=== PATIENT | male | born 1950 | race African-American/Black ===

== ENCOUNTER 2020-07-29 08:10 | Day surgery (SDC) | payer MEDICARE, SELFPAY ==
[2020-07-23 13:22] VITALS: BMI 29.6
--- NOTE | 2020-07-27 15:22 | P.CONAN_ITS ---
Documented by User: Nicki Marx 07/27/20 15:24 HPI - Anesthesia Eval Consult details Narrative: 69yo M for Colonoscopy [facility] Past Medical History Medical History Diabetes High cholesterol History of dysphagia Hypertension Surgical History Surgical History History of esophagogastroduodenoscopy (EGD) Hx of colonoscopy Hx of tonsillectomy Social History Social History Smoking Status: Never smoker Second Hand Smoke Exposure: Yes Use of substances other than those prescribed or required for medical reasons: No Advance Directives: No Advance Directives Information Provided: No Meds Allergies Allergy/AdvReac Type Severity Reaction Status Date / Time lisinopril Allergy Unknown anaphalyxis Verified 04/08/20 00:00 Home Medications Medication Instructions Recorded Confirmed Type acetaminophen [Tylenol] 650 mg PO QID PRN 07/23/20 07/23/20 History aspirin [Aspir-81] 81 mg PO DAILY 07/23/20 07/29/20 History cholecalciferol (vitamin D3) 25 mcg PO DAILY 07/23/20 07/23/20 History [Vitamin D3] metformin mg PO 07/23/20 History metoprolol succinate 100 mg PO DAILY 07/23/20 07/29/20 History simvastatin 40 mg PO DAILY 07/23/20 07/23/20 History Exam Exam Date and Time: July 27, 2020 1522 Height,Weight and Vital Signs: Height 5 ft 8 in Weight 88.451 kg Pertinent Lab Results Pertinent Lab Results: Laboratory Tests 02/17/20 02/17/20 06:23 06:23 WBC 8.3 Hgb 13.9 L Hct 42.1 Plt Count 459 H D Sodium 138 Potassium 4.2 Chloride 103 BUN 18 H Creatinine 1.11 Assessment and Plan Assessment Anesthesia Assessment: Chart Reviewed Documented by User: Joni Glass 07/29/20 09:42 [facility] Past Medical History Medical History Diabetes High cholesterol History of dysphagia Hypertension Surgical History Surgical History History of esophagogastroduodenoscopy (EGD) Hx of colonoscopy Hx of tonsillectomy Social History Social History Smoking Status: Never smoker Second Hand Smoke Exposure: Yes Use of substances other than those prescribed or required for medical reasons: No Advance Directives: No Advance Directives Information Provided: No Meds Allergies Allergy/AdvReac Type Severity Reaction Status Date / Time lisinopril Allergy Unknown anaphalyxis Verified 04/08/20 00:00 Home Medications Medication Instructions Recorded Confirmed Type acetaminophen [Tylenol] 650 mg PO QID PRN 07/23/20 07/23/20 History aspirin [Aspir-81] 81 mg PO DAILY 07/23/20 07/29/20 History cholecalciferol (vitamin D3) 25 mcg PO DAILY 07/23/20 07/23/20 History [Vitamin D3] metformin mg PO 07/23/20 History metoprolol succinate 100 mg PO DAILY 07/23/20 07/29/20 History simvastatin 40 mg PO DAILY 07/23/20 07/23/20 History Exam Airway Mallampati Class: II TM Dist: >3cm Neck ROM: Full Denture: Upper Loose/Missing/Broken Teeth: Yes Heart: [id number] Lungs: ctab/l Assessment and Plan Assessment Anesthesia Assessment: Anesthesia Plan Discussed, Smoking Cess. Discussed, PAT Visit and Chart Reviewed Final Anesthetic Review NPO: Yes ASA Class: III Final Preanesthetic Review: No Changes in Pt Med Stat, Meds/Allgs Chart Reviewed, Consent Obtained/Reviewed and Anes Risks/Benef Reviewed Patient Risk: Intermediate Procedure Risk: Low Assessment/Block/Sedation in SS: Assess/Block/Sedation-SS Anesthetic Plan Anesthetic Plan: MAC: Disposition: Standard PACU
[2020-07-29 08:38] VITALS: BP 128/83; PULSE 69; RESP 16; TEMP 36.1; O2SAT 98
[2020-07-29] MEDS: Lactated Ringers 1,000 ML 100 ML IVCONT (08:38)
[2020-07-29 08:46] LABS: Glucose, Whole Blood 117 mg/dL (60-115)
[2020-07-29 08:51] VITALS: BMI 30.4
[2020-07-29 10:42] VITALS: BP 106/65; PULSE 60; RESP 14; TEMP 36; O2SAT 97
--- NOTE | 2020-07-29 10:45 | PM.OP ---
Brief Operative Note Date of procedure: 07/29/20 Pre-op diagnosis: Screening Post-op diagnosis: other (Diverticulosis, Internal Hemorrhoids) Procedure: Colonoscopy to cecum and TI Surgeon: Kayden Leon Anesthesia: MAC Estimated blood loss (mL): 0 Pathology: none sent Condition: stable Disposition: PACU
[2020-07-29 10:57] VITALS: BP 117/74; PULSE 66; RESP 18; TEMP 36.1; O2SAT 97
--- NOTE | 2020-07-29 12:11 | OP_ITS ---
SURGEON: Kayden Leon MD INDICATIONS: The patient presents for followup of colorectal cancer screening and personal history of tubular adenoma of the colon. Full consent has been obtained from him for this, including risks of bleeding and perforation. PREOPERATIVE DIAGNOSIS: POSTOPERATIVE DIAGNOSIS: PROCEDURE PERFORMED: Colonoscopy to cecum and terminal ileum. ESTIMATED BLOOD LOSS: COMPLICATIONS: ANESTHESIA: Monitored anesthesia care. ASSISTANTS: SPECIMENS: PREOPERATIVE DIAGNOSES: Colorectal cancer screening and personal history of tubular adenoma of the colon. POSTOPERATIVE DIAGNOSES: Colorectal cancer screening, personal history of tubular adenoma of the colon, diverticulosis, internal hemorrhoids. DESCRIPTION OF PROCEDURE: The patient was placed in the left lateral decubitus position. The digital rectal exam revealed no abnormalities. The Olympus video pediatric colonoscope was entered into the rectum and advanced easily to the cecum. Once in the cecum, I did identify normal-appearing cecal pouch with appendiceal orifice and a normal-appearing ileocecal valve. The terminal ileum was cannulated and appeared normal. The scope was withdrawn back into the colon. The entire cecum and ileocecal valve appeared normal. The scope was slowly withdrawn assessing all mucosal surfaces carefully. Preparation was excellent. I did not visualize any sign of polyps, colitis, or angiodysplasia. There was a mild amount of sigmoid diverticulosis. In the rectum, scope was retroflexed visualizing small internal hemorrhoids, but no other pathology. The rectal mucosa appeared normal. The scope was straightened and withdrawn from the patient. He tolerated the procedure well and was returned to recovery area in stable condition. IMPRESSION: 1. Diverticulosis. 2. Internal hemorrhoids. PLAN: I would recommend a repeat colonoscopy in 5 years for further screening and surveillance. He was advised that he could resume his aspirin today. MD IVAN Ross/MORIS / [id number]
== END 2020-07-29 11:19 | disposition home or self-care (01) ==
PROVIDERS: PCP Internal Medicine; Visit Provider Internal Medicine
PROC: 0DJD8ZZ Inspection of Lower Intestinal Tract, Via Natural or Artificial Opening Endoscopic (ICD-10-PCS; CPT 45378; principal; 2020-07-29 09:30)
DX: Z12.11 Encounter for screening for malignant neoplasm of colon (principal); Z86.010 Personal history of colon polyps; K57.30 Diverticulosis of large intestine without perforation or abscess without bleeding; K64.8 Other hemorrhoids; E11.9 Type 2 diabetes mellitus without complications; I10 Essential (primary) hypertension; E78.00 Pure hypercholesterolemia, unspecified; Z79.82 Long term (current) use of aspirin; Z79.84 Long term (current) use of oral hypoglycemic drugs; Z79.899 Other long term (current) drug therapy
CPT/HCPCS: G0105; 82947

== ENCOUNTER 2021-02-18 07:31 | Outpatient (REF) | payer MEDICARE, SELFPAY ==
--- NOTE | 2021-02-18 07:47 | ECG_ITS ---
Test Reason : HTN Blood Pressure : / mmHG Vent. Rate : 060 BPM Atrial Rate : 060 BPM P-R Int : 198 ms QRS Dur : 098 ms QT Int : 472 ms P-R-T Axes : 052 028 020 degrees QTc Int : 472 ms Sinus rhythm with occasional Premature ventricular complexes Otherwise normal ECG No previous ECGs available Referred By: Elvie Velez Electronically Signed By:Alejandro Martines
[2021-02-18 08:23] LABS: MANUAL DIFF FLAG NO
[2021-02-18 08:29] LABS: Basophils Percent Auto 0.1 % (0-2); Eosinophils Absolute Auto 0.1 X10*3/uL (0.0-0.4); Eosinophils Percent Auto 1.5 % (0-4); Hematocrit 39.8 % (42-52); Hemoglobin 13.2 g/dl (14.0-18.0); Imm Gran Abs Auto 0.01 X10*3/uL (0.00-0.03); Imm Gran Pct Auto 0.1 % (0.0-0.4); Immature Retic Fraction 15.3 % (2.3-13.4); Lymphocytes Absolute Auto 3.9 X10*3/uL (1.2-4.9); Mean Corpuscular HGB Conc 33.2 g/dl (31.0-36.0); Mean Corpuscular Volume 84.3 fL (80-98); Mean Platelet Volume 10.1 fL (9.4-12.4); Monocytes Absolute Auto 0.7 X10*3/uL (0.1-1.2); Neutrophils Absolute Auto 3.2 X10*3/uL (2.0-8.3); Neutrophils Percent Auto 40.3 % (45-73); Platelet Count 282 X10*3/uL (160-400); Red Blood Count 4.72 X10*6/uL (4.60-5.80); Red Cell Distribution Width 15.6 % (11.0-16.0); Retic HGB Equivalent 32.7 pg (30.0-35.0); Reticulocyte Percent 1.5 % (0.5-1.8); Reticulocytes Absolute 0.068 X10*6/uL (0.026-0.095); White Blood Count 7.9 X10*3/uL (4.8-10.8)
[2021-02-18 08:40] LABS: Estimated Average Glucose 134 mg/dL; Hemoglobin A1c % 6.3 %
[2021-02-18 09:05] LABS: Alanine Aminotransferase 22 U/L (0-40); Albumin Level 4.3 g/dL (3.5-5.0); Alkaline Phosphatase 84 U/L (39-117); Anion Gap 13 (12-20); Aspartate Amino Transferase 18 U/L (5-37); Bilirubin Total 0.6 mg/dL (0.0-1.0); Blood Urea Nitrogen 12 mg/dL (9-16); Calcium 9.9 mg/dL (8.4-10.2); Carbon Dioxide 27 mmol/L (22-29); Chloride 104 mmol/L (96-108); Cholesterol 129 mg/dL; Estimated Glomerular Filt Rate 57; Glucose Random 112 mg/dL (60-115); HDL Cholesterol 45 mg/dL; Iron 89 mcg/dL (45-160); LDL Cholesterol Calculated 59 mg/dl; Percent Iron Saturation 29 % (15-50); Potassium 3.9 mmol/L (3.3-5.1); Sodium 140 mmol/L (135-145); Total Iron Binding Capacity 302 mcg/dL (228-428); Total Protein 7.6 g/dL (6.5-8.0); Triglycerides 127 mg/dL; Unsaturated Iron Binding 213 ug/dL
[2021-02-18 09:29] LABS: Ferritin 396 ng/mL (20-250); Free T4 (Free Thyroxine) 0.98 ng/dL (0.71-1.85); Thyroid Stimulating Hormone 1.06 uIU/mL (0.32-4.0)
[2021-02-18 09:34] LABS: Folate 8.3 ng/mL (> or = 4.0); Vitamin B12 850 pg/mL (200-900)
[2021-02-18 10:17] LABS: Creatinine Urine 212.21 mg/dL; Microalbum/Creatinine Ratio Ur 13.1 ug/mg cr
== END 2021-02-18 07:32 | disposition home or self-care (01) ==
LOC: HO.LAB 07:31
PROVIDERS: PCP Internal Medicine; Visit Provider Internal Medicine
DX: I10 Essential (primary) hypertension (principal); E78.00 Pure hypercholesterolemia, unspecified; E11.65 Type 2 diabetes mellitus with hyperglycemia
CPT/HCPCS: 36415; 80053; 80061; 82043; 82607; 82728; 82746; 83036; 83540; 84439; 84443; 85025; 85045; 93005

== ENCOUNTER 2021-08-07 09:44 | Emergency (ER) | payer MEDICARE, SELFPAY ==
[2021-08-07 10:37] VITALS: BP 140/85; PULSE 59; RESP 16; TEMP 36.5; O2SAT 98; BMI 30.4
--- NOTE | 2021-08-07 10:55 | ED_ITS ---
HPI - Eye Problem General Chief complaint: Eye Problems Stated complaint: eye issue Time Seen by Provider: 08/07/21 10:55 History of Present Illness HPI Narrative: Patient complains of left eye redness and discharge for 2 days with no eye pain or vision loss there is no photophobia he does not recall any trauma Related Data Home Medications Medication Instructions Recorded Confirmed acetaminophen 325 mg tablet 650 mg PO QID PRN 07/23/20 04/07/21 (Tylenol) aspirin 81 mg tablet,delayed 81 mg PO DAILY 07/23/20 04/07/21 release cholecalciferol (vitamin D3) 25 25 mcg PO DAILY 07/23/20 04/07/21 mcg (1,000 unit) capsule (Vitamin D3) Previous Rx's Medication Instructions Recorded clindamycin phosphate 1 % lotion 1 appl TOPICAL BEDTIME #60 ml 10/09/20 tadalafil 20 mg tablet (Cialis) 20 mg PO .COMPLEX PRN #10 tab 10/09/20 glimepiride 2 mg tablet 2 mg PO QAM #90 tab 12/10/20 hydrochlorothiazide 25 mg tablet 25 mg PO QAM #90 tab 01/26/21 simvastatin 40 mg tablet 40 mg PO BEDTIME #90 tab 03/23/21 metoprolol succinate 100 mg 100 mg PO DAILY 90 Days #90 tab 04/29/21 tablet,extended release 24 hr metformin 500 mg tablet 500 mg PO BID 90 Days #180 tab 05/10/21 cyanocobalamin (vitamin B-12) 1,000 mcg PO DAILY #90 tab 06/25/21 1,000 mcg tablet terbinafine HCl 250 mg tablet 250 mg PO DAILY 90 Days #90 tab 07/09/21 moxifloxacin 0.5 % eye drops 1 drp OPHTHALMIC (EYE) TID 5 Days 08/07/21 (Vigamox) #3 ml Allergies Allergy/AdvReac Type Severity Reaction Status Date / Time lisinopril Allergy Unknown anaphalyxis Verified 07/09/21 08:45 Review of Systems Review of Systems: Positive for left eye redness and discharge Negatives are no fever no chills no dizziness no weakness no headache no eye pain no photophobia no blurry vision no vision loss no rash Yes all other systems are reviewed and are negative PMFSH Past Medical History Source: nursing notes reviewed Medical History (Updated 08/07/21 @ 11:30 by TA Perdue) Erectile dysfunction High cholesterol History of dysphagia Hypertension Obesity (BMI 30-39.9) Type 2 diabetes mellitus with hyperglycemia Vitamin D deficiency Surgical History History of esophagogastroduodenoscopy (EGD) Hx of colonoscopy Hx of tonsillectomy Family History Family History (Updated 09/28/20 @ 08:50 by Mary Denton [facility]) Father Hypertension Mother Uterine cancer Sister In good health Brother No problems noted. Social History Social History (Updated 04/07/21 @ 09:50 by Elvie Velez MD) Housing: House Alcohol intake: current Alcohol intake frequency: a few times a week Patient Tobacco Use Status: Never used Tobacco e-Cigarette/Vaping Use: Never Used Second Hand Smoke Exposure: Yes Advance Directives: No service: No Current occupational status: employed and retired Physical Exam Vital Signs: Vital Signs: Last Vital Signs Temp 97.7 F 08/07/21 10:37 Pulse 59 08/07/21 10:37 Resp 16 08/07/21 10:37 BP 140/85 H 08/07/21 10:37 Pulse Ox 98 08/07/21 10:37 Body Mass Index 30.4 General appearance no acute distress Head is normocephalic atraumatic Eyes pupils equal round reactive to light extraocular motions are intact visual acuity is 2020 bilaterally The left eye was somewhat injected in the conjunctiva there was a watery discharge, exam with fluorescein did not show any ulcerations or abrasions, no dye uptake The neck is supple Respiratory no distress Skin no rashes Course Course Course Narrative: Patient with complaint of left eye discharge and redness without any eye pain photophobia or vision changes is treated with antibiotic for conjunctivitis Discharge Plan Discharge Clinical Impression: Acute conjunctivitis of left eye Patient Disposition: Home, Self-Care Additional Instructions: Use eyedrops as directed If not improved in 2 days follow with your eye doctor, or call our eye doctor Dr. Buchanan Return to ER any time for vision loss, worsening eye pain any worse condition or any concerns Prescriptions: New moxifloxacin [Vigamox] 0.5 % drops 1 drp ophthalmic (eye) TID 5 Days Qty: 3 RF: 0 No Action glimepiride 2 mg tablet 2 mg PO QAM Qty: 90 RF: 2 hydrochlorothiazide 25 mg tablet 25 mg PO QAM Qty: 90 RF: 2 simvastatin 40 mg tablet 40 mg PO BEDTIME Qty: 90 RF: 2 metoprolol succinate 100 mg tablet extended release 24 hr 100 mg PO DAILY 90 Days Qty: 90 RF: 2 metformin 500 mg tablet 500 mg PO BID 90 Days Qty: 180 RF: 2 cyanocobalamin (vitamin B-12) 1,000 mcg tablet 1,000 mcg PO DAILY Qty: 90 RF: 2 acetaminophen [Tylenol] 325 mg Tablet 650 mg PO QID PRN (Reason: Pain) RF: 0 aspirin [Aspir-81] 81 mg Tablet,Delayed Release (Dr/Ec) 81 mg PO DAILY RF: 0 cholecalciferol (vitamin D3) [Vitamin D3] 25 mcg (1,000 unit) Capsule 25 mcg PO DAILY RF: 0 terbinafine HCl 250 mg tablet 250 mg PO DAILY 90 Days Qty: 90 RF: 0 clindamycin phosphate 1 % lotion 1 appl topical BEDTIME Qty: 60 RF: 0 tadalafil [Cialis] 20 mg tablet 20 mg PO .COMPLEX PRN (Reason: sexual activity) Qty: 10 RF: 4 Referrals: Manish Buchanan [Physician] - 2 days
[2021-08-07] MEDS: Tetracaine HCl/PF 0.5% Oph Sol 4 ML DROPS 1 DROP EYE-LEFT (11:08)
[2021-08-07] MEDS: Fluorescein Sodium STRIP 1 STRIP EYE-LEFT (11:08)
== END 2021-08-07 11:42 | disposition home or self-care (01) ==
PROVIDERS: Emergency Provider Emergency Medicine Emergency Medical Services; PCP Internal Medicine
DX: H10.32 Unspecified acute conjunctivitis, left eye (principal); I10 Essential (primary) hypertension; E11.9 Type 2 diabetes mellitus without complications
CPT/HCPCS: 99283

== ENCOUNTER 2021-09-20 19:09 | Emergency (ER) | payer MEDICARE, SELFPAY ==
[2021-09-20 20:30] VITALS: BP 142/82; PULSE 76; RESP 16; TEMP 36.8; O2SAT 99; BMI 30.4
--- NOTE | 2021-09-20 21:40 | ED_ITS ---
HPI - General Adult General Chief complaint: General Medical Stated complaint: hiccups for 17 hrs Time Seen by Provider: 09/20/21 21:26 Source: patient Mode of arrival: ambulatory Limitations: no limitations History of Present Illness HPI narrative: 70 y/o male with history of diabetes, HTN, HLD, obesity who presents to the ER with intractable hiccups for the last 17 hours. He reports not being able to sleep at all last night because the gums. He has tried several home remedies for hiccups including drinking cold water, holding his breath, eating peer sugar, and he induced vomiting to try to stop the hiccups as well. Once he vomited they did resolve for about 10 or 15 minutes and then they came right back. He reports he has never headache abscess long before, previously has had them for about an hour but never this long. MD complaint: Intractable hiccups Onset (ago): hour(s) (17) Location: chest Radiation: non-radiation Severity: moderate Quality: aching Pain Consistency: constant Relieving factors: none Exacerbating factors: none Associated symptoms: denies other symptoms Treatments prior to arrival: none Related Data Home Medications Medication Instructions Recorded Confirmed acetaminophen 325 mg tablet 650 mg PO QID PRN 07/23/20 04/07/21 (Tylenol) aspirin 81 mg tablet,delayed 81 mg PO DAILY 07/23/20 04/07/21 release cholecalciferol (vitamin D3) 25 25 mcg PO DAILY 07/23/20 04/07/21 mcg (1,000 unit) capsule (Vitamin D3) Previous Rx's Medication Instructions Recorded clindamycin phosphate 1 % lotion 1 appl TOPICAL BEDTIME #60 ml 10/09/20 tadalafil 20 mg tablet (Cialis) 20 mg PO .COMPLEX PRN #10 tab 10/09/20 hydrochlorothiazide 25 mg tablet 25 mg PO QAM #90 tab 01/26/21 simvastatin 40 mg tablet 40 mg PO BEDTIME #90 tab 03/23/21 metoprolol succinate 100 mg 100 mg PO DAILY 90 Days #90 tab 04/29/21 tablet,extended release 24 hr metformin 500 mg tablet 500 mg PO BID 90 Days #180 tab 05/10/21 cyanocobalamin (vitamin B-12) 1,000 mcg PO DAILY #90 tab 06/25/21 1,000 mcg tablet terbinafine HCl 250 mg tablet 250 mg PO DAILY 90 Days #90 tab 07/09/21 moxifloxacin 0.5 % eye drops 1 drp OPHTHALMIC (EYE) TID 5 Days 08/07/21 (Vigamox) #3 ml glimepiride 2 mg tablet 2 mg PO QAM #90 tab 09/06/21 chlorpromazine 25 mg tablet 25 mg PO TID #9 tab 09/21/21 Allergies Allergy/AdvReac Type Severity Reaction Status Date / Time lisinopril Allergy Unknown anaphalyxis Verified 07/09/21 08:45 Review of Systems Constitutional: Constitutional: Denies chills, Denies fever(s) and Reports headache(s) Eyes: Eyes: Reports no additional eye complaints ENT: Denies dysphagia, Denies otalgia, Reports headache(s) and Denies odynophagia Cardiovascular: Cardiovascular: Denies chest pain and Denies dyspnea Respiratory: Respiratory: Denies cough and Denies dyspnea Gastrointestinal: Gastrointestinal: Denies dysphagia, Denies nausea, Denies odynophagia and Reports vomiting Neurologic: Reports Neuro-related abnormal movements and Reports headache(s) Psychiatric: Psychiatric: Reports abnormal sleep pattern, Reports anxiety and Reports depression [facility] Past Medical History Medical History (Updated 09/21/21 @ 00:26 by TA James) Erectile dysfunction High cholesterol History of dysphagia Hypertension Obesity (BMI 30-39.9) Type 2 diabetes mellitus with hyperglycemia Vitamin D deficiency Surgical History History of esophagogastroduodenoscopy (EGD) Hx of colonoscopy Hx of tonsillectomy Family History Family History (Updated 09/28/20 @ 08:50 by Mary Denton Katerine) Father Hypertension Mother Uterine cancer Sister In good health Brother No problems noted. Social History Social History (Updated 04/07/21 @ 09:50 by Elvie Velez MD) Housing: House Alcohol intake: current Alcohol intake frequency: a few times a week Patient Tobacco Use Status: Never used Tobacco e-Cigarette/Vaping Use: Never Used Second Hand Smoke Exposure: Yes Advance Directives: No Advance Directives Information Provided: No service: No Current occupational status: employed and retired Physical Exam Vital Signs: Vital Signs: Last Vital Signs Temp 98.2 F 09/20/21 20:30 Pulse 76 01/03/22 20:30 Resp 16 09/20/21 20:30 BP 142/82 H 09/20/21 20:30 Pulse Ox 99 09/20/21 20:30 BMI result Body Mass Index 30.4 Appearance: Alert. Oriented X3. No acute distress. HEENT: normal external inspection Neck: Normal inspection. Neck supple. CVS: Normal heart rate and rhythm. Pulses normal. Respiratory: No respiratory distress. Breath sounds normal. Skin: Skin warm and dry. Normal skin color. Normal skin turgor. No rashes. Extremities: atraumatic x4, normal inspection, normal ROM Neuro: Oriented X 3. No motor deficit. No sensory deficit. Course Course Course Narrative: 70-year-old male presenting to the ER with intractable hiccups for the last 18 hours. Will give a trial of PPI and Compazine and re-evaluate. We tried several attempts at making hiccups with no success. Reevaluation(s) Reevaluation #1: No improvement will give a dose of Thorazine reassess. Reevaluation #2: Patient continues to have hiccups. Will give additional dose of Thorazine and plan to DC on a very short course given his age. He will follow-up with his PCP tomorrow. Critical Care Time Critical Care Time Critical Care Time: No Discharge Plan Discharge Clinical Impression: Intractable hiccoughs Patient Disposition: Home, Self-Care Instructions: Hiccups (ED) Additional Instructions: If you develop new or worsening symptoms call 911 or come back to the ER for further evaluation. Prescriptions: New chlorpromazine 25 mg tablet 25 mg PO TID Qty: 9 RF: 0 No Action hydrochlorothiazide 25 mg tablet 25 mg PO QAM Qty: 90 RF: 2 simvastatin 40 mg tablet 40 mg PO BEDTIME Qty: 90 RF: 2 metoprolol succinate 100 mg tablet extended release 24 hr 100 mg PO DAILY 90 Days Qty: 90 RF: 2 metformin 500 mg tablet 500 mg PO BID 90 Days Qty: 180 RF: 2 cyanocobalamin (vitamin B-12) 1,000 mcg tablet 1,000 mcg PO DAILY Qty: 90 RF: 2 glimepiride 2 mg tablet 2 mg PO QAM Qty: 90 RF: 2 acetaminophen [Tylenol] 325 mg Tablet 650 mg PO QID PRN (Reason: Pain) RF: 0 aspirin [Aspir-81] 81 mg Tablet,Delayed Release (Dr/Ec) 81 mg PO DAILY RF: 0 cholecalciferol (vitamin D3) [Vitamin D3] 25 mcg (1,000 unit) Capsule 25 mcg PO DAILY RF: 0 moxifloxacin [Vigamox] 0.5 % drops 1 drp ophthalmic (eye) TID 5 Days Qty: 3 RF: 0 terbinafine HCl 250 mg tablet 250 mg PO DAILY 90 Days Qty: 90 RF: 0 clindamycin phosphate 1 % lotion 1 appl topical BEDTIME Qty: 60 RF: 0 tadalafil [Cialis] 20 mg tablet 20 mg PO .COMPLEX PRN (Reason: sexual activity) Qty: 10 RF: 4
[2021-09-20] MEDS: Omeprazole 40 MG CAPSULE.DR PO (22:13)
[2021-09-20] MEDS: Prochlorperazine Maleate 5 MG TABLET 10 MG PO (22:13)
[2021-09-20] MEDS: chlorproMAZINE HCl 25 MG TABLET PO (22:58)
[2021-09-21] MEDS: chlorproMAZINE HCl 25 MG TABLET PO (00:55)
== END 2021-09-21 01:18 | disposition home or self-care (01) ==
PROVIDERS: Emergency Provider Internal Medicine; PCP Internal Medicine
DX: R06.6 Hiccough (principal); E11.9 Type 2 diabetes mellitus without complications; I10 Essential (primary) hypertension; E78.5 Hyperlipidemia, unspecified; Z79.02 Long term (current) use of antithrombotics/antiplatelets; Z79.899 Other long term (current) drug therapy
CPT/HCPCS: 99283

== ENCOUNTER 2022-02-21 05:58 | Outpatient (REF) | payer MEDICARE, SELFPAY ==
[2022-02-21 06:16] LABS: MANUAL DIFF FLAG NO
[2022-02-21 07:29] LABS: Basophils Percent Auto 0.2 % (0-2); Eosinophils Absolute Auto 0.1 X10*3/uL (0.0-0.4); Eosinophils Percent Auto 1.2 % (0-4); Hematocrit 39.9 % (42.0-52.0); Hemoglobin 13.3 g/dl (14.0-18.0); Imm Gran Abs Auto 0.01 X10*3/uL (0.00-0.03); Imm Gran Pct Auto 0.2 % (0.0-0.4); Lymphocytes Absolute Auto 3.2 X10*3/uL (1.2-4.9); Lymphocytes Percent Auto 49.8 % (20-40); Mean Corpuscular HGB Conc 33.3 g/dl (31.0-36.0); Mean Corpuscular Hemoglobin 28.5 pg (27.0-33.0); Mean Corpuscular Volume 85.4 fL (80.0-98.0); Monocytes Absolute Auto 0.7 X10*3/uL (0.1-1.2); Monocytes Percent Auto 10.8 % (2-11); Neutrophils Absolute Auto 2.4 x10*3/uL (2.0-8.3); Neutrophils Percent Auto 37.8 % (45-73); Platelet Count 396 X10*3/uL (160-400); Red Blood Count 4.67 X10*6/uL (4.60-5.80); Red Cell Distribution Width 13.5 % (11.0-16.0); White Blood Count 6.5 X10*3/uL (4.8-10.8)
[2022-02-21 08:00] LABS: Estimated Average Glucose 143 mg/dL; Hemoglobin A1c % 6.6 %
[2022-02-21 08:03] LABS: Alanine Aminotransferase 20 U/L (0-40); Albumin Level 4.2 g/dL (3.5-5.0); Alkaline Phosphatase 98 U/L (39-117); Anion Gap 17 (12-20); Aspartate Amino Transferase 17 U/L (5-37); Bilirubin Total 0.5 mg/dL (0.0-1.0); Blood Urea Nitrogen 10 mg/dL (9-16); Calcium 10.1 mg/dL (8.4-10.2); Carbon Dioxide 26 mmol/L (22-29); Chloride 100 mmol/L (96-108); Cholesterol 117 mg/dL; Estimated Glomerular Filt Rate > 60; Glucose Random 115 mg/dL (60-115); HDL Cholesterol 39 mg/dL; Iron 98 mcg/dL (45-160); LDL Cholesterol Calculated 60 mg/dl; Percent Iron Saturation 35 % (15-50); Potassium 3.7 mmol/L (3.3-5.1); Sodium 139 mmol/L (135-145); Total Iron Binding Capacity 278 mcg/dL (228-428); Total Protein 7.9 g/dL (6.5-8.0); Triglycerides 93 mg/dL; Unsaturated Iron Binding 180 ug/dL
[2022-02-21 08:14] LABS: Ferritin 437 ng/mL (20-250); Free T4 (Free Thyroxine) 1.03 ng/dL (0.71-1.85); Prostate Specific Antigen Scr 4.45 ng/mL (<0.05-4.0); Thyroid Stimulating Hormone 0.62 uIU/mL (0.32-4.0)
[2022-02-21 08:57] LABS: Creatinine Urine 243.26 mg/dL; Microalbum/Creatinine Ratio Ur 10.6 ug/mg cr
[2022-02-21 13:54] LABS: Vitamin B12 > 2000 pg/mL (200-900)
== END 2022-02-21 05:59 | disposition home or self-care (01) ==
LOC: HO.LAB 05:58
PROVIDERS: PCP Internal Medicine; Visit Provider Internal Medicine
DX: Z12.5 Encounter for screening for malignant neoplasm of prostate (principal); E78.00 Pure hypercholesterolemia, unspecified; E11.65 Type 2 diabetes mellitus with hyperglycemia; I10 Essential (primary) hypertension
CPT/HCPCS: 36415; 80053; 80061; 82043; 82607; 82728; 82746; 83036; 83540; 84153; 84439; 84443; 85025

== ENCOUNTER 2022-03-18 08:28 | Outpatient (REF) | payer MEDICARE, SELFPAY ==
[2022-03-18 10:18] LABS: Creatinine Urine 113.53 mg/dL
[2022-03-18 10:41] LABS: PSA,Total (Free>4and<10) 4.06 ng/mL (0.00-4.00)
[2022-03-22 11:16] LABS: Free Prostate Spec Ag 0.4 ng/mL; Percent Free Prostate Spec Ag 12 % (calc) (>25); Prostate Specific Ag Total 3.4 ng/mL (< OR = 4.0)
== END 2022-03-18 08:29 | disposition home or self-care (01) ==
LOC: HO.LAB 08:28
PROVIDERS: PCP Internal Medicine; Visit Provider Internal Medicine
DX: R97.20 Elevated prostate specific antigen [PSA] (principal); E11.65 Type 2 diabetes mellitus with hyperglycemia; Z12.5 Encounter for screening for malignant neoplasm of prostate
CPT/HCPCS: 36415; 84153; 84154

== ENCOUNTER 2023-02-20 06:00 | Outpatient (REF) | payer MEDICARE, SELFPAY ==
[2023-02-20 06:14] LABS: MANUAL DIFF FLAG NO
[2023-02-20 07:30] LABS: Basophils Percent Auto 0.1 % (0-2); Eosinophils Absolute Auto 0.1 X10*3/uL (0.0-0.4); Eosinophils Percent Auto 1.6 % (0-4); Hematocrit 36.4 % (42.0-52.0); Hemoglobin 12.1 g/dl (14.0-18.0); Imm Gran Abs Auto 0.02 X10*3/uL (0.00-0.03); Imm Gran Pct Auto 0.2 % (0.0-0.4); Lymphocytes Absolute Auto 4.4 X10*3/uL (1.2-4.9); Lymphocytes Percent Auto 55.1 % (20-40); Mean Corpuscular HGB Conc 33.2 g/dl (31.0-36.0); Mean Corpuscular Hemoglobin 28.7 pg (27.0-33.0); Mean Corpuscular Volume 86.3 fL (80.0-98.0); Mean Platelet Volume 10.9 fL (9.4-12.4); Monocytes Absolute Auto 0.7 X10*3/uL (0.1-1.2); Monocytes Percent Auto 9.1 % (2-11); Neutrophils Absolute Auto 2.7 x10*3/uL (2.0-8.3); Neutrophils Percent Auto 33.9 % (45-73); Platelet Count 304 X10*3/uL (160-400); Red Blood Count 4.22 X10*6/uL (4.60-5.80); Red Cell Distribution Width 15.4 % (11.0-16.0); White Blood Count 8.1 X10*3/uL (4.8-10.8)
[2023-02-20 07:48] LABS: Estimated Average Glucose 128 mg/dL; Hemoglobin A1c % 6.1 %
[2023-02-20 08:21] LABS: Alanine Aminotransferase 16 U/L (0-40); Albumin Level 3.9 g/dL (3.5-5.0); Alkaline Phosphatase 79 U/L (39-117); Anion Gap 12 (12-20); Aspartate Amino Transferase 16 U/L (5-37); Bilirubin Total 0.4 mg/dL (0.0-1.0); Blood Urea Nitrogen 10 mg/dL (9-16); Calcium 9.6 mg/dL (8.4-10.2); Carbon Dioxide 28 mmol/L (22-29); Chloride 105 mmol/L (96-108); Cholesterol 137 mg/dL; Estimated Glomerular Filt Rate > 60; Glucose Random 105 mg/dL (60-115); HDL Cholesterol 47 mg/dL; LDL Cholesterol Calculated 71 mg/dl; Potassium 4.1 mmol/L (3.3-5.1); Sodium 141 mmol/L (135-145); Total Protein 7.4 g/dL (6.5-8.0); Triglycerides 95 mg/dL
[2023-02-20 08:43] LABS: Folate 9.6 ng/mL (> or = 4.0); Prostate Specific Antigen Scr 6.13 ng/mL (<0.05-4.0); Thyroid Stimulating Hormone 0.89 uIU/mL (0.32-4.0); Vitamin B12 1524 pg/mL (200-900)
[2023-02-20 09:12] LABS: Creatinine Urine 73.32 mg/dL; Microalbum/Creatinine Ratio Ur 16.3 ug/mg cr
== END 2023-02-20 06:01 | disposition home or self-care (01) ==
LOC: HO.LAB 06:00
PROVIDERS: PCP Internal Medicine; Visit Provider Internal Medicine
DX: Z12.5 Encounter for screening for malignant neoplasm of prostate (principal); E11.65 Type 2 diabetes mellitus with hyperglycemia; E78.00 Pure hypercholesterolemia, unspecified; R97.20 Elevated prostate specific antigen [PSA]
CPT/HCPCS: 36415; 80053; 80061; 82043; 82607; 82746; 83036; 84153; 84439; 84443; 85025

== ENCOUNTER → 2023-03-14 10:41 | Outpatient (BNVA) | payer MEDICARE, SELFPAY | PROVIDERS: PCP Internal Medicine; Visit Provider Nurse Practitioner Family | DX: R97.20 Elevated prostate specific antigen [PSA] (principal); R39.15 Urgency of urination; R35.0 Frequency of micturition; R35.1 Nocturia | CPT/HCPCS: 99202 ==

== ENCOUNTER 2023-03-29 09:30 | Outpatient (REF) | payer MEDICARE, SELFPAY ==
--- NOTE | ~2023-03-29 | US_ITS ---
EXAMINATION: US RETROPERITONEAL COMPLETE (RENAL) CLINICAL INFORMATION: Nocturia. COMPARISON: None available. TECHNIQUE: Real-time imaging of the kidneys and bladder. FINDINGS: RIGHT KIDNEY: 9.5 x 4.7 x 5.2 cm (SAG x AP x TRV). The kidney is normal in size, contour, and echogenicity. Renal cortical thickness is normal. No calculi or focal parenchymal lesions. No hydronephrosis. LEFT KIDNEY: 10.4 x 5.7 x 6.2 cm (SAG x AP x TRV). The kidney is normal in size, contour, and echogenicity. Renal cortical thickness is normal. No calculi or focal parenchymal lesions. No hydronephrosis. BLADDER: Well distended and normal. Bilateral ureteral jets are demonstrated. Prevoid bladder volume is 212 mL. Postvoid bladder volume is 90.4 mL. A simply mildly thick-walled and trabeculated urinary bladder. ADDITIONAL FINDINGS: Prostate is enlarged with a volume of 41.2 mL. US/US retroperitoneal comp IMPRESSION: 1. Small to moderate postvoid bladder residual of 90.4 mL. 2. Possibly mildly thick-walled and trabeculated urinary bladder. Consider correlation with any symptoms of cystitis or bladder outlet obstruction 3. Prostate is enlarged with a volume of 41.2 mL.
[2023-03-29 13:23] LABS: PSA,Total (Free>4and<10) 5.09 ng/mL (0.00-4.00)
[2023-03-31 10:43] LABS: Free Prostate Spec Ag 0.3 ng/mL; Percent Free Prostate Spec Ag 7 % (calc) (>25); Prostate Specific Ag Total 4.6 ng/mL (< OR = 4.0)
== END 2023-03-29 09:31 | disposition home or self-care (01) ==
LOC: HO.US 09:30
PROVIDERS: PCP Internal Medicine; Visit Provider Nurse Practitioner Family
DX: R35.1 Nocturia (principal); R35.0 Frequency of micturition; R39.15 Urgency of urination; R97.20 Elevated prostate specific antigen [PSA]; Z12.5 Encounter for screening for malignant neoplasm of prostate
CPT/HCPCS: 36415; 76770; 84153; 84154

== ENCOUNTER 2023-04-13 14:56 | Outpatient (AMB) | payer MEDICARE, SELFPAY ==
--- NOTE | 2023-04-13 14:56 | MHC.OFFVIS ---
Intake Intake Visit Reasons: follow up/PSA/US Intake Note: Patient presents for follow up visit PSA (psa 5.09)/ultrasound (imaging 03/29) Urology Medications: tadalafil Blood Thinner: none Physician Chief Of Pathology Required: No Accompanied by: Self / Same As Patient Allergies lisinopril Allergy (Unknown, Verified 04/13/23 22:03) anaphalyxis Medication List - Last Reconciled 04/13/23 by LUCY Lela-PAULA acetaminophen (Tylenol) 650 mg PO QID PRN cholecalciferol (vitamin D3) (Vitamin D3) 25 mcg PO DAILY clindamycin phosphate 1% 1 appl topical BEDTIME cyanocobalamin (vitamin B-12) 1,000 mcg PO DAILY hydrochlorothiazide 25 mg PO QAM levofloxacin 500 mg PO daily 3 days metformin 500 mg PO BID 90 days metoprolol succinate ER 100 mg PO DAILY 90 days simvastatin 40 mg PO BEDTIME tadalafil (Cialis) 20 mg PO Q 2 days PRN; HPI HPI Comments History of Present Illness Details Jan is a very pleasant 72-year-old male patient of Dr. Velez. He has a past medical history of ED, high cholesterol, hypertension, obesity, vitamin-D deficiency, and type 2 diabetes. He presents to the office today for follow-up. Of note, patient was seen approximately 1 month ago as a new patient for an elevated PSA at which time recommendations were made for redraw of PSA and retroperitoneal ultrasound for further assessment evaluation. These results reviewed with the patient today. Bilateral kidneys with no calculi, lesions, and or hydronephrosis noted. The bladder is well distended and normal. A simply mildly thick walled and trabeculated urinary bladder is noted. The prostate is mildly enlarged at approximately 40 mL. When asked patient reports to be doing and feeling well. In review of patient's chart it appears PSA's are as follows 01/04--2.1 03/09--4.5 04/08--4.1 % free 12% 03/10--6.1 04/09--5.1 % free 7% When asked patient reports urinary frequency with intermittent episodes of nocturia up to 3 times per night has somewhat improved with 5 mg of Cialis daily. He otherwise denies denies urinary urgency, incontinence, hematuria, dysuria, foul smelling urine, changes to urinary stream, flank pain, fever, and or chills. He is happy with his current voiding parameters. Discussed at length potential causes for elevated PSA. Unable to collect urine for urinalysis as patient was unable to void PVR-0ml's. Previous DIXIE; enlarged; smooth, no masses or nodules palpated. Patient denies any known family history of prostate cancer. Discussed at length surveillance monitoring verses prostate biopsy. Discussed risks and benefits of both interventions. Discussed and stressed the importance of managing diabetes for improvement in urinary symptoms as well as overall health and well-being. [facility] Medical History Erectile dysfunction High cholesterol History of dysphagia Hypertension Obesity (BMI 30-39.9) Type 2 diabetes mellitus with hyperglycemia Vitamin D deficiency Surgical History History of esophagogastroduodenoscopy (EGD) Hx of colonoscopy Hx of tonsillectomy Family History Father Hypertension Mother Uterine cancer Sister In good health Brother No problems noted. Social History Housing: House Alcohol intake: current Alcohol intake frequency: a few times a week Patient Tobacco Use Status: Never used Tobacco e-Cigarette/Vaping Use: Never Used Second Hand Smoke Exposure: Yes service: No Current occupational status: employed and retired Cognitive needs: No Hearing needs: No Vision needs: Yes (Glasses) Review of Systems Const All systems reviewed & are unremarkable except as noted in HPI and below Reports as per HPI Eyes Reports no additional complaints ENT Reports no additional complaints Card Reports as per HPI Resp Reports no additional complaints GI Reports no additional complaints Reports as per HPI Musc Reports no additional complaints Neuro Reports no additional complaints Psych Reports no additional complaints Endo Reports as per HPI Physical Exam Const General: cooperative, healthy appearing, comfortable, no acute distress, well developed, alert and awake Orientation/consciousness: patient oriented x3 Limitations: no limitations HEENT Head: Yes normal to inspection, Yes normocephalic and Yes atraumatic Ears: hearing grossly normal bilaterally Eyes General: appearance normal, both eyes and all related structures Neck Neck: Yes normal visual inspection and Yes trachea midline Chest Chest palpation & inspection: normal inspection of the chest Resp Effort & Inspection: normal respiratory effort and able to speak in complete sentences Cardio Rate: regular rate GI Inspection: Yes normal to inspection General: Yes no CVA tenderness Back/Spine/Pelvis Back: no CVA tenderness Skin General skin exam: no rashes or lesions noted Neuro General: patient oriented x3 Extrem General: Yes normal to inspection Psych Appearance: grossly normal and well kempt Mental Status: mental status grossly normal Speech and movement: Normal speech and movement present and Clear speech present Affect: normal affect Attitude: cooperative Thought process: Normal thought process present Thought content: Normal thought content present Insight: Good insight present (Psych) Judgement: Good judgement present (Psych) Office Procedures Post Void Residual Post Residual Void Post Void Residual (PVR): 0 [id number] Void Residual by ultrasound Results Reviewed Results Reviewed: Date of Service: 03/29/23 EXAMINATION: US RETROPERITONEAL COMPLETE (RENAL) FINDINGS: RIGHT KIDNEY: 9.5 x 4.7 x 5.2 cm (SAG x AP x TRV). The kidney is normal in size, contour, and echogenicity. Renal cortical thickness is normal. No calculi or focal parenchymal lesions. No hydronephrosis. LEFT KIDNEY: 10.4 x 5.7 x 6.2 cm (SAG x AP x TRV). The kidney is normal in size, contour, and echogenicity. Renal cortical thickness is normal. No calculi or focal parenchymal lesions. No hydronephrosis. BLADDER: Well distended and normal. Bilateral ureteral jets are demonstrated. Prevoid bladder volume is 212 mL. Postvoid bladder volume is 90.4 mL. A simply mildly thick-walled and trabeculated urinary bladder. ADDITIONAL FINDINGS: Prostate is enlarged with a volume of 41.2 mL. IMPRESSION: 1.? Small to moderate postvoid bladder residual of 90.4 mL. 2.? Possibly mildly thick-walled and trabeculated urinary bladder. Consider correlation with any symptoms of cystitis or bladder outlet obstruction 3.? Prostate is enlarged with a volume of 41.2 mL. Assessment & Plan Assessment & Plan (1) PSA elevation: Code(s): R97.20 - Elevated prostate specific antigen [PSA] (2) Lower urinary tract symptoms: Code(s): R39.9 - Unspecified symptoms and signs involving the genitourinary system (3) Erectile dysfunction: Code(s): N52.9 - Male erectile dysfunction, unspecified Plan: Plan Risks and benefits regarding trans rectal ultrasound with prostate biopsy were discussed.? Options of continued surveillance, no treatment and biopsy were offered. The risks include but are not limited to, urinary tract infection, sepsis, difficulty urinating, bleeding into the rectum or bladder that requires intervention and transfusion,and failure to diagnose prostate cancer. The patient understands the options and the risks involved. They wish to proceed. Printed information was provided to ensure he remains off anticoagulation for the appropriate length of time. He may require cardiology or PCP clearance.? An antibiotic will be administered prior to, and following the procedure Plan Unable to attain urine for urinalysis today however PVR 0 mL. Discussed recent PSA results; as noted above Discussed recent retroperitoneal ultrasound results; as noted above Discussed prostate biopsy verses surveillance monitoring; discussed risks and benefits of both interventions Discussed prostate biopsy at length; discussed risks and benefits Continue 5 mg of Cialis daily as patient reports somewhat improvement in urinary symptoms Antibiotic prescription sent and discussed to be taken day before, morning of, and day after prostate biopsy All questions were answered Will schedule for prostate biopsy with Dr. Thomson as discussed Follow-up status post biopsy per Dr. Thomson's orders; or sooner with any issues, concerns, and or questions. Orders: Orders AMB Post Void Residual by ultrasound Today R39.15 - Urgency of urination Medications: New levofloxacin take 1 tablet day before procedure, 1 tablet day of procedure and 1 tablet day after procedure 500 mg PO daily 3 days 3 tabs 0RF Patient Instructions: The patient had an opportunity to ask questions regarding the treatment plan. All questions were answered. Physical exam, labs, and imaging were discussed and reviewed in detail. As well as risks, benefits, and discussion of treatment choices. No major barriers to understanding were identified. The patient expressed understanding and agreement with the above treatment plan. The patient was made aware they should contact our office by phone for worsening of their current condition, the appearance of new symptoms, or with any questions or concerns. Compliance is encouraged with any medications and follow up testing that is ordered. It is a privilege to be allowed the opportunity to participate in? your urological care.? Again, if you have any questions or concerns If you have any questions or concerns please do not hesitate to contact me. The office is [phone]. This note is constructed using voice recognition software. While every effort has been made to ensure accuracy powder line repairer errors may have been included. Yours sincerely, LUCY Leal-PAULA Coding Level of Care Code Est Pt Level 4 (07808) Diagnoses PSA elevation R97.20 Lower urinary tract symptoms R39.9 Erectile dysfunction N52.9 CPT Codes Post Residual Void - PVR CPT Code: 79584-[id number] Void Residual by ultrasound ([id number])
== END 2023-04-13 15:47 | disposition home or self-care (01) ==
PROVIDERS: PCP Internal Medicine; Visit Provider Nurse Practitioner Family
DX: R97.20 Elevated prostate specific antigen [PSA] (principal); R39.9 Unspecified symptoms and signs involving the genitourinary system; N52.9 Male erectile dysfunction, unspecified
CPT/HCPCS: 99214

== ENCOUNTER → 2023-04-13 14:56 | Outpatient (BNVA) | payer MEDICARE, SELFPAY | PROVIDERS: PCP Internal Medicine; Visit Provider Nurse Practitioner Family | DX: R39.15 Urgency of urination (principal); R97.20 Elevated prostate specific antigen [PSA]; N52.9 Male erectile dysfunction, unspecified; R35.1 Nocturia; Z79.899 Other long term (current) drug therapy | CPT/HCPCS: 51798; 99212 ==

== ENCOUNTER 2023-04-19 10:57 | Outpatient (AMB) | payer MEDICARE, SELFPAY ==
[2023-04-19 11:13] VITALS: BP 142/88; PULSE 58; O2SAT 99; BMI 26.1
--- NOTE | 2023-04-19 11:13 | A.OFFPC_ITS ---
Vital Signs 04/19/23 11:13 04/19/23 11:56 Height 5 ft 8 in Weight 172 lb BMI 26.1 BP 142/88 H 130/70 Blood Pressure Location Lt brachial Lt brachial Position Sitting Sitting Pulse 58 Pulse Source Pulse Oximeter Pulse Oximetry (%) 99 Oxygen Delivery Method Room Air Intake Visit Reasons: DM, HTN Allergies lisinopril Allergy (Unknown, Verified 04/19/23 11:14) anaphalyxis Tobacco use date assessed: 10/10/22 Fall risk assessment: No Falls in past year Last assessed Fall Risk: 04/19/23 Dental Screening Dental Screen Date: 04/19/23 Did you have a dental visit in the last 12 months?: Yes Did you have a dental problem in the last 6 months where you did not have access to dental care?: No Was dental information given to patient?: Patient has dentist HPI DM, HTN HPI Details 72-year-old overweight male with controlled diabetes mellitus, hypertension hypercholesterolemia last seen in December and requested for blood work patient is here for follow-up up-to-date with colonoscopy. Review of the notes follows up with urology for an elevated prostate number patient also had a frequency prostate is enlarged patient is scheduled for prostate biopsy [facility] Medical History Erectile dysfunction High cholesterol History of dysphagia Hypertension Obesity (BMI 30-39.9) Type 2 diabetes mellitus with hyperglycemia Vitamin D deficiency Surgical History History of esophagogastroduodenoscopy (EGD) Hx of colonoscopy Hx of tonsillectomy Family History Father Hypertension Mother Uterine cancer Sister In good health Brother No problems noted. Social History Housing: House Alcohol intake: current Alcohol intake frequency: a few times a week Patient Tobacco Use Status: Never used Tobacco e-Cigarette/Vaping Use: Never Used Second Hand Smoke Exposure: Yes service: No Current occupational status: employed and retired Cognitive needs: No Hearing needs: No Vision needs: Yes (Glasses) Questionnaire PHQ-9 Over the last 2 weeks, how often have you been bothered by any of the following problems? 1. Little interest or pleasure in doing things: not at all 2. Feeling down, depressed, or hopeless: not at all 3. Trouble falling or staying asleep, or sleeping too much: not at all 4. Feeling tired or having little energy: not at all 5. Poor appetite or overeating: not at all 6. Feeling bad about yourself - or that you are a failure or have let yourself or your family down: not at all 7. Trouble concentrating on things, such as reading the newspaper or watching television: not at all 8. Moving or speaking so slowly that other people could have noticed. Or the opposite - being so fidgety or restless that you have been moving around a lot more than usual: not at all 9. Thoughts that you would be better off or of hurting yourself in some way: not at all Total score: 0 Depression Screening Interpretation: Negative Source: Developed by Drs. Kayden Weir, Nicole Rodriguez, Gokul Biggs and colleagues, with an educational claire from [employer]. Thrive Questionnaire Date Thrive assessed: 10/10/22 AUDIT C Alcohol Use Questionnaire (AUDIT-C) 1. How often do you have a drink containing alcohol?: 2-4 times a month 2. How many drinks containing alcohol do you have on a typical day when you are drinking?: 1 or 2 Total Score: 2 MATT-7 AMB Questionnaire MATT-7 Date MATT - 7 assessed: 10/10/22 Source: Developed by Drs. Kayden Weir, Nicole Rodriguez, Gokul Biggs and colleagues, with an educational claire from [employer]. Physical exam (Primary Care) Vital Signs: Last Vital Signs Pulse 58 04/19/23 11:13 BP 142/88 H 04/19/23 11:13 Pulse Ox 99 04/19/23 11:13 Oxygen Delivery Method Room Air 04/19/23 11:13 BMI result Body Mass Index 26.1 Tobacco/Smoking Status: Tobacco use Status Tobacco use date assessed 10/10/22 04/19/23 11:17 Patient Tobacco Use Status Never used Tobacco 04/19/23 11:17 e-Cigarette/Vaping Use Never Used 04/19/23 11:17 PHQ-9: PHQ-9 Score PHQ-9: Total score 0 04/19/23 11:17 Depression Screening Interpretation: Negative Thrive Assessment: Date of Thrive Assessment Date Thrive assessed 10/10/22 04/19/23 11:17 Const General: alert; No acute distress Eyes Conjunctivae: conjunctivae normal Resp Auscultation: clear to auscultation bilaterally Cardio Rate: regular rate Rhythm: regular rhythm GI Inspection: Yes normal to inspection Extrem General: Yes normal to inspection and No edema Assessment and Plan Assessment & Plan (1) Type 2 diabetes mellitus with hyperglycemia: Comment: Dr. Coon 07/04/2022 Code(s): E11.65 - Type 2 diabetes mellitus with hyperglycemia Qualifiers: Diabetes mellitus longterm insulin use: without buttermaker continuous churn use Qualified Code(s): E11.65 - Type 2 diabetes mellitus with hyperglycemia Plan: Decrease the amount of carbohydrate intake, pasta, bread, rice and potatoes are all sugar and that is aside from all the sweet stuff, remember that fruits are good but they are Sweet also. Hemoglobin A1c goal of less than 7.0 (2) Hypertension: Code(s): I10 - Essential (primary) hypertension Qualifiers: Hypertension type: essential hypertension Qualified Code(s): I10 - Essential (primary) hypertension Plan: Continue with blood pressure medication. Decrease salt intake and exercise patient is on metoprolol 100 mg once a day (3) High cholesterol: Code(s): E78.00 - Pure hypercholesterolemia, unspecified Plan: Avoid fried foods, chicken skin, eggs, butter margarine, pastries and meat. Be it pork or beef they have a lot of cholesterol LDL goal of less than 100 patient is on simvastatin 40 mg once a day (4) PSA elevation: Code(s): R97.20 - Elevated prostate specific antigen [PSA] Plan: Prostate biopsy plan by urology (5) Prostate enlargement: Code(s): N40.0 - Benign prostatic hyperplasia without lower urinary tract symptoms Plan: Patient follows up with urology Coding Level of Care Code Est Pt Level 4 (93438) Diagnoses Type 2 diabetes mellitus with hyperglycemia E11.65 Diabetes mellitus buttermaker continuous churn insulin use: without longterm use Hypertension I10 Hypertension type: essential hypertension High cholesterol E78.00 PSA elevation R97.20 Prostate enlargement N40.0
[2023-04-19 11:56] VITALS: BP 130/70
== END 2023-04-19 12:04 | disposition home or self-care (01) ==
PROVIDERS: PCP Internal Medicine; Visit Provider Internal Medicine
DX: E11.65 Type 2 diabetes mellitus with hyperglycemia (principal); I10 Essential (primary) hypertension; E78.00 Pure hypercholesterolemia, unspecified; R97.20 Elevated prostate specific antigen [PSA]; N40.0 Benign prostatic hyperplasia without lower urinary tract symptoms
CPT/HCPCS: 99214

== ENCOUNTER 2023-05-18 07:22 | Outpatient (REF) | payer MEDICARE, SELFPAY ==
[2023-05-18 07:09] VITALS: BP 162/83; PULSE 56; TEMP 36; O2SAT 100
--- NOTE | 2023-05-18 08:19 | W.PM.OPN ---
Operative Note Operative Note Date of Service: 05/18/23 Narrative: Preoperative diagnosis: Elevated PSA Postoperative diagnosis: Elevated PSA Procedure: 1. transrectal ultrasound measurement of prostate 2. transrectal ultrasound-guided pudendal nerve block 3. transrectal ultrasound-guided prostate biopsy 12 core Surgeon: Dr. Costa Thomson Anesthetic: Local Indications for procedure: Elevated PSA 4.6 7% Procedure: After informed consent was verified, the patient was brought into the procedure area and lay left-hand side down on the table. Patient identity confirmed. Perioperative antibiotics confirmed. Safety pause time out performed. DIXIE performed to dilate rectal sphincter Iodine 10cc with Gel was placed per rectum Ultrasound probe was placed per rectum The prostate was measured in 3 dimensions Total volume equals 40 gm No cystic structures were noted Yes calcifications were noted at the surgical margin The prostate was otherwise heterogenous in nature An ultrasound-guided pudendal nerve block was performed using 10 cc of 1% lidocaine. 8 cc was placed at the base and 2 cc of the apex. A 12 core biopsy was performed with 6 cores each side. Two cores were taken at the apex, mid and base. Cores were spaced between lateral and medial. He tolerated the procedure well. Was able to ambulate to bathroom after 5 minutes. Printed instructions regarding antibiotic use and common side effects such as low-grade temperature, potential infection and bleeding were given Pathology: 12 core prostate biopsy.
[2023-05-18 08:47] VITALS: BP 171/94; PULSE 55; RESP 16; TEMP 35.6; O2SAT 100
== END 2023-05-18 07:23 | disposition home or self-care (01) ==
LOC: HO.MS 07:22
PROVIDERS: PCP Internal Medicine; Visit Provider Urology
PROC: (CPT 55700; principal; 2023-05-18 08:00)
DX: C61 Malignant neoplasm of prostate (principal); R97.20 Elevated prostate specific antigen [PSA]
CPT/HCPCS: 55700; 76942; 88305; 88344

== ENCOUNTER → 2023-05-18 07:22 | Outpatient (BNV) | payer MEDICARE, SELFPAY | PROVIDERS: PCP Internal Medicine; Visit Provider Urology | DX: R97.20 Elevated prostate specific antigen [PSA] (principal) | CPT/HCPCS: 55700; 76942 ==

== ENCOUNTER 2023-05-27 21:58 | Emergency (ER) | payer MEDICARE, SELFPAY ==
[2023-05-27 23:01] VITALS: BP 140/72; PULSE 61; RESP 18; TEMP 36.5; O2SAT 100; BMI 25.5
--- NOTE | 2023-05-28 00:48 | ED.GENADULT ---
HPI - General Adult General Chief complaint: General Medical Stated complaint: hiccups Time Seen by Provider: 05/28/23 00:34 Source: patient, family and old records reviewed Mode of arrival: ambulatory Limitations: no limitations History of Present Illness HPI narrative: 72 yo male with PMH of BPH, HLD, HTN, Type 2 DM, intractable hiccups here with c/o 3 days of hiccups hx of same in past he's not sure of triggers. He has had it for 3 days. He vomited x 1. He reports he has responded to liquid in past . This is a typical flair for him. MD complaint: hiccups Onset (ago): day(s) (3) Location: abdomen Radiation: non-radiation Severity: moderate Relieving factors: none Exacerbating factors: eating Associated symptoms: nausea/vomiting (one time vomiting) Treatments prior to arrival: other (tries home remedies that don't work) Related Data Home Medications Medication Instructions Recorded Confirmed acetaminophen 325 mg tablet 650 mg PO QID PRN Pain 07/23/20 10/19/21 (Tylenol) cholecalciferol (vitamin D3) 25 25 mcg PO DAILY 07/23/20 10/19/21 mcg (1,000 unit) capsule (Vitamin D3) Previous Rx's Medication Instructions Recorded clindamycin phosphate 1 % lotion 1 appl topical BEDTIME #60 mL 10/09/20 tadalafil 20 mg tablet (Cialis) 20 mg PO .COMPLEX PRN sexual 10/09/20 activity #10 tabs hydrochlorothiazide 25 mg tablet 25 mg PO QAM #90 tabs 06/09/22 simvastatin 40 mg tablet 40 mg PO BEDTIME #90 tabs 09/08/22 metformin 500 mg tablet 500 mg PO BID 90 days #180 tabs 11/04/22 cyanocobalamin (vitamin B-12) 1,000 mcg PO DAILY #90 tabs 02/28/23 1,000 mcg tablet metoprolol succinate 100 mg 100 mg PO DAILY 90 days #90 tabs 02/28/23 tablet,extended release 24 hr levofloxacin 500 mg tablet 500 mg PO daily 3 days #3 tabs 04/13/23 Allergies Allergy/AdvReac Type Severity Reaction Status Date / Time lisinopril Allergy Unknown anaphalyxis Verified 04/19/23 11:14 Review of Systems Review of Systems: Constitutional : No Fever, No Chills, pos hiccups ENT/Mouth : No sore throat, No Rhinorrhea Eyes: No Eye Pain, No Swelling, No Redness Cardiovascular : No Chest Pain, No SOB Respiratory : No Cough, No Sputum Gastrointestinal : No Nausea, pos Vomiting, No Diarrhea, No abdominal Pain Genitourinary : No Dysuria, No Hematuria Musculoskeletal : No joint pain, No Myalgias, No Joint Swelling Skin : No Skin Lesions, no skin rash Neuro : No Weakness, No Numbness, No Headache Psych : No Anxiety, No Depression Heme/Lymph: No Bruising, No Bleeding,No Lymphadenopathy Endocrine : No Polyuria, No Polydipsia All other systems reviewed and are negative [facility] Past Medical History Source: old records reviewed Medical History Obesity (BMI 30-39.9) Vitamin D deficiency Erectile dysfunction Type 2 diabetes mellitus with hyperglycemia History of dysphagia High cholesterol Hypertension Surgical History Hx of tonsillectomy History of esophagogastroduodenoscopy (EGD) Hx of colonoscopy Family History Family History Father Hypertension Mother Uterine cancer Sister In good health Brother No problems noted. Social History Social History Housing: House Alcohol intake: current Alcohol intake frequency: a few times a week Patient Tobacco Use Status: Never used Tobacco e-Cigarette/Vaping Use: Never Used Second Hand Smoke Exposure: Yes Advance Directives: No Advance Directives Information Provided: No service: No Current occupational status: employed and retired Cognitive needs: No Hearing needs: No Vision needs: Yes (Glasses) Physical Exam ED Vital Signs: Vital Signs - 24 hr 05/27/23 23:01 05/28/23 01:24 Temperature 97.7 F Pulse Rate 61 77 Respiratory Rate 18 18 Blood Pressure 140/72 H 137/73 Pulse Oximetry 100 100 Oxygen Delivery Method Room Air BMI result Body Mass Index 25.5 Appearance: Alert. Oriented X3. No acute distress. hiccups Eyes: Pupils equal, round and reactive to light. ENT: Pharynx normal. Neck: Normal inspection. Neck supple. CVS: Normal heart rate and rhythm. Pulses normal. Respiratory: No respiratory distress. Breath sounds normal. Abdomen: Soft and nontender. Skin: Skin warm and dry. Normal skin color. Normal skin turgor. Extremities: No lower extremity edema. No calf ttp Neuro: Oriented X 3. No motor deficit. No sensory deficit. Course Course Course Narrative: still having hiccups will try baclofen Reevaluation(s) Reevaluation #1: signed out to Dr. Hooper Medications Administered Discontinued Medications Generic Name Dose Route Start Last Admin Trade Name Racquel PRN Reason Stop Dose Admin Lidocaine HCl 15 ml 05/28/23 00:43 05/28/23 01:35 Lidocaine Hcl Viscous 2 % 15 Ml Solution MUCOUS MEM 05/28/23 00:44 15 ml ONCE ONE Administration Omeprazole 40 mg 05/28/23 00:43 05/28/23 01:35 Omeprazole 40 Mg Capsule. PO 05/28/23 00:44 40 mg ONCE ONE Administration Ondansetron HCl 4 mg 05/28/23 00:43 05/28/23 01:23 Ondansetron Odt 4 Mg Tab.Rapdis TRANSLINGU 05/28/23 00:44 4 mg ONCE ONE Administration Prochlorperazine Maleate 10 mg 05/28/23 00:43 05/28/23 01:56 Prochlorperazine Maleate 5 Mg Tablet PO 05/28/23 00:44 10 mg ONCE ONE Administration Medical Decision Making Medical Decision Making MDM Narrative: 72 yo male with PMH of BPH, HLD, HTN, Type 2 DM, intractable hiccups here with c/o 3 days of symptoms at this time he only vomited once he has stable VS he is able to eat this has happened to him many times he has no CP/SOB no abdominal pain will need medications and reassessments. No concern for dehydration. Differential Diagnosis Differential Diagnoses: The differential diagnosis associated with the presentation includes hiccups Admission/Observation Consideration of admission/observation: Escalation of care including admission/observation considered observe until hiccups gone. will need different medications Independent Historian Clinical information obtained from an independent historian. History obtained from or confirmed by: Spouse External Record Review External record reviewed: Inpatient record Tests considered The following testing was considered but not selected: labs - but only vomited x 1 and tolerating PO doubt dehydration Prescription Management I considered prescription management with: Other Discharge Plan Discharge Clinical Impression: Hiccups Patient Disposition: Still a Patient Instructions: Hiccups (ED) Additional Instructions: return for vomiting, pain, fevers, shortness of breath. the medications we gave you can make you dizzy please do not drive or drink alcohol. stay with responsible adult. follow up with your doctor this week. Prescriptions: No Action simvastatin 40 mg tablet 40 mg PO BEDTIME Qty: 90 2RF metformin 500 mg tablet 500 mg PO BID 90 Days Qty: 180 2RF cyanocobalamin (vitamin B-12) 1,000 mcg tablet 1,000 mcg PO DAILY Qty: 90 2RF metoprolol succinate 100 mg tablet extended release 24 hr 100 mg PO DAILY 90 Days Qty: 90 2RF acetaminophen [Tylenol] 325 mg Tablet 650 mg PO QID PRN (Reason: Pain) cholecalciferol (vitamin D3) [Vitamin D3] 25 mcg (1,000 unit) Capsule 25 mcg PO DAILY clindamycin phosphate 1 % lotion 1 appl topical BEDTIME Qty: 60 0RF tadalafil [Cialis] 20 mg tablet 20 mg PO .COMPLEX PRN (Reason: sexual activity) Qty: 10 4RF Rx Instructions: 20 mg PO Q 2 days PRN; hydrochlorothiazide 25 mg tablet 25 mg PO QAM Qty: 90 2RF levofloxacin 500 mg tablet 500 mg PO daily 3 Days Qty: 3 0RF Rx Instructions: take 1 tablet day before procedure, 1 tablet day of procedure and 1 tablet day after procedure
[2023-05-28] MEDS: Ondansetron ODT 4 MG TAB.RAPDIS TRANSLINGU (01:23)
[2023-05-28 01:24] VITALS: BP 137/73; PULSE 77; RESP 18; O2SAT 100
[2023-05-28] MEDS: Lidocaine HCl Viscous 2 % 15 ML SOLUTION MUCOUS MEM (01:35)
[2023-05-28] MEDS: Omeprazole 40 MG CAPSULE.DR PO (01:35)
[2023-05-28] MEDS: Prochlorperazine Maleate 5 MG TABLET 10 MG PO (01:56)
--- NOTE | 2023-05-28 02:54 | PC.NURSE ---
This RN went to [facility] to new room and patient declined stating he felt better and wanted to go home. made aware.
[2023-05-28] MEDS: Baclofen 10 MG TABLET PO (03:00)
== END 2023-05-28 03:13 | disposition home or self-care (01) ==
PROVIDERS: Emergency Provider Emergency Medicine; PCP Internal Medicine
DX: R06.6 Hiccough (principal); I10 Essential (primary) hypertension; E11.9 Type 2 diabetes mellitus without complications; Z79.899 Other long term (current) drug therapy
CPT/HCPCS: 99282

== ENCOUNTER 2023-06-01 11:05 | Outpatient (AMB) | payer MEDICARE, SELFPAY ==
--- NOTE | 2023-06-01 11:25 | A.OFFVIS_ITS ---
Intake Intake Visit Reasons: bx results Intake Note: Patient is present for Follow Up Urology Med: tadalafil Antibiotic Allergy: Blood Thinner: acetaminophen Pharmacy: [facility] Allergies lisinopril Allergy (Unknown, Verified 06/01/23 11:27) anaphalyxis HPI HPI Comments History of Present Illness Details Jan is a very pleasant 72-year-old male patient of Dr. Velez. He has a past medical history of ED, high cholesterol, hypertension, obesity, vitamin-D deficiency, and type 2 diabetes. He presents to the office today for follow-up. Of note, Jan is a pleasant male. He is a patient of Dr. Velez. He seen for the following urologic conditions - elevated PSA - prostate cancer Here for prostate biopsy follow-up Diagnosed with low volume, intermediate risk, clinically localized prostate cancer Plan prostate MRI Good candidate for targeted cryotherapy Risks and benefits discussed with patient Prostate cancer - 05/10 low volume, intermediate risk, clinically localized PSA at diagnosis 5.1, free% 7 Prostate volume 40 g All cores positive left side Histologic type: Acinar adenocarcinoma Histologic grade: [place] score: 3+3=6 (F), 3+4=7 (B,D) % of pattern 4: 20% % of pattern 5: N/A Tumor quantitation: Number cores positive: 3 % of tissue involved: 6% of all tissue Periprostatic fat inv.: Not identified Seminal vesicle inv.: Not identified Perineural inv.: Not identified LVI: Not identified Has been using 5 mg Cialis daily for prostate symptoms PFSH Medical History Obesity (BMI 30-39.9) Vitamin D deficiency Erectile dysfunction Type 2 diabetes mellitus with hyperglycemia History of dysphagia High cholesterol Hypertension Surgical History Hx of tonsillectomy History of esophagogastroduodenoscopy (EGD) Hx of colonoscopy Family History Father Hypertension Mother Uterine cancer Sister In good health Brother No problems noted. Social History Housing: House Alcohol intake: current Alcohol intake frequency: a few times a week Patient Tobacco Use Status: Never used Tobacco e-Cigarette/Vaping Use: Never Used Second Hand Smoke Exposure: Yes service: No Current occupational status: employed and retired Cognitive needs: No Hearing needs: No Vision needs: Yes (Glasses) Review of Systems Const Denies chills and Denies fever(s) Card Reports no additional complaints and Denies syncope Resp Denies cough GI Denies abdominal pain and Denies heartburn Reports as per HPI and Denies change in libido Neuro Denies syncope Psych Denies change in libido Endo Denies change in libido Physical Exam Const General: cooperative, healthy appearing, comfortable and no acute distress Orientation/consciousness: patient oriented x3 HEENT Face and sinus: Yes normal facial exam Mouth: moist mucous membranes Neck Neck: Yes normal visual inspection, Yes full ROM and Yes trachea midline Chest Chest palpation & inspection: normal inspection of the chest Resp Effort & Inspection: normal respiratory effort, able to speak in complete sentences and no respiratory distress GI Inspection: Yes normal to inspection Back/Spine/Pelvis Cervical Spine: normal cervical lordosis Thoracic/Lumbar Spine: thoracic and lumbar spine normal to inspection Skin General skin exam: no rashes or lesions noted Neuro General: patient oriented x3, gait normal, tone normal and moves all extremities Extrem General: Yes normal to inspection and Yes capillary refill normal Assessment & Plan Assessment & Plan (1) Prostate cancer: Code(s): C61 - Malignant neoplasm of prostate Plan Staging assessment for cryotherapy Orders: Orders MR pelvis wo/w con 4 Weeks C61 - Malignant neoplasm of prostate Blood Urea Nitrogen Today C61 - Malignant neoplasm of prostate, R39.15 - Urgency of urination Creatinine Today C61 - Malignant neoplasm of prostate, R39.15 - Urgency of urination Patient Instructions: Imaging studies, laboratory and physical exam results were discussed and reviewed in detail. No major barriers to patient understanding were identified. An opportunity to ask questions regarding the treatment plan was provided. All questions were answered. The patient expressed understanding and agreement with the above treatment plan. The patient is aware they should contact our office by phone for worsening of their current condition or the appearance of new urologic symptoms. Compliance is encouraged with any medications and followup testing that is ordered. It is a privilege to participate in the urologic care of your patient. If you have any questions or concerns regarding treatment for the above conditions, or other urologic issues, please do not hesitate to contact me. The office telep karlo contact is [phone]. This note is constructed using voice recognition software. While every effort has been made to ensure accuracy product merchandiser errors may have been included. Yours sincerely, Dr Costa Thomson MD, RONNY [facility] - Urology Providers of Expert, Compassionate Care for the Genitourinary System Coding Level of Care Code Est Pt Level 4 (07118) Diagnoses Prostate cancer C61
== END 2023-06-01 11:51 | disposition home or self-care (01) ==
PROVIDERS: PCP Internal Medicine; Visit Provider Urology
DX: C61 Malignant neoplasm of prostate (principal); R97.20 Elevated prostate specific antigen [PSA]
CPT/HCPCS: 99214

== ENCOUNTER → 2023-06-01 11:05 | Outpatient (BNVA) | payer MEDICARE, SELFPAY | PROVIDERS: PCP Internal Medicine; Visit Provider Urology | DX: C61 Malignant neoplasm of prostate (principal) | CPT/HCPCS: 99212 ==

== ENCOUNTER 2023-07-07 09:14 | Outpatient (AMB) | payer MEDICARE, SELFPAY ==
--- NOTE | 2023-07-07 09:17 | A.OFFVIS_ITS ---
Intake Intake Visit Reasons: 5w/MRI(set) Intake Note: Patient is Present for Follow Up MRI/PVR Urology Medication: Tadalafil Antibiotic Allergies:None None Blood Thinners: None Pharmacy: [facility] PVR: 0ml Allergies lisinopril Allergy (Unknown, Verified 07/07/23 09:18) anaphalyxis HPI HPI Comments History of Present Illness Details Jan is a very pleasant 72-year-old male patient of Dr. Velez. He has a past medical history of ED, high cholesterol, hypertension, obesity, vitamin-D deficiency, and type 2 diabetes. He presents to the office today for follow-up. Of note, Jan is a pleasant male. He is a patient of Dr. Velez. He seen for the following urologic conditions - elevated PSA - prostate cancer Prostate MRI - confirms left base single legion Given age, imaging, pathology would be good candidate for targeted cryotherapy Risks, benefits and alternatives to therapy were discussed. These include but are not limited to infection, bleeding, damage to local organs and tissues, need for further interventions. Anesthetic risks regarding cardiac arrhythmia, blood clots, and potential mortality were discussed. The patient understands the typical recovery time and the outpatient nature of the procedure. After consideration of these risks the patient gives full informed consent and they wish to move ahead with the procedure. Will start finasteride Plan for targeted cryotherapy in September Prostate cancer - 05/10 low volume, intermediate risk, clinically localized PSA at diagnosis 5.1, free% 7 Prostate volume 40 g All cores positive left side Histologic type: Acinar adenocarcinoma Histologic grade: Ricardo score: 3+3=6 (F), 3+4=7 (B,D) % of pattern 4: 20% % of pattern 5: N/A Tumor quantitation: Number cores positive: 3 % of tissue involved: 6% of all tissue Periprostatic fat inv.: Not identified Seminal vesicle inv.: Not identified Perineural inv.: Not identified LVI: Not identified Has been using 5 mg Cialis daily for prostate symptoms PFSH Medical History Obesity (BMI 30-39.9) Vitamin D deficiency Erectile dysfunction Type 2 diabetes mellitus with hyperglycemia History of dysphagia High cholesterol Hypertension Surgical History Hx of tonsillectomy History of esophagogastroduodenoscopy (EGD) Hx of colonoscopy Family History Father Hypertension Mother Uterine cancer Sister In good health Brother No problems noted. Social History Housing: House Alcohol intake: current Alcohol intake frequency: a few times a week Patient Tobacco Use Status: Never used Tobacco e-Cigarette/Vaping Use: Never Used Second Hand Smoke Exposure: Yes service: No Current occupational status: employed and retired Cognitive needs: No Hearing needs: No Vision needs: Yes (Glasses) Review of Systems Const Denies chills and Denies fever(s) Card Reports no additional complaints and Denies syncope Resp Denies cough GI Denies abdominal pain and Denies heartburn Reports as per HPI and Denies change in libido Neuro Denies syncope Psych Denies change in libido Endo Denies change in libido Physical Exam Const General: cooperative, healthy appearing, comfortable and no acute distress Orientation/consciousness: patient oriented x3 HEENT Face and sinus: Yes normal facial exam Mouth: moist mucous membranes Neck Neck: Yes normal visual inspection, Yes full ROM and Yes trachea midline Chest Chest palpation & inspection: normal inspection of the chest Resp Effort & Inspection: normal respiratory effort, able to speak in complete sentences and no respiratory distress GI Inspection: Yes normal to inspection Back/Spine/Pelvis Cervical Spine: normal cervical lordosis Thoracic/Lumbar Spine: thoracic and lumbar spine normal to inspection Skin General skin exam: no rashes or lesions noted Neuro General: patient oriented x3, gait normal, tone normal and moves all extremities Extrem General: Yes normal to inspection and Yes capillary refill normal Office Procedures Post Void Residual Post Residual Void Post Void Residual (PVR): 0 [id number] Void Residual by ultrasound Assessment & Plan Assessment & Plan (1) Prostate cancer: Code(s): C61 - Malignant neoplasm of prostate Plan Targeted prostate cryotherapy Prostate Cancer Therapy Discussion today focused on treatment options for prostate cancer. The patient has already reviewed educational materials that had been provided to him in printed form. The NCCN criteria for imaging, molecular testing and germ line testing were discussed. The discussion was then focused on therapeutic options which include 1) Deferred therapy/active surveillance. Recommended in the setting of low volume, very low risk and low risk disease. Criteria include 3 cores all less, same side, no core greater than 50% disease. Evaluation may be augmented with imaging such as pelvic MRI and genetic evaluation of biopsy material. Somatic tissue genetic testing such as Prolaris, which focuses on tumor-specific pathogenic variants that may identify an indication for further germline testing and can guide therapeutic decisions in the setting of low risk disease. - The patient is not a candidate for active surveillance. 2) Targeted Cryotherapy Ablation. The technique of cryotherapy was described. PSA free progression rates were discussed. Suitable candidates in general have low volume grade group 1 or grade group 2 disease. Typically pelvic MRI with targeted mapping biopsies are required for treatment planning. - The patient is a candidate for image guided targeted cryotherapy ablation. 3) Robotic Prostatectomy. Salient features of the patient's PSA, [place] score and disease stage were applied to the [facility] nomogram. Relevant rates of extracapsular extension, seminal vesicle involvement yumiko involvement with discussed. Pathologic up staging and down staging on final specimen was discussed. Salient features of the procedure, hospitalization and recovery were discussed. - The patient is not a candidate for robotic prostatectomy.. 4) Radiation therapy was described. IMRT, hyperfractionated therapy, permanent seed implant with all without concomitant androgen deprivation therapy and rectal protection were discussed. There is a small separation regarding cancer control between radiation and prostatectomy at approximately 15 years. There is an evolving preference for hyper fractionated therapy. This gives the same radiation total dose in a reduced number of individual treatment sessions. This approach is associated with higher risks of rectal bleeding. To ameliorate these risks injection of a spacer gel posterior to the prostate has been advocated. This is only indicated in patients without evidence of extracapsular extension posteriorly, and should be considered with caution where disease is primary grade 4. Brachytherapy was described in detail. Typically this is a same day procedure. Therapy is typically well tolerated and gives good control for low-risk prostate cancer and cancer that does not involve neurovascular invasion. Different risks were described for each therapeutic option. Ranges from the published literature were discussed. Consequent morbidity and treatment to address complications were discussed. These include - robotic prostatectomy - Typically patients are in hospital for one day and miss 4 weeks of work. The importance of preoperative walking and Kegel exercises was stressed. Complications, including but not limited to; acute complications regarding blood loss, transfusion, DVT, ileus, wound infection and potential mortality. Long-term complications such as impotence, UTI, urethral stricture, bladder neck contracture, incontinence. Penile shrinkage and chronic pain were discussed and reviewed. - radiation - IMRT typically this takes 25-40 daily treatments administered on a Monday through Monday sequence. Treatment is normally well tolerated. associated side effects include urge, frequency, dysuria, hematuria, loose bowels and fatigue, particularly toward the end of therapy. These can be ameliorated to some degree with medication. Long-term risks regarding impotence and a small risk of chronic urinary urge and incontinence were discussed - brachytherapy General anesthesia is used. Radioactive seeds are placed. There may be a required planning visit. Risks regarding anesthesia with DVT, PE, infection, urinary retention, urgency, and frequency were discussed. Long-term risks include bladder neck contraction, impotence, urge, potential for secondary cancer of the bladder base The patient has Grade Group 2 pT 1 prostate cancer disease Orders: Orders AMB Urinalysis Automated Today Z13.9 - Encounter for screening, unspecified AMB Post Void Residual by ultrasound Today R39.9 - Unspecified symptoms and signs involving the genitourinary system Patient Instructions: Imaging studies, laboratory and physical exam results were discussed and reviewed in detail. No major barriers to patient understanding were identified. An opportunity to ask questions regarding the treatment plan was provided. All questions were answered. The patient expressed understanding and agreement with the above treatment plan. The patient is aware they should contact our office by phone for worsening of their current condition or the appearance of new urologic symptoms. Compliance is encouraged with any medications and followup testing that is ordered. It is a privilege to participate in the urologic care of your patient. If you have any questions or concerns regarding treatment for the above conditions, or other urologic issues, please do not hesitate to contact me. The office telephone contact is [phone]. This note is constructed using voice recognition software. While every effort has been made to ensure accuracy bowling alley floors installer errors may have been included. Yours sincerely, Dr Costa Thomson MD, RONNY [facility] - Urology Providers of Expert, Compassionate Care for the Genitourinary System Coding Level of Care Code Est Pt Level 4 (26256) Diagnoses Prostate cancer C61 CPT Codes Post Residual Void - PVR CPT Code: 83380-Chvo Void Residual by ultrasound ([id number])
== END 2023-07-07 10:48 | disposition home or self-care (01) ==
PROVIDERS: PCP Internal Medicine; Visit Provider Urology
DX: C61 Malignant neoplasm of prostate (principal)
CPT/HCPCS: 99214

== ENCOUNTER → 2023-07-07 09:14 | Outpatient (BNVA) | payer MEDICARE, SELFPAY | PROVIDERS: PCP Internal Medicine; Visit Provider Urology | DX: C61 Malignant neoplasm of prostate (principal); R97.20 Elevated prostate specific antigen [PSA]; R39.9 Unspecified symptoms and signs involving the genitourinary system; N52.9 Male erectile dysfunction, unspecified | CPT/HCPCS: 51798; 99212 ==

== ENCOUNTER 2023-07-25 09:27 | Outpatient (AMB) | payer MEDICARE, SELFPAY ==
[2023-07-25 09:34] VITALS: BP 130/76; PULSE 63; O2SAT 100; BMI 26.1
--- NOTE | 2023-07-25 09:34 | MHC.PC.OV ---
Vital Signs 07/25/23 09:34 Height 5 ft 8 in Weight 172 lb BMI 26.1 BP 130/76 Blood Pressure Location Lt brachial Position Sitting Pulse 63 Pulse Source Pulse Oximeter Pulse Oximetry (%) 100 Oxygen Delivery Method Room Air Intake Visit Reasons: 3mon f/u Allergies lisinopril Allergy (Unknown, Verified 07/25/23 09:34) anaphalyxis Tobacco use date assessed: 10/10/22 Fall risk assessment: No Falls in past year Last assessed Fall Risk: 07/25/23 Dental Screening Dental Screen Date: 07/25/23 Did you have a dental visit in the last 12 months?: No Did you have a dental problem in the last 6 months where you did not have access to dental care?: No Was dental information given to patient?: Patient has dentist HPI 3mon f/u HPI Details 72-year-old male with controlled diabetes mellitus hypertension hypercholesterolemia prostate cancer coming in for follow-up April last seen patient's colonoscopy is up-to-date. Patient follows up with urology June 2023 prostate MRI showing left base single lesion planned targeted cryotherapy started on finasteride. crotherapy 09/2022. eye exam 09/2022 otherwise no other complaints no nausea no vomiting no chest pains no shortness of breath no bowel symptoms. s. [facility] Medical History Obesity (BMI 30-39.9) Vitamin D deficiency Erectile dysfunction Type 2 diabetes mellitus with hyperglycemia History of dysphagia High cholesterol Hypertension Surgical History Hx of tonsillectomy History of esophagogastroduodenoscopy (EGD) Hx of colonoscopy Family History Father Hypertension Mother Uterine cancer Sister In good health Brother No problems noted. Social History Housing: House Alcohol intake: current Alcohol intake frequency: a few times a week Patient Tobacco Use Status: Never used Tobacco e-Cigarette/Vaping Use: Never Used Second Hand Smoke Exposure: Yes service: No Current occupational status: employed and retired Cognitive needs: No Hearing needs: No Vision needs: Yes (Glasses) Questionnaire PHQ-9 Over the last 2 weeks, how often have you been bothered by any of the following problems? 1. Little interest or pleasure in doing things: not at all 2. Feeling down, depressed, or hopeless: not at all 3. Trouble falling or staying asleep, or sleeping too much: not at all 4. Feeling tired or having little energy: not at all 5. Poor appetite or overeating: not at all 6. Feeling bad about yourself - or that you are a failure or have let yourself or your family down: not at all 7. Trouble concentrating on things, such as reading the newspaper or watching television: not at all 8. Moving or speaking so slowly that other people could have noticed. Or the opposite - being so fidgety or restless that you have been moving around a lot more than usual: not at all 9. Thoughts that you would be better off or of hurting yourself in some way: not at all Total score: 0 Depression Screening Interpretation: Negative Depression Screening Done: Yes Source: Developed by Drs. Kayden Weir, Nicole Rodriguez, Gokul Biggs and colleagues, with an educational claire from [employer]. Thrive Questionnaire Date Thrive assessed: 10/10/22 AUDIT C Alcohol Use Questionnaire (AUDIT-C) 1. How often do you have a drink containing alcohol?: 2-4 times a month 2. How many drinks containing alcohol do you have on a typical day when you are drinking?: 1 or 2 Total Score: 2 MATT-7 AMB Questionnaire MATT-7 Date MATT - 7 assessed: 10/10/22 Source: Developed by Drs. Kayden Weir, Nicole Rodriguez, Gokul Biggs and colleagues, with an educational claire from [employer]. Physical exam (Primary Care) Vital Signs: Last Vital Signs Pulse 63 07/25/23 09:34 BP 130/76 07/25/23 09:34 Pulse Ox 100 07/25/23 09:34 Oxygen Delivery Method Room Air 07/25/23 09:34 BMI result Body Mass Index 26.1 Tobacco/Smoking Status: Tobacco use Status Tobacco use date assessed 10/10/22 07/25/23 09:35 Patient Tobacco Use Status Never used Tobacco 07/25/23 09:35 e-Cigarette/Vaping Use Never Used 07/25/23 09:35 PHQ-9: PHQ-9 Score PHQ-9: Total score 0 07/25/23 09:58 Depression Screening Interpretation: Negative Thrive Assessment: Date of Thrive Assessment Date Thrive assessed 10/10/22 07/25/23 09:35 Const General: alert; No acute distress Eyes Conjunctivae: conjunctivae normal Resp Auscultation: clear to auscultation bilaterally Cardio Rate: regular rate Rhythm: regular rhythm GI Inspection: Yes normal to inspection Extrem General: Yes normal to inspection and No edema Results AMB Hemoglobin A1c AMB Hemoglobin A1c 6.0 % Last Edit by Hilda Alvarez CMA on 07/25/23 09:49 Results Reviewed Results Reviewed: Laboratory Last Values Hgb A1c (Clinic) 6.0 % (4.0-6.0) 07/25/23 09:35 Assessment and Plan Assessment & Plan (1) Type 2 diabetes mellitus with hyperglycemia: Comment: Dr. Coon 07/04/2022 Code(s): E11.65 - Type 2 diabetes mellitus with hyperglycemia Qualifiers: Diabetes mellitus terminal operations manager insulin use: without terminal operations manager use Qualified Code(s): E11.65 - Type 2 diabetes mellitus with hyperglycemia Plan: Decrease the amount of carbohydrate intake, pasta, bread, rice and potatoes are all sugar and that is aside from all the sweet stuff, remember that fruits are good but they are Sweet also. Hemoglobin A1c goal of less than 7.0. Patient on metformin 500 mg twice a day (2) Hypertension: Code(s): I10 - Essential (primary) hypertension Qualifiers: Hypertension type: essential hypertension Qualified Code(s): I10 - Essential (primary) hypertension Plan: Continue with blood pressure medication. Decrease salt intake and exercise patient is taking metoprolol 100 mg once a day hydrochlorothiazide 25 mg once a day patient had angioedema from lisinopril (3) High cholesterol: Code(s): E78.00 - Pure hypercholesterolemia, unspecified Plan: Hypercholesterolemia LDL goal of less than 100 and triglyceride of less than 150 patient on simvastatin 40 mg once a day (4) Prostate cancer: Code(s): C61 - Malignant neoplasm of prostate Plan: Patient follows up with urology biopsy May 2023 plan do cryotherapy Orders: Orders AMB Hemoglobin A1c Today Z13.9 - Encounter for screening, unspecified Coding Level of Care Code Est Pt Level 4 (49117) Diagnoses Type 2 diabetes mellitus with hyperglycemia, without long-term current use of insulin E11.65 Diabetes mellitus care home insulin use: without care home use Essential hypertension I10 Hypertension type: essential hypertension High cholesterol E78.00 Prostate cancer C61
== END 2023-07-25 10:05 | disposition home or self-care (01) ==
PROVIDERS: PCP Internal Medicine; Visit Provider Internal Medicine
DX: E11.65 Type 2 diabetes mellitus with hyperglycemia (principal); I10 Essential (primary) hypertension; E78.00 Pure hypercholesterolemia, unspecified; C61 Malignant neoplasm of prostate
CPT/HCPCS: 83036; 99214

== ENCOUNTER 2023-11-13 09:36 | Outpatient (AMB) | payer MEDICARE, SELFPAY ==
[2023-11-13 09:40] VITALS: BP 136/72; PULSE 71; O2SAT 98; BMI 27.4
--- NOTE | 2023-11-13 09:40 | A.OFFPC_ITS ---
Vital Signs 11/13/23 09:40 Height 5 ft 8 in Weight 180 lb 0.2 oz BMI 27.4 BP 136/72 Blood Pressure Location Lt brachial Position Sitting Pulse 71 Pulse Source Pulse Oximeter Pulse Oximetry (%) 98 Oxygen Delivery Method Room Air Intake Visit Reasons: Annual Exam Intake Note: Patient is here today for a physical. Driver/Refuse Collector Required: No Allergies lisinopril Allergy (Unknown, Verified 11/13/23 09:41) anaphalyxis Medication List - Last Reconciled 11/13/23 by Elvie Velez MD cholecalciferol (vitamin D3) (Vitamin D3) 25 mcg PO DAILY cyanocobalamin (vitamin B-12) 1,000 mcg PO DAILY finasteride 5 mg PO DAILY 90 days hydrochlorothiazide 25 mg PO QAM metformin 500 mg PO BID 90 days metoprolol succinate ER 100 mg PO DAILY 90 days simvastatin 40 mg PO BEDTIME tadalafil (Cialis) 20 mg PO Q 2 days PRN; Tobacco use date assessed: 11/13/23 Fall risk assessment: No Falls in past year Last assessed Fall Risk: 11/13/23 Dental Screening Dental Screen Date: 11/13/23 Did you have a dental visit in the last 12 months?: Yes Did you have a dental problem in the last 6 months where you did not have access to dental care?: No Was dental information given to patient?: Patient has dentist HPI Annual Exam HPI Details 72-year-old overweight male with control led diabetes mellitus hypertension hypercholesterolemia history of prostate cancer coming in for follow-up. Patient's colonoscopy last done in 2019 and advised 5 years repeat. Patient is here for physical exam [facility] Medical History Obesity (BMI 30-39.9) Vitamin D deficiency Erectile dysfunction Type 2 diabetes mellitus with hyperglycemia History of dysphagia High cholesterol Hypertension Surgical History Hx of tonsillectomy History of esophagogastroduodenoscopy (EGD) Hx of colonoscopy Family History Father Hypertension Mother Uterine cancer Sister In good health Brother No problems noted. Social History (Updated 11/13/23 @ 10:42 by Elvie Velez MD) Housing: House Alcohol intake: current Alcohol intake frequency: a few times a week Comment: 2x a week2 drinks Patient Tobacco Use Status: Never used Tobacco e-Cigarette/Vaping Use: Never Used Second Hand Smoke Exposure: Yes service: No Current occupational status: employed and retired Cognitive needs: No Hearing needs: No Vision needs: Yes (Glasses) Questionnaire PHQ-9 Over the last 2 weeks, how often have you been bothered by any of the following problems? 1. Little interest or pleasure in doing things: not at all 2. Feeling down, depressed, or hopeless: not at all 3. Trouble falling or staying asleep, or sleeping too much: not at all 4. Feeling tired or having little energy: not at all 5. Poor appetite or overeating: not at all 6. Feeling bad about yourself - or that you are a failure or have let yourself or your family down: not at all 7. Trouble concentrating on things, such as reading the newspaper or watching television: not at all 8. Moving or speaking so slowly that other people could have noticed. Or the opposite - being so fidgety or restless that you have been moving around a lot more than usual: not at all 9. Thoughts that you would be better off or of hurting yourself in some way: not at all Total score: 0 Depression Screening Interpretation: Negative Depression Screening Done: Yes Source: Developed by Drs. Kayden Weir, Nicole Rodriguez, Gokul Biggs and colleagues, with an educational claire from [employer]. Thrive Questionnaire Date Thrive assessed: 11/13/23 I am a: Patient What is your living situation today?: I have a steady place to live Within the past 12 months, did the food you bought not last and you didn't have the money to get more?: Never true Within the past 12 months, did you worry whether your food would run out before you got money to buy more?: Never true Do you have trouble paying for medicines?: No Do you have trouble getting transportation to medical appointments?: No Do you have trouble paying your heating and electricity bill?: No Do you have trouble taking care of your child, family member or friend?: No Do you have trouble with day-to-day activities such as bathing, preparing meals, shopping, managing finances, etc.?: No Are you currently unemployed and looking for a job?: No Are you interested in more education?: No Please select the resources that you would like help with: None THRIVE Score: 0 AUDIT C Alcohol Use Questionnaire (AUDIT-C) 1. How often do you have a drink containing alcohol?: 2-4 times a month 2. How many drinks containing alcohol do you have on a typical day when you are drinking?: 1 or 2 3. How often do you have six or more drinks on one occasion?: Never Total Score: 2 MATT-7 AMB Questionnaire MATT-7 Date MATT - 7 assessed: 11/13/23 Feeling nervous, anxious, or on edge: 0 = Not at all Not being able to stop or control worryin = Not at all Worrying too much about different things: 0 = Not at all Trouble relaxin = Not at all Being so restless that it is hard to sit still: 0 = Not at all Becoming easily annoyed or irritable: 0 = Not at all Feeling afraid as if something awful might happen: 0 = Not at all Total MATT-7 score (0-4 normal; 5-9 mild; 10-14 moderate; 15-21 severe): 0 Source: Developed by Drs. Kayden Weir, Nicole Rodriguez, Gokul Biggs and colleagues, with an educational claire from [employer]. Review of Systems Const Denies poor appetite and Denies weakness Eyes Denies no additional complaints ENT Reports Normal hearing present, Denies dizziness, Denies nasal congestion, Denies tinnitus and Denies sore throat Card Denies chest pain, Denies syncope, Denies rapid heart rate and Denies dyspnea Resp Denies cough and Denies dyspnea GI Denies change in stool character, Reports constipation, Denies diarrhea, Denies nausea and Denies vomiting Denies dysuria and Denies urinary frequency Neuro Reports Normal hearing present, Denies confusion, Denies dizziness, Denies syncope and Denies weakness Psych Denies confusion Physical exam (Primary Care) Vital Signs: Last Vital Signs Pulse 71 11/13/23 09:40 BP 136/72 11/13/23 09:40 Pulse Ox 98 11/13/23 09:40 Oxygen Delivery Method Room Air 11/13/23 09:40 BMI result Body Mass Index 27.4 Tobacco/Smoking Status: Tobacco use Status Tobacco use date assessed 11/13/23 11/13/23 09:42 Patient Tobacco Use Status Never used Tobacco 11/13/23 09:42 e-Cigarette/Vaping Use Never Used 11/13/23 09:42 PHQ-9: PHQ-9 Score PHQ-9: Total score 0 11/13/23 10:26 Depression Screening Interpretation: Negative Thrive Assessment: Date of Thrive Assessment Date Thrive assessed 11/13/23 11/13/23 10:11 Const General: No confusion Orientation/consciousness: No confusion HENMT Head: Yes normocephalic Ears: external ears normal and TM's normal bilaterally Face and sinus: Yes normal facial exam Mouth: moist mucous membranes Throat: Yes tonsils normal Eyes Conjunctivae: conjunctivae normal Pupils: Equal, round and reactive pupils present and Pupil accommodation reflex normal Direct Ophthalmoscopy: normal light reflex Neck Neck: No lymphadenopathy Thyroid: Thyroid normal Chest Chest palpation & inspection: normal inspection of the chest Resp Effort & Inspection: normal respiratory effort and no audible wheezes Auscultation: clear to auscultation bilaterally, no crackles, no wheezes and lung sounds not diminished Cardio Rate: regular rate Rhythm: regular rhythm Peripheral pulses: radial pulses present and dorsalis pedis present GI Palpation (GI): no masses Auscultation: normal bowel sounds and normoactive bowel sounds Rectal Exam - Male: Yes deferred Other: pedal pulse and pin prick N Male General Exam: Yes normal external exam Skin General skin exam: no rashes or lesions noted Rashes: no rashes Neuro General: No confusion Cranial nerves: Yes Equal, round and reactive pupils present and Yes Normal hearing present Cognition (Neuro): normal cognition Gait exam (Neuro): Normal gait present Motor exam (neuro): 5/5 motor strength present throughout Deep tendon reflexes (DTR's): Right brachioradialis reflex intensity grade: 2+, Left brachioradialis reflex intensity grade: 2+, Right patellar reflex intensity grade: 2+ and Left patellar reflex intensity grade: 2+ Extrem General: No edema Results AMB Hemoglobin A1c AMB Hemoglobin A1c 6.4 % Last Edit by LOYDA Carlson on 11/13/23 10:26 Results Reviewed Results Reviewed: Laboratory Last Values Hgb A1c (Clinic) 6.4 % (4.0-6.0) H 11/13/23 10:13 Assessment and Plan Assessment & Plan (1) Annual physical exam: Code(s): Z00.00 - Encounter for general adult medical examination without abnormal findings (2) Type 2 diabetes mellitus with hyperglycemia: Comment: Dr. Coon 07/04/2022 Code(s): E11.65 - Type 2 diabetes mellitus with hyperglycemia Qualifiers: Diabetes mellitus senior living insulin use: without senior living use Qualified Code(s): E11.65 - Type 2 diabetes mellitus with hyperglycemia Plan: Decrease the amount of carbohydrate intake, pasta, bread, rice and potatoes are all sugar and that is aside from all the sweet stuff, remember that fruits are good but they are Sweet also. Hemoglobin A1c goal of less than 7.0. Patient on metformin 500 mg twice a day (3) Hypertension: Code(s): I10 - Essential (primary) hypertension Qualifiers: Hypertension type: essential hypertension Qualified Code(s): I10 - Essential (primary) hypertension Plan: Continue with blood pressure medication. Decrease salt intake and exercise continue with metoprolol 100 mg once a day hydrochlorothiazide 25 mg once a day (4) High cholesterol: Code(s): E78.00 - Pure hypercholesterolemia, unspecified Plan: Avoid fried foods, chicken skin, eggs, butter margarine, pastries and meat. Be it pork or beef they have a lot of cholesterol LDL goal of less than 100 and triglyceride of less than 150. Patient on simvastatin 40 mg once a day (5) Overweight (BMI 25.0-29.9): Code(s): E66.3 - Overweight Plan: Diet and exercise (6) Prostate cancer: Code(s): C61 - Malignant neoplasm of prostate Plan: Follow-up with urology Orders: Orders Comprehensive Met. Panel 3 Months E11.65 - Type 2 diabetes mellitus with hyperglycemia Free T4 (Free Thyroxine) 3 Months E11.65 - Type 2 diabetes mellitus with hyperglycemia Creatinine Urine 3 Months E11.65 - Type 2 diabetes mellitus with hyperglycemia Vitamin B12 and Folate 3 Months E11.65 - Type 2 diabetes mellitus with hyperglycemia Prostate Specific Antigen Scr 3 Months E11.65 - Type 2 diabetes mellitus with hyperglycemia Lipid Panel 3 Months E11.65 - Type 2 diabetes mellitus with hyperglycemia, E78.00 - Pure hypercholesterolemia, unspecified AMB Hemoglobin A1c Today E11.65 - Type 2 diabetes mellitus with hyperglycemia Complete Blood Count Auto Diff 3 Months E11.65 - Type 2 diabetes mellitus with hyperglycemia Thyroid Stimulating Hormone 3 Months E11.65 - Type 2 diabetes mellitus with hyperglycemia Microalbumin, Random (w Creat) 3 Months E11.65 - Type 2 diabetes mellitus with hyperglycemia Ferritin 3 Months E11.65 - Type 2 diabetes mellitus with hyperglycemia IRON PROFILE 3 Months E11.65 - Type 2 diabetes mellitus with hyperglycemia Reticulocyte Count 3 Months E11.65 - Type 2 diabetes mellitus with hyperglycemia Hemoglobin A1c 3 Months E11.65 - Type 2 diabetes mellitus with hyperglycemia Medications: Refilled metoprolol succinate ER 100 mg PO DAILY 90 days 90 tabs 2RF cyanocobalamin (vitamin B-12) 1,000 mcg PO DAILY 90 tabs 2RF Coding Level of Care Code Est Pt Prev Care >65y(41315) Diagnoses Annual physical exam Z00.00 Type 2 diabetes mellitus with hyperglycemia, without long-term current use of insulin E11.65 Diabetes mellitus outboard technician insulin use: without outboard technician use Essential hypertension I10 Hypertension type: essential hypertension High cholesterol E78.00 Overweight (BMI 25.0-29.9) E66.3 Prostate cancer C61
== END 2023-11-13 11:06 | disposition home or self-care (01) ==
PROVIDERS: PCP Internal Medicine; Visit Provider Internal Medicine
DX: Z00.00 Encounter for general adult medical examination without abnormal findings (principal); E11.65 Type 2 diabetes mellitus with hyperglycemia; C61 Malignant neoplasm of prostate; E66.3 Overweight; Z68.27 Body mass index [BMI] 27.0-27.9, adult; I10 Essential (primary) hypertension; E78.00 Pure hypercholesterolemia, unspecified
CPT/HCPCS: 83036; 99397

== ENCOUNTER 2024-01-30 10:07 | Outpatient (REF) | payer MEDICARE, SELFPAY ==
[2024-01-30 10:31] LABS: MANUAL DIFF FLAG NO
[2024-01-30 11:13] LABS: Basophils Percent Auto 0.1 % (0-2); Eosinophils Absolute Auto 0.1 X10*3/uL (0.0-0.4); Eosinophils Percent Auto 0.9 % (0-4); Hematocrit 35.2 % (42.0-52.0); Imm Gran Abs Auto 0.02 X10*3/uL (0.00-0.03); Imm Gran Pct Auto 0.3 % (0.0-0.4); Lymphocytes Absolute Auto 3.6 X10*3/uL (1.2-4.9); Lymphocytes Percent Auto 47.9 % (20-40); Mean Corpuscular HGB Conc 34.1 g/dl (31.0-36.0); Mean Corpuscular Hemoglobin 28.9 pg (27.0-33.0); Mean Corpuscular Volume 84.8 fL (80.0-98.0); Mean Platelet Volume 10.1 fL (9.4-12.4); Monocytes Absolute Auto 0.7 X10*3/uL (0.1-1.2); Monocytes Percent Auto 9.2 % (2-11); Neutrophils Absolute Auto 3.1 x10*3/uL (2.0-8.3); Neutrophils Percent Auto 41.6 % (45-73); Platelet Count 307 X10*3/uL (160-400); Red Blood Count 4.15 X10*6/uL (4.60-5.80); Red Cell Distribution Width 15.3 % (11.0-16.0); Retic HGB Equivalent 32.7 pg (30.0-35.0); Reticulocyte Percent 1.2 % (0.5-1.8); White Blood Count 7.5 X10*3/uL (4.8-10.8)
[2024-01-30 11:59] LABS: Estimated Average Glucose 128 mg/dL; Hemoglobin A1c % 6.1 % (<6.0)
[2024-01-30 12:02] LABS: Alanine Aminotransferase 16 U/L (0-40); Albumin Level 4.1 g/dL (3.5-5.0); Alkaline Phosphatase 75 U/L (39-117); Anion Gap 15 (12-20); Aspartate Amino Transferase 21 U/L (5-37); Bilirubin Total 0.5 mg/dL (0.0-1.0); Blood Urea Nitrogen 14 mg/dL (9-16); Calcium 10.1 mg/dL (8.4-10.2); Carbon Dioxide 26 mmol/L (22-29); Chloride 101 mmol/L (96-108); Cholesterol 127 mg/dL (<200); Estimated Glomerular Filt Rate > 60; Ferritin 600 ng/mL (20-250); Free T4 (Free Thyroxine) 0.95 ng/dL (0.71-1.85); Glucose Random 114 mg/dL (60-115); HDL Cholesterol 50 mg/dL (>40); Iron 64 mcg/dL (45-160); LDL Cholesterol Calculated 60 mg/dL (<100); Percent Iron Saturation 26 % (15-50); Potassium 3.3 mmol/L (3.3-5.1); Sodium 139 mmol/L (135-145); Thyroid Stimulating Hormone 0.79 uIU/mL (0.32-4.0); Total Iron Binding Capacity 243 mcg/dL (228-428); Total Protein 7.9 g/dL (6.5-8.0); Triglycerides 87 mg/dL (<150); Unsaturated Iron Binding 179 ug/dL
[2024-01-30 12:17] LABS: Folate 8.7 ng/mL (> or = 4.0); Prostate Specific Antigen Scr 2.19 ng/mL (<0.05-4.0); Vitamin B12 1458 pg/mL (200-900)
[2024-01-30 15:08] LABS: Microalbum/Creatinine Ratio Ur 7.9 ug/mg cr (<30)
== END 2024-01-30 10:08 | disposition home or self-care (01) ==
LOC: HO.LAB 10:07
PROVIDERS: PCP Internal Medicine; Visit Provider Internal Medicine
DX: E11.65 Type 2 diabetes mellitus with hyperglycemia (principal); Z12.5 Encounter for screening for malignant neoplasm of prostate; E78.00 Pure hypercholesterolemia, unspecified
CPT/HCPCS: 36415; 80053; 80061; 82043; 82570; 82607; 82728; 82746; 83036; 83540; 84153; 84439; 84443; 85025; 85045

== ENCOUNTER 2024-02-16 08:10 | Outpatient (AMB) | payer MEDICARE, SELFPAY ==
[2024-02-16 08:33] VITALS: BP 102/70; PULSE 57; O2SAT 97; BMI 25.4
--- NOTE | 2024-02-16 08:33 | A.OFFPC_ITS ---
Vital Signs 02/16/24 08:33 Height 5 ft 8 in Weight 167 lb 0.4 oz BMI 25.4 BP 102/70 Blood Pressure Location Lt brachial Position Sitting Pulse 57 Pulse Oximetry (%) 97 Oxygen Delivery Method Room Air Intake Visit Reasons: preop Intake Note: Patient is here for a Pre-op for [type of surgery] scheduled with Dr. Pino on 02/19/2024 Allergies lisinopril Allergy (Unknown, Verified 02/16/24 08:39) anaphalyxis Medication List - Last Reconciled 02/16/24 by Elvie Velez MD cholecalciferol (vitamin D3) (Vitamin D3) 25 mcg PO DAILY cyanocobalamin (vitamin B-12) 1,000 mcg PO DAILY finasteride 5 mg PO DAILY 90 days hydrochlorothiazide 25 mg PO QAM metformin 500 mg PO BID 90 days metoprolol succinate ER 100 mg PO DAILY 90 days simvastatin 40 mg PO BEDTIME tadalafil (Cialis) 20 mg PO Q 2 days PRN; Tobacco use date assessed: 11/13/23 Fall risk assessment: No Falls in past year Last assessed Fall Risk: 02/16/24 Dental Screening Dental Screen Date: 11/13/23 HPI preop HPI Details 73-year-old male with diabetes mellitus, hypertension hyper cholesterolemia and history of prostate cancer coming in for preoperative evaluation. For cataract surgery R eye 02/19/2024 Dr. Gailndo [facility] Medical History Obesity (BMI 30-39.9) Vitamin D deficiency Erectile dysfunction Type 2 diabetes mellitus with hyperglycemia History of dysphagia High cholesterol Hypertension Surgical History Hx of tonsillectomy History of esophagogastroduodenoscopy (EGD) Hx of colonoscopy Family History Father Hypertension Mother Uterine cancer Sister In good health Brother No problems noted. Social History (Updated 02/16/24 @ 08:48 by Elvie Velez MD) Housing: House Alcohol intake: current Alcohol intake frequency: a few times a week Comment: 4x a week2 drinks Patient Tobacco Use Status: Never used Tobacco e-Cigarette/Vaping Use: Never Used Second Hand Smoke Exposure: Yes service: No Current occupational status: employed and retired Cognitive needs: No Hearing needs: No Vision needs: Yes (Glasses) Questionnaire Thrive Questionnaire Date Thrive assessed: 11/13/23 AUDIT C Alcohol Use Questionnaire (AUDIT-C) 1. How often do you have a drink containing alcohol?: 2-4 times a month 2. How many drinks containing alcohol do you have on a typical day when you are drinking?: 1 or 2 3. How often do you have six or more drinks on one occasion?: Never Total Score: 2 MATT-7 AMB Questionnaire MATT-7 Date MATT - 7 assessed: 11/13/23 Source: Developed by Drs. Kayden Weir, Nicole Rodriguez, Gokul Biggs and colleagues, with an educational claire from [employer]. Review of Systems Const Denies poor appetite and Denies weakness Eyes Denies no additional complaints ENT Reports Normal hearing present, Denies dizziness, Denies nasal congestion, Denies tinnitus and Denies sore throat Card Denies chest pain, Denies syncope, Denies rapid heart rate and Denies dyspnea Resp Denies cough and Denies dyspnea GI Denies change in stool character, Reports constipation, Denies diarrhea, Denies nausea and Denies vomiting Denies dysuria and Denies urinary frequency Neuro Reports Normal hearing present, Denies confusion, Denies dizziness, Denies syncope and Denies weakness Psych Denies confusion Physical exam (Primary Care) Vital Signs: Last Vital Signs Pulse 57 02/16/24 08:33 BP 102/70 02/16/24 08:33 Pulse Ox 97 02/16/24 08:33 Oxygen Delivery Method Room Air 02/16/24 08:33 BMI result Body Mass Index 25.4 Tobacco/Smoking Status: Tobacco use Status Tobacco use date assessed 11/13/23 02/16/24 08:34 Patient Tobacco Use Status Never used Tobacco 02/16/24 08:48 e-Cigarette/Vaping Use Never Used 02/16/24 08:48 Thrive Assessment: Date of Thrive Assessment Date Thrive assessed 11/13/23 02/16/24 08:34 Const General: No confusion Orientation/consciousness: No confusion Eyes Conjunctivae: conjunctivae normal Resp Auscultation: clear to auscultation bilaterally Cardio Rate: regular rate Rhythm: regular rhythm GI Inspection: Yes normal to inspection Neuro General: No confusion Cranial nerves: Yes Normal hearing present Extrem General: Yes normal to inspection and No edema Assessment and Plan Assessment & Plan (1) Preop exam for internal medicine: Code(s): Z01.818 - Encounter for other preprocedural examination Plan: Blood work reviewed because of the age and diabetes patient belongs to the intermediate risk group but with the low risk procedure no further workup needed at this time and may proceed with the contemplated procedure. Patient is advised to take the blood pressure medication hydrochlorothiazide and metoprolol. Thank you very much for letting me participate in the care of this patient. (2) Type 2 diabetes mellitus with hyperglycemia: Comment: Dr. Coon 07/04/2022 Code(s): E11.65 - Type 2 diabetes mellitus with hyperglycemia Qualifiers: Diabetes mellitus long-term insulin use: without intermediate accountant use Qualified Code(s): E11.65 - Type 2 diabetes mellitus with hyperglycemia Plan: Decrease the amount of carbohydrate intake, pasta, bread, rice and potatoes are all sugar and that is aside from all the sweet stuff, remember that fruits are good but they are Sweet also. Presently controlled on metformin 500 mg twice a day (3) Hypertension: Code(s): I10 - Essential (primary) hypertension Qualifiers: Hypertension type: essential hypertension Qualified Code(s): I10 - Essential (primary) hypertension Plan: Continue with blood pressure medication. Decrease salt intake and exercise on hydrochlorothiazide 25 mg once a day metoprolol 100 mg once a day (4) High cholesterol: Code(s): E78.00 - Pure hypercholesterolemia, unspecified Plan: Avoid fried foods, chicken skin, eggs, butter margarine, pastries and meat. Be it pork or beef they have a lot of cholesterol patient takes simvastatin 40 mg at bedtime (5) Prostate cancer: Code(s): C61 - Malignant neoplasm of prostate Plan: Continue to monitor with PSA (6) Cataract, right eye: Code(s): H26.9 - Unspecified cataract Plan: No further workup needed and may proceed with the contemplated procedure. Medications: New potassium chloride ER 20 mEq PO BID 10 tabs 0RF Coding Level of Care Code Est Pt Level 4 (16227) Diagnoses Preop exam for internal medicine Z01.818 Type 2 diabetes mellitus with hyperglycemia, without long-term current use of insulin E11.65 Diabetes mellitus long-term insulin use: without long-term use Essential hypertension I10 Hypertension type: essential hypertension High cholesterol E78.00 Prostate cancer C61 Cataract, right eye H26.9
== END 2024-02-16 08:57 | disposition home or self-care (01) ==
PROVIDERS: PCP Internal Medicine; Visit Provider Internal Medicine
DX: E11.65 Type 2 diabetes mellitus with hyperglycemia (principal); C61 Malignant neoplasm of prostate; Z01.818 Encounter for other preprocedural examination; I10 Essential (primary) hypertension; H26.9 Unspecified cataract; E78.00 Pure hypercholesterolemia, unspecified
CPT/HCPCS: 99214

== ENCOUNTER 2024-04-08 07:40 | Day surgery (SDC) | payer MEDICARE, SELFPAY ==
[2024-04-04 13:54] VITALS: BMI 25.4
--- NOTE | 2024-04-08 08:20 | PC.NURSE ---
08 dr. vivar notified of blood sugar 308
[2024-04-08 08:48] LABS: Glucose, Whole Blood 85 mg/dL (60-115)
--- NOTE | 2024-04-08 09:52 | P.CONAN_ITS ---
FORM[facility] Active Problems Active Problems: All Active Problems Cataract, right eye (Acute) Prostate cancer (Acute) Prostate enlargement (Acute) Lower urinary tract symptoms (Acute) Urinary urgency (Acute) Urinary frequency (Acute) Nocturia (Acute) Overweight (BMI 25.0-29.9) (Acute) PSA elevation (Acute) Hospital discharge follow-up (Acute) Preop exam for internal medicine (Acute) Onychomycosis (Acute) Annual physical exam (Acute) Erectile dysfunction (Acute) High cholesterol (Acute) Hypertension (Acute) Type 2 diabetes mellitus with hyperglycemia (Acute) Past Medical History Medical History (Updated 02/16/24 @ 08:45 by Elvie Velez MD) Obesity (BMI 30-39.9) Vitamin D deficiency Erectile dysfunction Type 2 diabetes mellitus with hyperglycemia History of dysphagia High cholesterol Hypertension Family History Family History Father Hypertension Mother Uterine cancer Sister In good health Brother No problems noted. Family history of problems with anesthesia: No Surgical History Surgical History (Updated 04/04/24 @ 13:15 by Rosy Gutierrez RN) Hx of prostate biopsy Hx of tonsillectomy History of esophagogastroduodenoscopy (EGD) Hx of colonoscopy History of Problems with Anesthesia: No Social History Social History (Updated 02/16/24 @ 08:48 by Elvie Velez MD) Housing: House Alcohol intake: current Alcohol intake frequency: a few times a week Comment: 4x a week2 drinks Patient Tobacco Use Status: Never used Tobacco e-Cigarette/Vaping Use: Never Used Second Hand Smoke Exposure: Yes Advance Directives: No Advance Directives Information Provided: Yes service: No Current occupational status: employed and retired Cognitive needs: No Hearing needs: No Vision needs: Yes (Glasses) Meds Allergies Allergy/AdvReac Type Severity Reaction Status Date / Time lisinopril Allergy Unknown anaphalyxis Verified 02/16/24 08:39 Active Medications: Current Medications Levofloxacin (Levaquin) 500 mg in 100 mls @ 100 mls/hr IV PREOP ONE Stop: 04/08/24 09:56 Home Medications ?Medication ?Instructions ?Recorded ?Confirmed ?Last Taken ?Type cholecalciferol (vitamin D3) 25 25 mcg PO DAILY 07/23/20 04/04/24 Unknown History mcg (1,000 unit) capsule (Vitamin D3) Exam Height,Weight and Vital Signs: Height 5 ft 8 in Weight 75.75 kg Pertinent Lab Results Pertinent Lab Results: Laboratory Tests 04/08/24 08:44 POC Glucose 85 Airway Mallampati Class: III TM Dist: >3cm Neck ROM: Full Assessment and Plan Assessment Anesthesia Assessment: Anesthesia Plan Discussed and Chart Reviewed Final Anesthetic Review Family History of Problems with Anesthesia: No History of Problems with Anesthesia: No NPO: Yes ASA Class: III Final Preanesthetic Review: No Changes in Pt Med Stat, Meds/Allgs Chart Reviewed, Consent Obtained/Reviewed and Anes Risks/Benef Reviewed Patient Risk: Intermediate Procedure Risk: Low Anesthetic Plan Anesthetic Plan: GA Disposition: Standard PACU
--- NOTE | 2024-04-08 09:54 | MHC.SHP ---
Pre-Procedural Eval Section A - 24 Hr Update-Section A only Date of Service: 04/08/24 The patient is an INPATIENT: No Changes since office visit: No Cold of Flu in the past 2 weeks, No New Medical Problems, No Changes in Medication and No Patient answered all questions The patient has been examined within 24 hours of the surgical procedure. The History & Physical has been completed within 30 days and I have reviewed it.: Yes Section B - Complete if H&P > 30 days Chief Complaint: Malignant neoplasm of prostate Details of Present Illness: Fusion targeted prostate cryotherapy Relevant Family History (Specify if Yes): No Relevant Social History: None Present Medications: see Short Stay Collaborative assessment Medical History: No relevant PMH History of Previous Operations: No relevant previous surgery Allergies: Allergies Allergy/AdvReac Type Severity Reaction Status Date / Time lisinopril Allergy Unknown anaphalyxis Verified 02/16/24 08:39 Review of Systems Sugical H&P ROS: Negative: Constitution, Cardiovascular, Respiratory, Neurological, Psychiatric, Hem-Onc, Allergic/Immunologic, Gastrointestinal, Genitourinary, Musculoskeletal, Integumentary, Endocrine and Eyes/Ears/Nose/Throat Exam Surgical H&P Exam: Normal: HEENT, Normal: Heart, Normal: Lungs, Normal: Extremities, Normal: Abdomen, Normal: Skin and Normal: Neurological Plan Diagnosis/Plan: Unchanged (targeted prostate cryotherapy) I have reviewed the history and physical and performed a pertinent physical examination on my patient. No changes have occurred unless specified. Time Spent With Patient Time: Total time managing care of this patient today ____ minutes.
[2024-04-08] MEDS: Lactated Ringers 1,000 ML 50 ML IVCONT (10:03)
[2024-04-08 11:40] VITALS: BP 145/85; PULSE 55; RESP 14; TEMP 36.1; O2SAT 98
[2024-04-08 11:45] VITALS: BP 153/86; PULSE 50; RESP 16; O2SAT 98
[2024-04-08 11:50] VITALS: BP 151/92; PULSE 42; RESP 16; O2SAT 99
[2024-04-08 11:55] VITALS: BP 153/90; PULSE 52; RESP 16; O2SAT 99
--- NOTE | 2024-04-08 12:08 | W.PM.OPN ---
Operative Note Operative Note Date of Service: 04/08/24 Narrative: Preoperative diagnosis: Prostate Cancer Postoperative diagnosis: Prostate Cancer Procedure: 1. Kenney catheter placement 1. Transrectal Ultrasound prostate 2. Creation of 3D transrectal US model with image registration and model correction including overlap of virtual targeted locations 3. Ultrasound guidance of cryotherapy needle and probe placement 4. Transperineal ultrasound-guided prostate cryotherapy Surgeon: Dr. Costa Thomson Anesthetic: LMA Indications for procedure: Prostate Cancer - Grade Group 2 - 8 mm left base lateral PiRADS 4 discrete lesion Procedure: After informed consent was verified, the patient was brought into the procedure area. Patient identity confirmed. Perioperative antibiotics confirmed. Safety pause time out performed. Anesthesia performed per protocol. Scrotum taped out of operative area. Iodine prep used. 16 Fr kenney catheter placed on the field with catheter cap. Perineal injection of local anesthetic performed. Ultrasound probe was placed per rectum with adequate lubrication. Ultrasound probe stabilized on a prostate stepper with attached grid. Ultrasound placement was made with external grid calibration for height and prostate diameter in both the transverse and longitudinal planes. Grid A-C covering right prostate and c-F covering left prostate. Numbers 1.0-2.5 covering posterior prostate and 2.5-4.0 covering anterior prostate. [employer] software and hardware platform was used for Ultrasound image acquisition, manual image registration and Ultrasound model creation, and MRI virtual target overlay. Once grid calibration was confirmed prostate ultrasound data acquisition was performed in the stepwise transverse fashion. US prostate image registration was performed using transverse and sagittal generated images. Model boundaries were marked based off acquired images. A three dimensional ultrasound model was created using [employer] software. The model was reviewed against acquired US images. The planned lesion ice ball target, based on prior acquisition of MRI imaging, was overlaid on the ultrasound images and targets confirmed through ultrasound review. Adjustments were then made between real time and projected model targeting locations. Based on pre-planning evaluation the prostate target cryotherapy areas were identified as follows - Left base lateral 0.8 cm lesion Cryotherapy area coverage was achieved with - Single Jeds [employer] Ice Diana needle The first cryotherapy needle was advanced under real time ultrasound at the target coordinates so the tip was just visible at the base of the prostate/bladder interface. Images were reviewed to ensure adequate clearance was obtained between both the urethra, with a kenney catheter, and the location of the external urethral sphincter. Once in place the needle was quick frozen to stick the prostate to the needle. This allowed placement of the temperature monitoring probe that was placed 5mm into apical prostate tissue near the sphincter for intraprocedural monitoring. Cryotherapy cycling was performed as follows - Initial cryotherapy -140C for 10 mins - Active thaw 3 min followed by passive thaw 10 min - Second cryotherapy cycle -140 for 10 mins Ice ball was monitored in real time through US imaging. Clear demarcation boundary was seen with an appropriate penumbra covering the target lesion area. Temperature montioring was performed ensuring that sphincter adjacent tissue did not drop below 5C (Lowest reading was [13C]) At the completion of the second cryotherapy cycle active thaw was performed for 3 min. The probe was then rotated and carefully withdrawn. Temperature probe was removed. He tolerated the procedure well. Was transferred to stable condition in the PACU. Printed instructions regarding antibiotic use and common side effects such as low-grade temperature, potential infection and bleeding were given CPT codes 89587 - Kenney catheter placement 27155: Transrectal ultrasound; this is a diagnostic test for evaluation of the prostate and surrounding structures, looking for abnormalities or suspicious areas worrisome for cancer 45701: 3D rendering with interpretation and reporting of computed tomography (CT), MRI, ultrasound, or other tomographic modality with image postprocessing under concurrent supervision; not requiring image postprocessing on an independent workstation - construction of 3D model with TRUS and ongoing refinement of model positioning during procedure 50354: Ultrasonic guidance for needle placement (eg, biopsy, aspiration, injection, localization device), imaging supervision and interpretation 67343 - Perineal prostate cryotherapy
[2024-04-08 12:10] VITALS: BP 148/87; PULSE 50; RESP 16; TEMP 36.1; O2SAT 99
== END 2024-04-08 12:42 | disposition home or self-care (01) ==
PROVIDERS: PCP Internal Medicine; Visit Provider Urology
DX: C61 Malignant neoplasm of prostate (principal); N52.9 Male erectile dysfunction, unspecified; I10 Essential (primary) hypertension; E78.00 Pure hypercholesterolemia, unspecified; E55.9 Vitamin D deficiency, unspecified; E11.65 Type 2 diabetes mellitus with hyperglycemia; E66.9 Obesity, unspecified; Z88.8 Allergy status to other drugs, medicaments and biological substances
CPT/HCPCS: 55873; 82947; C2618; J0131; J0690; J1100; J2250; J2405; J2704; J2795; J3010

== ENCOUNTER → 2024-04-08 07:40 | Outpatient (BNV) | payer MEDICARE, SELFPAY | PROVIDERS: PCP Internal Medicine; Visit Provider Urology | DX: C61 Malignant neoplasm of prostate (principal) | CPT/HCPCS: 55873; 76376 ==

== ENCOUNTER → 2024-04-15 09:39 | Outpatient (BNVA) | payer MEDICARE, SELFPAY | PROVIDERS: PCP Internal Medicine; Visit Provider Urology | DX: C61 Malignant neoplasm of prostate (principal) | CPT/HCPCS: 51700; 51798 ==

== ENCOUNTER 2024-07-08 09:34 | Outpatient (AMB) | payer MEDICARE, SELFPAY ==
--- NOTE | 2024-07-08 09:37 | MHC.PC.OV ---
Vital Signs 07/08/24 09:39 Height 5 ft 8 in Weight 170 lb 8 oz BMI 25.9 BP 130/62 Blood Pressure Location Lt brachial Position Sitting Pulse 65 Pulse Source Pulse Oximeter Pulse Oximetry (%) 99 Oxygen Delivery Method Room Air Intake Visit Reasons: 3mof\u Intake Note: Patient is here to follow up on HTN, DM, High Cholesterol. Field Care Coordinator Required: No Log Operations Coordinator: Not Required per policy Accompanied by: Self / Same As Patient Allergies lisinopril Allergy (Unknown, Verified 07/08/24 09:39) anaphalyxis Tobacco use date assessed: 07/08/24 Fall risk assessment: No Falls in past year Last assessed Fall Risk: 07/08/24 Dental Screening Dental Screen Date: 11/13/23 HPI 3mof\u HPI Details 73-year-old male with controlled diabetes mellitus hypertension hypercholesterolemia history of prostate cancer coming in for follow-up. Last seen in 02/05/2024 preoperative evaluation for cataract surgery. Patient was last seen in Feb 16 2024. Patient's colonoscopy is up-to-date 2019 review of the notes has been following up with Urology has had bladder catheter is procedure. March 2024 transrectal ultrasound and prostate ultrasound guidance cryotherapy needle and probe placement transperineal ultrasound-guided prostate cryotherapy. Under Dr. [facility] Medical History (Updated 07/08/24 @ 10:19 by Elvie Velez MD) Obesity (BMI 30-39.9) Vitamin D deficiency Erectile dysfunction Type 2 diabetes mellitus with hyperglycemia History of dysphagia High cholesterol Hypertension Surgical History Hx of prostate biopsy Hx of tonsillectomy History of esophagogastroduodenoscopy (EGD) Hx of colonoscopy Family History Father Hypertension Mother Uterine cancer Sister In good health Brother No problems noted. Social History Housing: House Alcohol intake: current Alcohol intake frequency: a few times a week Comment: 4x a week2 drinks Patient Tobacco Use Status: Never used Tobacco e-Cigarette/Vaping Use: Never Used Second Hand Smoke Exposure: Yes service: No Current occupational status: employed and retired Cognitive needs: No Hearing needs: No Vision needs: Yes (Glasses) Questionnaire Thrive Questionnaire Date Thrive assessed: 11/13/23 MATT-7 AMB Questionnaire MATT-7 Date MATT - 7 assessed: 11/13/23 Source: Developed by Drs. Kayden Weir, Nicole Rodriguez, Gokul Biggs and colleagues, with an educational claire from [employer]. Physical exam (Primary Care) Vital Signs: Last Vital Signs Pulse 65 07/08/24 09:39 BP 130/62 07/08/24 09:39 Pulse Ox 99 07/08/24 09:39 Oxygen Delivery Method Room Air 07/08/24 09:39 BMI result Body Mass Index 25.9 Tobacco/Smoking Status: Tobacco use Status Tobacco use date assessed 07/08/24 07/08/24 09:46 Patient Tobacco Use Status Never used Tobacco 07/08/24 09:46 e-Cigarette/Vaping Use Never Used 07/08/24 09:46 Thrive Assessment: Date of Thrive Assessment Date Thrive assessed 11/13/23 07/08/24 09:46 Const General: alert; No acute distress Eyes Conjunctivae: conjunctivae normal Resp Auscultation: clear to auscultation bilaterally Cardio Rate: regular rate Rhythm: regular rhythm GI Inspection: Yes normal to inspection Extrem General: Yes normal to inspection and No edema Results AMB Hemoglobin A1c AMB Hemoglobin A1c 6.0 % Last Edit by LOYDA Gonsalez on 07/08/24 10:01 Results Reviewed Results Reviewed: Laboratory Last Values Hgb A1c (Clinic) 6.0 % (4.0-6.0) 07/08/24 09:37 Coding Level of Care Code Est Pt Level 4 (33888) Complex EM visit Add On G2211 Diagnoses Prostate cancer C61 Type 2 diabetes mellitus with hyperglycemia, without long-term current use of insulin E11.65 Diabetes mellitus correction insulin use: without correction use Essential hypertension I10 Hypertension type: essential hypertension High cholesterol E78.00 Assessment & Plan Assessment & Plan (1) Prostate cancer: Comment: March 2024 transrectal ultrasound and prostate ultrasound guidance cryotherapy needle and probe placement transperineal ultrasound-guided prostate cryotherapy. Under Dr. Thomson Code(s): C61 - Malignant neoplasm of prostate Category: Medical Plan: Patient is being followed up by Urology and had just had cryotherapy. (2) Type 2 diabetes mellitus with hyperglycemia: Comment: Dr. Coon 07/04/2022, Dr. Seay Code(s): E11.65 - Type 2 diabetes mellitus with hyperglycemia Category: Medical Qualifiers: Diabetes mellitus correction insulin use: without correction use Qualified Code(s): E11.65 - Type 2 diabetes mellitus with hyperglycemia Plan: Decrease the amount of carbohydrate intake, pasta, bread, rice and potatoes are all sugar and that is aside from all the sweet stuff, remember that fruits are good but they are Sweet also. Hemoglobin A1c goal of less than 7.0. Patient on metformin 500 mg twice a day (3) Hypertension: Code(s): I10 - Essential (primary) hypertension Category: Medical Qualifiers: Hypertension type: essential hypertension Qualified Code(s): I10 - Essential (primary) hypertension Plan: Continue with blood pressure medication. Decrease salt intake and exercise on metoprolol 100 mg once a day hydrochlorothiazide 25 mg once a day patient had allergy to JOANIE inhibitors (4) High cholesterol: Code(s): E78.00 - Pure hypercholesterolemia, unspecified Category: Medical Plan: Avoid fried foods, chicken skin, eggs, butter margarine, pastries and meat. Be it pork or beef they have a lot of cholesterol January 2024 last blood work on simvastatin 40 mg once a day Orders: Orders AMB Hemoglobin A1c Today E11.65 - Type 2 diabetes mellitus with hyperglycemia
[2024-07-08 09:39] VITALS: BP 130/62; PULSE 65; O2SAT 99; BMI 25.9
== END 2024-07-08 10:24 | disposition home or self-care (01) ==
PROVIDERS: PCP Internal Medicine; Visit Provider Internal Medicine
DX: C61 Malignant neoplasm of prostate (principal); E11.65 Type 2 diabetes mellitus with hyperglycemia; I10 Essential (primary) hypertension; E78.00 Pure hypercholesterolemia, unspecified

== ENCOUNTER → 2024-07-08 09:34 | Outpatient (BNVA) | payer MEDICARE, SELFPAY | PROVIDERS: PCP Internal Medicine; Visit Provider Internal Medicine | DX: E11.65 Type 2 diabetes mellitus with hyperglycemia (principal); C61 Malignant neoplasm of prostate; I10 Essential (primary) hypertension; E78.00 Pure hypercholesterolemia, unspecified; Z79.84 Long term (current) use of oral hypoglycemic drugs; Z79.899 Other long term (current) drug therapy | CPT/HCPCS: 83036; 99212 ==

== ENCOUNTER 2024-07-11 09:57 | Outpatient (AMB) | payer MEDICARE, SELFPAY ==
--- NOTE | 2024-07-11 10:19 | A.OFFVIS_ITS ---
Intake Visit Reasons: Prostate Cryo- follow up Intake Note: Patient is present for Post Op Prostate Cyro Urology Med: Finasteride Antibiotic Allergy: None Blood Thinner: None Asian Studies Program Chair Required: No Accompanied by: Self / Same As Patient Allergies lisinopril Allergy (Unknown, Verified 07/11/24 10:22) anaphalyxis HPI Comments Details: Jan is a very pleasant 72-year-old male patient of Dr. Velez. He has a past medical history of ED, high cholesterol, hypertension, obesity, vitamin-D deficiency, and type 2 diabetes. He presents to the office today for follow-up. Of note, Jan is a pleasant male. He is a patient of Dr. Velez. He seen for the following urologic conditions - elevated PSA - prostate cancer Noticed improvement in urinary flow Consistent with cryotherapy effect Stop finasteride PSA today and 4 months 04/10 Targeted prostate cryotherapy 02/08 PSA 2.2 Prostate MRI - confirms left base single legion Prostate cancer - 05/10 low volume, intermediate risk, clinically localized PSA at diagnosis 5.1, free% 7 Prostate volume 40 g All cores positive left side Histologic type: Acinar adenocarcinoma Histologic grade: Ricardo score: 3+3=6 (F), 3+4=7 (B,D) % of pattern 4: 20% % of pattern 5: N/A Tumor quantitation: Number cores positive: 3 % of tissue involved: 6% of all tissue Periprostatic fat inv.: Not identified Seminal vesicle inv.: Not identified Perineural inv.: Not identified LVI: Not identified Has been using 5 mg Cialis daily for prostate symptoms PFSH Medical History Obesity (BMI 30-39.9) Vitamin D deficiency Erectile dysfunction Type 2 diabetes mellitus with hyperglycemia History of dysphagia High cholesterol Hypertension Surgical History Hx of prostate biopsy Hx of tonsillectomy History of esophagogastroduodenoscopy (EGD) Hx of colonoscopy Family History Father Hypertension Mother Uterine cancer Sister In good health Brother No problems noted. Social History Housing: House Alcohol intake: current Alcohol intake frequency: a few times a week Comment: 4x a week2 drinks Patient Tobacco Use Status: Never used Tobacco e-Cigarette/Vaping Use: Never Used Second Hand Smoke Exposure: Yes service: No Current occupational status: employed and retired Cognitive needs: No Hearing needs: No Vision needs: Yes (Glasses) Review of Systems Const Denies chills and Denies fever(s) Card Reports no additional complaints and Denies syncope Resp Denies cough GI Denies abdominal pain and Denies heartburn Reports as per HPI and Denies change in libido Neuro Denies syncope Psych Denies change in libido Endo Denies change in libido Physical Exam Const General: cooperative, healthy appearing, comfortable and no acute distress Orientation/consciousness: patient oriented x3 HEENT Face and sinus: Yes normal facial exam Mouth: moist mucous membranes Neck Neck: Yes normal visual inspection, Yes full ROM and Yes trachea midline Chest Chest palpation & inspection: normal inspection of the chest Resp Effort & Inspection: normal respiratory effort, able to speak in complete sentences and no respiratory distress GI Inspection: Yes normal to inspection Back/Spine/Pelvis Cervical Spine: normal cervical lordosis Thoracic/Lumbar Spine: thoracic and lumbar spine normal to inspection Skin General skin exam: no rashes or lesions noted Neuro General: patient oriented x3, gait normal, tone normal and moves all extremities Extrem General: Yes normal to inspection and Yes capillary refill normal Assessment & Plan Assessment & Plan (1) Prostate cancer: Comment: March 2024 transrectal ultrasound and prostate ultrasound guidance cryotherapy needle and probe placement transperineal ultrasound-guided prostate cryotherapy. Under Dr. Thomson Code(s): C61 - Malignant neoplasm of prostate Category: Medical (2) Erectile dysfunction: Code(s): N52.9 - Male erectile dysfunction, unspecified Category: Medical Plan Four month follow-up PSA Orders: Orders Prostate Specific Antigen Today C61 - Malignant neoplasm of prostate Prostate Specific Antigen 4 Months C61 - Malignant neoplasm of prostate Patient Instructions: Imaging studies, laboratory and physical exam results were discussed and reviewed in detail. No major barriers to patient understanding were identified. An opportunity to ask questions regarding the treatment plan was provided. All questions were answered. The patient expressed understanding and agreement with the above treatment plan. The patient is aware they should contact our office by phone for worsening of their current condition or the appearance of new urologic symptoms. Compliance is encouraged with any medications and followup testing that is ordered. It is a privilege to participate in the urologic care of your patient. If you have any questions or concerns regarding treatment for the above conditions, or other urologic issues, please do not hesitate to contact me. The office telephone contact is [phone]. This note is constructed using voice recognition software. While every effort has been made to ensure accuracy foreman/pile driving and erection errors may have been included. Yours sincerely, Dr Costa Thomson MD, [facility] - Urology Providers of Expert, Compassionate Care for the Genitourinary System Coding Level of Care Code Est Pt Level 3 (79360) Diagnoses Prostate cancer C61 Erectile dysfunction N52.9
== END 2024-07-11 10:51 | disposition home or self-care (01) ==
PROVIDERS: PCP Internal Medicine; Visit Provider Urology
DX: C61 Malignant neoplasm of prostate (principal); N52.9 Male erectile dysfunction, unspecified
CPT/HCPCS: 99213

== ENCOUNTER → 2024-07-11 09:57 | Outpatient (BNVA) | payer MEDICARE, SELFPAY | PROVIDERS: PCP Internal Medicine; Visit Provider Urology | DX: C61 Malignant neoplasm of prostate (principal); N52.9 Male erectile dysfunction, unspecified | CPT/HCPCS: 99212 ==

== ENCOUNTER 2024-07-11 10:58 | Outpatient (REF) | payer MEDICARE, SELFPAY ==
[2024-07-11 14:31] LABS: Prostate Specific Antigen 0.48 ng/mL (<0.05-4.0)
== END 2024-07-11 10:59 | disposition home or self-care (01) ==
LOC: HO.10HDL 10:58
PROVIDERS: Visit Provider Urology
DX: C61 Malignant neoplasm of prostate (principal); Z12.5 Encounter for screening for malignant neoplasm of prostate
CPT/HCPCS: 36415; 84153

== ENCOUNTER 2024-10-30 09:28 | Outpatient (AMB) | payer MEDICARE, SELFPAY ==
--- NOTE | 2024-10-30 09:33 | A.OFFPC_ITS ---
Vital Signs 10/30/24 09:34 Height 5 ft 8 in Weight 178 lb BMI 27.1 BP 132/68 Blood Pressure Location Lt brachial Position Sitting Pulse 64 Pulse Source Pulse Oximeter Pulse Oximetry (%) 98 Oxygen Delivery Method Room Air Intake Visit Reasons: DM Allergies lisinopril Allergy (Unknown, Verified 10/30/24 09:34) anaphalyxis Tobacco use date assessed: 10/30/24 Fall risk assessment: No Falls in past year Last assessed Fall Risk: 10/30/24 Dental Screening Dental Screen Date: 10/30/24 Did you have a dental visit in the last 12 months?: Yes Did you have a dental problem in the last 6 months where you did not have access to dental care?: No Was dental information given to patient?: Patient has dentist HPI DM HPI Details The patient is a 73-year-old male presenting with follow-up for multiple chronic conditions, including Type 2 Diabetes Mellitus, Essential Hypertension, and Hypercholesterolemia. He reports an 8-pound weight gain since the last visit in June 2024. His diabetes is controlled with a Hemoglobin A1c of 6.1, with a goal of maintaining levels below 7.0, managed by diet and Metformin 500 mg twice daily. Essential Hypertension is being treated with Hydrochlorothiazide and Metoprolol, while Hypercholesterolemia management includes Simvastatin 40 mg at bedtime. The patient has a significant history of prostate cancer, treated with cryotherapy in March 2024, and he remains under urological surveillance with PSA being monitored. Anemia was noted in the blood work done in January 2024, a condition he has had for several years. Additionally, the patient has a previous diagnosis of tubular adenoma discovered in July 2020 during a colonoscopy, with a reminder for a follow-up colonoscopy in the current year. His cholesterol numbers remain under control, with LDL cholesterol less than 100 mg/dL and triglycerides below 150 mg/dL. He recently had blood work in January 2024, which demonstrated anemia. Electrolyte panel showed low-normal potassium at 3.3 mEq/L, with normal renal function. The patient is not experiencing any bowel or urinary issues, and no edema is present. Recent eye examinations are performed at [facility], with referrals to Dr. Avalos as needed. [facility] Medical History Obesity (BMI 30-39.9) Vitamin D deficiency Erectile dysfunction Type 2 diabetes mellitus with hyperglycemia History of dysphagia High cholesterol Hypertension Surgical History Hx of prostate biopsy Hx of tonsillectomy History of esophagogastroduodenoscopy (EGD) Hx of colonoscopy Family History Father Hypertension Mother Uterine cancer Sister In good health Brother No problems noted. Social History Housing: House Alcohol intake: current Alcohol intake frequency: a few times a week Comment: 4x a week2 drinks Patient Tobacco Use Status: Never used Tobacco Tobacco use type: Cigarette e-Cigarette/Vaping Use: Never Used Second Hand Smoke Exposure: Yes service: No Current occupational status: employed and retired Cognitive needs: No Hearing needs: No Vision needs: Yes (Glasses) Questionnaire PHQ-9 Over the last 2 weeks, how often have you been bothered by any of the following problems? 1. Little interest or pleasure in doing things: not at all 2. Feeling down, depressed, or hopeless: not at all 3. Trouble falling or staying asleep, or sleeping too much: not at all 4. Feeling tired or having little energy: not at all 5. Poor appetite or overeating: not at all 6. Feeling bad about yourself - or that you are a failure or have let yourself or your family down: not at all 7. Trouble concentrating on things, such as reading the newspaper or watching television: not at all 8. Moving or speaking so slowly that other people could have noticed. Or the opposite - being so fidgety or restless that you have been moving around a lot more than usual: not at all 9. Thoughts that you would be better off or of hurting yourself in some way: not at all Total score: 0 Depression Screening Interpretation: Negative Depression Screening Done: Yes Source: Developed by Drs. Kayden Weir, Nicole Rodriguez, Gokul Biggs and colleagues, with an educational claire from [employer]. Thrive Questionnaire Date Thrive assessed: 10/30/24 I am a: Patient What is your living situation today?: I have a steady place to live Within the past 12 months, did the food you bought not last and you didn't have the money to get more?: Never true Within the past 12 months, did you worry whether your food would run out before you got money to buy more?: Never true Do you have trouble paying for medicines?: No Do you have trouble getting transportation to medical appointments?: No Do you have trouble paying your heating and electricity bill?: No Do you have trouble taking care of your child, family member or friend?: No Do you have trouble with day-to-day activities such as bathing, preparing meals, shopping, managing finances, etc.?: No Are you currently unemployed and looking for a job?: No Are you interested in more education?: No Currently or been in a relationship where the following occur: No concerns reported THRIVE Score: 0 AUDIT C Alcohol Use Questionnaire (AUDIT-C) 1. How often do you have a drink containing alcohol?: 2-4 times a month 2. How many drinks containing alcohol do you have on a typical day when you are drinking?: 1 or 2 3. How often do you have six or more drinks on one occasion?: Never Total Score: 2 MATT-7 AMB Questionnaire MATT-7 Date MATT - 7 assessed: 10/30/24 Feeling nervous, anxious, or on edge: 0 = Not at all Not being able to stop or control worryin = Not at all Worrying too much about different things: 0 = Not at all Trouble relaxin = Not at all Being so restless that it is hard to sit still: 0 = Not at all Becoming easily annoyed or irritable: 0 = Not at all Feeling afraid as if something awful might happen: 0 = Not at all Total MATT-7 score (0-4 normal; 5-9 mild; 10-14 moderate; 15-21 severe): 0 Source: Developed by Drs. Kayden Weir, Nicole Rodriguez, Gokul Biggs and colleagues, with an educational claire from [employer]. Physical exam (Primary Care) Vital Signs: Last Vital Signs Pulse 64 10/30/24 09:34 BP 132/68 10/30/24 09:34 Pulse Ox 98 10/30/24 09:34 Oxygen Delivery Method Room Air 10/30/24 09:34 BMI result Body Mass Index 27.1 Tobacco/Smoking Status: Tobacco use Status Tobacco use date assessed 10/30/24 10/30/24 09:35 Patient Tobacco Use Status Never used Tobacco 10/30/24 09:33 Tobacco use type Cigarette 10/30/24 09:35 e-Cigarette/Vaping Use Never Used 10/30/24 09:33 PHQ-9: PHQ-9 Score PHQ-9: Total score 0 10/30/24 09:51 Depression Screening Interpretation: Negative Thrive Assessment: Date of Thrive Assessment Date Thrive assessed 10/30/24 10/30/24 09:35 Currently or been in a relationship where the following occur: No concerns reported Const General: alert; No acute distress Eyes Conjunctivae: conjunctivae normal Resp Auscultation: clear to auscultation bilaterally Cardio Rate: regular rate Rhythm: regular rhythm GI Inspection: Yes normal to inspection Extrem General: Yes normal to inspection and No edema Results AMB Hemoglobin A1c AMB Hemoglobin A1c 6.1 % Last Edit by Hilda Alvarez CMA on 10/30/24 09 :51 Results Reviewed Results Reviewed: Laboratory Last Values Hgb A1c (Clinic) 6.1 % (4.0-6.0) H 10/30/24 09:34 Coding Level of Care Code Est Pt Level 4 (42145) Diagnoses Type 2 diabetes mellitus with hyperglycemia, without long-term current use of insulin E11.65 Diabetes mellitus supervisor long goods insulin use: without skilled nursing use Essential hypertension I10 Hypertension type: essential hypertension High cholesterol E78.00 Overweight (BMI 25.0-29.9) E66.3 Prostate cancer C61 Tubular adenoma of colon D12.6 Assessment & Plan Assessment & Plan (1) Type 2 diabetes mellitus with hyperglycemia: Comment: Dr. Coon 07/04/2022, Dr. Seay Code(s): E11.65 - Type 2 diabetes mellitus with hyperglycemia Category: Medical Qualifiers: Diabetes mellitus supervisor long goods insulin use: without skilled nursing use Qualified Code(s): E11.65 - Type 2 diabetes mellitus with hyperglycemia Plan: Decrease the amount of carbohydrate intake, pasta, bread, rice and potatoes are all sugar and that is aside from all the sweet stuff, remember that fruits are good but they are Sweet also. Hemoglobin A1c goal of less than 7.0 patient is taking metformin 500 mg twice a day (2) Hypertension: Code(s): I10 - Essential (primary) hypertension Category: Medical Qualifiers: Hypertension type: essential hypertension Qualified Code(s): I10 - Essential (primary) hypertension Plan: Continue with blood pressure medication. Decrease salt intake and exercise on hydrochlorothiazide metoprolol. (3) High cholesterol: Code(s): E78.00 - Pure hypercholesterolemia, unspecified Category: Medical Plan: Avoid fried foods, chicken skin, eggs, butter margarine, pastries and meat. Be it pork or beef they have a lot of cholesterol patient on simvastatin 40 mg at bedtime (4) Overweight (BMI 25.0-29.9): Code(s): E66.3 - Overweight Category: Medical Plan: Diet and exercise (5) Prostate cancer: Comment: March 2024 transrectal ultrasound and prostate ultrasound guidance cryotherapy needle and probe placement transperineal ultrasound-guided prostate cryotherapy. Under Dr. Thomson Code(s): C61 - Malignant neoplasm of prostate Category: Medical Plan: Continue to follow-up with urology and PSA being tested (6) Tubular adenoma of colon: Comment: 07/2020 Dr. Abreu Code(s): D12.6 - Benign neoplasm of colon, unspecified Category: Medical Plan 1. 0: - Continue Hydrochlorothiazide and Metoprolol for management of Essential Hypertension. - Continue Simvastatin 40 mg at bedtime for Hypercholesterolemia; LDL and triglycerides are within target ranges. - The patient should remain under urology surveillance post-prostate cancer cryotherapy, monitoring PSA levels regularly. - Monitor anemia status; re-evaluate during the next lab check in three months. - Schedule a follow-up colonoscopy, as discussed for the management of tubular adenoma. - Advise continuation of current lifestyle modifications, including diet and exercise, and encourage adherence to medication regimens. - Discussed the importance of receiving vaccinations for COVID-19 and flu, especially considering ongoing public health concerns. - Ensure follow-up and periodic eye exams are performed at a comprehensive facility equipped for diabetic retinopathy screening. Orders: Orders Lipid Panel 3 Months E11.65 - Type 2 diabetes mellitus with hyperglycemia, E78.00 - Pure hypercholesterolemia, unspecified PSA,Total (Free>4and<10) 3 Months C61 - Malignant neoplasm of prostate Creatinine Urine 3 Months C61 - Malignant neoplasm of prostate, E11.65 - Type 2 diabetes mellitus with hyperglycemia Hemoglobin A1c 3 Months C61 - Malignant neoplasm of prostate AMB Hemoglobin A1c Today Z13.9 - Encounter for screening, unspecified Complete Blood Count Auto Diff 3 Months E11.65 - Type 2 diabetes mellitus with hyperglycemia Comprehensive Met. Panel 3 Months E11. - Type 2 diabetes mellitus with hyperglycemia Free T4 (Free Thyroxine) 3 Months E11.65 - Type 2 diabetes mellitus with hyperglycemia Thyroid Stimulating Hormone 3 Months E11.65 - Type 2 diabetes mellitus with hyperglycemia Vitamin B12 and Folate 3 Months E11.65 - Type 2 diabetes mellitus with hyperglycemia Microalbumin, Random (w Creat) 3 Months C61 - Malignant neoplasm of prostate, E11.65 - Type 2 diabetes mellitus with hyperglycemia Referrals Gastroenterology Referral D12.6 - Benign neoplasm of colon, unspecified
[2024-10-30 09:34] VITALS: BP 132/68; PULSE 64; O2SAT 98; BMI 27.1
== END 2024-10-30 10:12 | disposition home or self-care (01) ==
PROVIDERS: PCP Internal Medicine; Visit Provider Internal Medicine
DX: E11.65 Type 2 diabetes mellitus with hyperglycemia (principal); C61 Malignant neoplasm of prostate; E66.3 Overweight; Z68.27 Body mass index [BMI] 27.0-27.9, adult; I10 Essential (primary) hypertension; E78.00 Pure hypercholesterolemia, unspecified; D12.6 Benign neoplasm of colon, unspecified

== ENCOUNTER → 2024-10-30 09:28 | Outpatient (BNVA) | payer MEDICARE, SELFPAY | PROVIDERS: PCP Internal Medicine; Visit Provider Internal Medicine | DX: E11.65 Type 2 diabetes mellitus with hyperglycemia (principal); I10 Essential (primary) hypertension; E78.00 Pure hypercholesterolemia, unspecified; E66.3 Overweight; C61 Malignant neoplasm of prostate; D12.6 Benign neoplasm of colon, unspecified | CPT/HCPCS: 83036; 99212 ==

== ENCOUNTER 2024-11-08 10:07 | Outpatient (AMB) | payer MEDICARE, SELFPAY ==
--- NOTE | 2024-11-08 10:11 | A.OFFVIS_ITS ---
Intake Visit Reasons: 4m/PSA Intake Note: Pt presents to the office today for 4 month follow up/psa Allergies lisinopril Allergy (Unknown, Verified 11/08/24 10:12) anaphalyxis HPI Comments Details: Jan is a very pleasant 72-year-old male patient of Dr. Velez. He has a past medical history of ED, high cholesterol, hypertension, obesity, vitamin-D deficiency, and type 2 diabetes. - elevated PSA - prostate cancer PSA remains well-controlled after cryotherapy intervention Plan six-month follow-up repeat PSA and MRI PSA 07/11 0.5 04/10 Targeted prostate cryotherapy 02/08 PSA 2.2 Prostate MRI - confirms left base single legion Prostate cancer - 05/10 low volume, intermediate risk, clinically localized PSA at diagnosis 5.1, free% 7 Prostate volume 40 g All cores positive left side Histologic type: Acinar adenocarcinoma Histologic grade: Ricardo score: 3+3=6 (F), 3+4=7 (B,D) % of pattern 4: 20% % of pattern 5: N/A Tumor quantitation: Number cores positive: 3 % of tissue involved: 6% of all tissue Periprostatic fat inv.: Not identified Seminal vesicle inv.: Not identified Perineural inv.: Not identified LVI: Not identified Has been using 5 mg Cialis daily for prostate symptoms PFSH Medical History Obesity (BMI 30-39.9) Vitamin D deficiency Erectile dysfunction Type 2 diabetes mellitus with hyperglycemia History of dysphagia High cholesterol Hypertension Surgical History Hx of prostate biopsy Hx of tonsillectomy History of esophagogastroduodenoscopy (EGD) Hx of colonoscopy Family History Father Hypertension Mother Uterine cancer Sister In good health Brother No problems noted. Social History Housing: House Alcohol intake: current Alcohol intake frequency: a few times a week Comment: 4x a week2 drinks Patient Tobacco Use Status: Never used Tobacco Tobacco use type: Cigarette e-Cigarette/Vaping Use: Never Used Second Hand Smoke Exposure: Yes service: No Current occupational status: employed and retired Cognitive needs: No Hearing needs: No Vision needs: Yes (Glasses) Review of Systems Const Denies chills and Denies fever(s) Card Reports no additional complaints and Denies syncope Resp Denies cough GI Denies abdominal pain and Denies heartburn Reports as per HPI and Denies change in libido Neuro Denies syncope Psych Denies change in libido Endo Denies change in libido Physical Exam Const General: cooperative, healthy appearing, comfortable and no acute distress Orientation/consciousness: patient oriented x3 HEENT Face and sinus: Yes normal facial exam Mouth: moist mucous membranes Neck Neck: Yes normal visual inspection, Yes full ROM and Yes trachea midline Chest Chest palpation & inspection: normal inspection of the chest Resp Effort & Inspection: normal respiratory effort, able to speak in complete sentences and no respiratory distress GI Inspection: Yes normal to inspection Back/Spine/Pelvis Cervical Spine: normal cervical lordosis Thoracic/Lumbar Spine: thoracic and lumbar spine normal to inspection Skin General skin exam: no rashes or lesions noted Neuro General: patient oriented x3, gait normal, tone normal and moves all extremities Extrem General: Yes normal to inspection and Yes capillary refill normal Assessment & Plan Assessment & Plan (1) Prostate cancer: Comment: March 2024 transrectal ultrasound and prostate ultrasound guidance cryotherapy needle and probe placement transperineal ultrasound-guided prostate cryotherapy. Under Dr. Thomson Code(s): C61 - Malignant neoplasm of prostate Category: Medical (2) Erectile dysfunction: Code(s): N52.9 - Male erectile dysfunction, unspecified Category: Medical Plan Six-month follow-up Orders: Orders MR pelvis wo/w con 6 Months C61 - Malignant neoplasm of prostate Prostate Specific Antigen 6 Months C61 - Malignant neoplasm of prostate Patient Instructions: This note is constructed using voice recognition software. While every effort has been made to ensure accuracy metal tile lather errors may have been included. Imaging studies, laboratory and physical exam results were discussed and reviewed in detail. No major barriers to patient understanding were identified. An opportunity to ask questions regarding the treatment plan was provided. All questions were answered. The patient expressed understanding and agreement with the above treatment plan. The patient is aware they should contact our office by phone for worsening of their current condition or the appearance of new urologic symptoms. Compliance is encouraged with any medications and followup testing that is ordered. It is a privilege to participate in the urologic care of your patient. If you have any questions or concerns regarding treatment for the above conditions, or other urologic issues, please do not hesitate to contact me. The office telephone contact is [phone]. Sincerely, Dr Costa Thomson MD, [facility] - Urology Compassionate Specialist Care for the Genitourinary System Coding Level of Care Code Est Pt Level 3 (39361) Diagnoses Prostate cancer C61 Erectile dysfunction N52.9
--- OUTSIDE RECORDS SUMMARY | 2024-11-08 10:50 | XMS_ITS | Patient Health Record ---
Author Organization [facility] Address [address] [place] [address] Care Team Providers Care Pantograph Transferrer Name Role Phone Elvie Velez MD Primary Care Provider Kayden Velasquez [phone] REASON FOR REFERRAL No Information MEDICATIONS Medication SIG (Take, Route, Frequency, Duration) Notes Start Date End Date Status Metoprolol Succinate ER 100 MG 1 tablet Orally Once a day Active Simvastatin 40 MG 1 tablet in the even ing Orally Once a day Active Aspirin 81 MG 1 tablet Orally Once a day Active Vitamin D Active metFORMIN HCl Active Tylenol PRN Active IMMUNIZATIONS Vaccine Route Administration Date Status Comme nts Influenza Unknown 06/15/2020 Administered SOCIAL HISTORY Sex Assigned At : Social History Observation Description Sex Assigned At Unknown PROBLEMS Problem Type ICD Code Onset Dates Problem Status W/U Status Risk SNOMED Code Notes Problem Encounter for screening for malignant neoplasm of colon (Z12.11) Active confirmed 761786494 Problem Preprocedural examination (Z01.818) Active confirmed 877809241273947 Problem Long-term use of aspirin therapy (Z79.82) Active confirmed 147958299 Problem Hx of adenomatous colonic polyps (Z86.010) Active confirmed 668256485 PLAN OF TREATMENT Future Test Test Name Order Date COLONOSCOPY 01/21/2015 COLONOSCOPY 06/16/2020 Next Appt Details Provider Name:Kayden Leon , 03/06/2025 10:20:00 AM, [address], [address], [place], [address], Insurance Providers Payer Name Payer Address Payer Phone Subscriber Number Group Number Insured Name Patient Relationship to Insured Coverage Start Date Coverage End Date AARP Medicare Advantage Plan [address] [address] [place] [address] [id number] ANNELISE REARDON Self - patient is the insured MEDICAL (GENERAL) HISTORY Medical History History ICD Code Screening Colonoscopy 10-28-2004-only min imal internal hemorrhoids HTN History of dysphagia--EGD11999 with a balloon dilation of a distal esophageal ring by Dr. Fallon Denies [place],CVA,Lung disease,renal disease NIDDM Hyperlipidemia Colonoscopy in 03/2015-1 small tubular ad enoma removed Surgical History Surgery Date(Month/Year) Tonsillectomy
== END 2024-11-08 11:43 | disposition home or self-care (01) ==
PROVIDERS: PCP Internal Medicine; Visit Provider Urology
DX: C61 Malignant neoplasm of prostate (principal); N52.9 Male erectile dysfunction, unspecified
CPT/HCPCS: 99213

== ENCOUNTER → 2024-11-08 10:07 | Outpatient (BNVA) | payer MEDICARE, SELFPAY | PROVIDERS: PCP Internal Medicine; Visit Provider Urology | DX: C61 Malignant neoplasm of prostate (principal); N52.9 Male erectile dysfunction, unspecified | CPT/HCPCS: 99212 ==

== ENCOUNTER 2025-01-20 06:05 | Outpatient (REF) | payer MEDICARE, SELFPAY ==
[2025-01-20 06:28] LABS: MANUAL DIFF FLAG NO
[2025-01-20 07:31] LABS: Estimated Average Glucose 126 mg/dL; Hemoglobin A1C 147.3162 umol/L; Total Hemoglobin (HGBA1C) 3476.5056 umol/L
[2025-01-20 07:35] LABS: Basophils Percent Auto 0.3 % (0-2); Eosinophils Absolute Auto 0.2 X10*3/uL (0.0-0.4); Eosinophils Percent Auto 2.9 % (0-4); Hematocrit 39.3 % (42.0-52.0); Hemoglobin 13.5 g/dl (14.0-18.0); Imm Gran Abs Auto 0.01 X10*3/uL (0.00-0.03); Imm Gran Pct Auto 0.1 % (0.0-0.4); Lymphocytes Percent Auto 57.4 % (20-40); Mean Corpuscular HGB Conc 34.4 g/dl (31.0-36.0); Mean Corpuscular Volume 84.3 fL (80.0-98.0); Mean Platelet Volume 10.2 fL (9.4-12.4); Monocytes Absolute Auto 0.7 X10*3/uL (0.1-1.2); Monocytes Percent Auto 10.6 % (2-11); Neutrophils Percent Auto 28.7 % (45-73); Platelet Count 303 X10*3/uL (160-400); Red Blood Count 4.66 X10*6/uL (4.60-5.80); Red Cell Distribution Width 14.4 % (11.0-16.0)
[2025-01-20 07:46] LABS: Creatinine Urine 145.99 mg/dL; Microalbum/Creatinine Ratio Ur 8.2 ug/mg cr (<30)
[2025-01-20 07:52] LABS: Alanine Aminotransferase 27 U/L (0-40); Albumin Level 4.1 g/dL (3.5-5.0); Alkaline Phosphatase 78 U/L (39-117); Anion Gap 15 (12-20); Aspartate Amino Transferase 24 U/L (5-37); Bilirubin Total 0.5 mg/dL (0.0-1.0); Blood Urea Nitrogen 12 mg/dL (9-16); Calcium 9.6 mg/dL (8.4-10.2); Carbon Dioxide 24 mmol/L (22-29); Chloride 100 mmol/L (96-108); Cholesterol 120 mg/dL (<200); Estimated Glomerular Filt Rate > 60; Glucose Random 93 mg/dL (60-115); HDL Cholesterol 61 mg/dL (>40); LDL Cholesterol Calculated 43 mg/dL (<100); Potassium 3.3 mmol/L (3.3-5.1); Sodium 136 mmol/L (135-145); Total Protein 7.6 g/dL (6.5-8.0); Triglycerides 80 mg/dL (<150)
[2025-01-20 08:07] LABS: PSA,Total (Free>4and<10) 3.41 ng/mL (0.00-4.00)
[2025-01-20 08:08] LABS: Thyroid Stimulating Hormone 1.13 uIU/mL (0.32-4.0)
[2025-01-20 08:21] LABS: Vitamin B12 938 pg/mL (200-900)
== END 2025-01-20 06:06 | disposition home or self-care (01) ==
LOC: HO.LAB 06:05
PROVIDERS: PCP Internal Medicine; Visit Provider Internal Medicine
DX: E11.65 Type 2 diabetes mellitus with hyperglycemia (principal); E78.00 Pure hypercholesterolemia, unspecified; C61 Malignant neoplasm of prostate; Z12.5 Encounter for screening for malignant neoplasm of prostate
CPT/HCPCS: 36415; 80053; 80061; 82043; 82570; 82607; 82746; 83036; 84153; 84439; 84443; 85025

== ENCOUNTER 2025-02-19 08:36 | Outpatient (AMB) | payer MEDICARE, SELFPAY ==
[2025-02-19 08:47] VITALS: BP 120/82; PULSE 59; O2SAT 98; BMI 25.9
--- NOTE | 2025-02-19 08:47 | MHC.PC.OV ---
Vital Signs 02/19/25 08:47 Height 5 ft 8 in Weight 170 lb 4 oz BMI 25.9 BP 120/82 Blood Pressure Location Lt brachial Position Sitting Pulse 59 Pulse Source Pulse Oximeter Pulse Oximetry (%) 98 Oxygen Delivery Method Room Air Intake Visit Reasons: PE - see comments Duct Layer Required: No Accompanied by: Self / Same As Patient Allergies lisinopril Allergy (Unknown, Verified 02/19/25 08:48) anaphalyxis Medication List - Last Reconciled 02/19/25 by Elvie Velez MD cholecalciferol (vitamin D3) (Vitamin D3) 25 mcg PO DAILY cyanocobalamin (vitamin B-12) 1,000 mcg PO DAILY finasteride 5 mg PO DAILY 90 days hydrochlorothiazide 25 mg PO QAM metformin 500 mg PO BID 90 days metoprolol succinate ER 100 mg PO DAILY 90 days potassium chloride ER 20 mEq PO BID simvastatin 40 mg PO BEDTIME tadalafil (Cialis) 20 mg PO Q 2 days PRN; Tobacco use date assessed: 02/19/25 Fall risk assessment: No Falls in past year Last assessed Fall Risk: 02/19/25 Dental Screening Dental Screen Date: 02/19/25 Did you have a dental visit in the last 12 months?: No Did you have a dental problem in the last 6 months where you did not have access to dental care?: No Was dental information given to patient?: No HPI PE - see comments HPI Details colon Dr. Abreu March 06, 2025. April will see Dr. Thomson MR. Halle chest pain no exertion relationship but sore on palpation. occ diae [facility] Medical History Obesity (BMI 30-39.9) Vitamin D deficiency Erectile dysfunction Type 2 diabetes mellitus with hyperglycemia History of dysphagia High cholesterol Hypertension Surgical History Hx of prostate biopsy Hx of tonsillectomy History of esophagogastroduodenoscopy (EGD) Hx of colonoscopy Family History Father Hypertension Mother Uterine cancer Sister In good health Brother No problems noted. Social History (Updated 02/19/25 @ 09:18 by Elvie Velez MD) Housing: House Alcohol intake: current Alcohol intake frequency: a few times a week Comment: 2-3 x a week2 drinks Patient Tobacco Use Status: Never used Tobacco Tobacco use type: Cigarette e-Cigarette/Vaping Use: Never Used Second Hand Smoke Exposure: Yes service: No Current occupational status: employed and retired Cognitive needs: No Hearing needs: No Vision needs: Yes (Glasses) Questionnaire PHQ-9 Over the last 2 weeks, how often have you been bothered by any of the following problems? 1. Little interest or pleasure in doing things: not at all 2. Feeling down, depressed, or hopeless: not at all 3. Trouble falling or staying asleep, or sleeping too much: not at all 4. Feeling tired or having little energy: not at all 5. Poor appetite or overeating: not at all 6. Feeling bad about yourself - or that you are a failure or have let yourself or your family down: not at all 7. Trouble concentrating on things, such as reading the newspaper or watching television: not at all 8. Moving or speaking so slowly that other people could have noticed. Or the opposite - being so fidgety or restless that you have been moving around a lot more than usual: not at all 9. Thoughts that you would be better off or of hurting yourself in some way: not at all Total score: 0 Depression Screening Interpretation: Negative Depression Screening Done: Yes Source: Developed by Drs. Kayden Weir, Nicole Rodriguez, Gokul Biggs and colleagues, with an educational claire from [employer]. Thrive Questionnaire Date Thrive assessed: 02/19/25 I am a: Patient What is your living situation today?: I have a steady place to live Within the past 12 months, did the food you bought not last and you didn't have the money to get more?: Never true Within the past 12 months, did you worry whether your food would run out before you got money to buy more?: Never true Do you have trouble paying for medicines?: No Do you have trouble getting transportation to medical appointments?: No Do you have trouble paying your heating and electricity bill?: No Do you have trouble taking care of your child, family member or friend?: No Do you have trouble with day-to-day activities such as bathing, preparing meals, shopping, managing finances, etc.?: No Are you currently unemployed and looking for a job?: No Are you interested in more education?: No Currently or been in a relationship where the following occur: No concerns reported THRIVE Score: 0 AUDIT C Alcohol Use Questionnaire (AUDIT-C) 1. How often do you have a drink containing alcohol?: 2-4 times a month 2. How many drinks containing alcohol do you have on a typical day when you are drinking?: 1 or 2 3. How often do you have six or more drinks on one occasion?: Never Total Score: 2 MATT-7 AMB Questionnaire MATT-7 Date MATT - 7 assessed: 02/19/25 Feeling nervous, anxious, or on edge: 0 = Not at all Not being able to stop or control worryin = Not at all Worrying too much about different things: 0 = Not at all Trouble relaxin = Not at all Being so restless that it is hard to sit still: 0 = Not at all Becoming easily annoyed or irritable: 0 = Not at all Feeling afraid as if something awful might happen: 0 = Not at all Total MATT-7 score (0-4 normal; 5-9 mild; 10-14 moderate; 15-21 severe): 0 Source: Developed by Drs. Kayden Weir, Nicole Rodriguez, Gokul Biggs and colleagues, with an educational claire from [employer]. Review of Systems Const Denies poor appetite and Denies weakness Eyes Denies no additional complaints ENT Reports Normal hearing present, Denies dizziness, Denies nasal congestion, Denies tinnitus and Denies sore throat Card Denies chest pain, Denies syncope, Denies rapid heart rate and Denies dyspnea Resp Denies cough and Denies dyspnea GI Denies change in stool character, Reports constipation, Denies diarrhea, Denies nausea and Denies vomiting Denies dysuria and Denies urinary frequency Neuro Reports Normal hearing present, Denies confusion, Denies dizziness, Denies syncope and Denies weakness Psych Denies confusion Physical exam (Primary Care) Vital Signs: Last Vital Signs Pulse 59 02/19/25 08:47 BP 120/82 02/19/25 08:47 Pulse Ox 98 02/19/25 08:47 Oxygen Delivery Method Room Air 02/19/25 08:47 BMI result Body Mass Index 25.9 Tobacco/Smoking Status: Tobacco use Status Tobacco use date assessed 02/19/25 02/19/25 08:49 Patient Tobacco Use Status Never used Tobacco 02/19/25 08:49 Tobacco use type Cigarette 02/19/25 08:49 e-Cigarette/Vaping Use Never Used 02/19/25 08:49 PHQ-9: PHQ-9 Score PHQ-9: Total score 0 02/19/25 08:49 Depression Screening Interpretation: Negative Thrive Assessment: Date of Thrive Assessment Date Thrive assessed 02/19/25 02/19/25 08:49 Currently or been in a relationship where the following occur: No concerns reported Const General: No confusion Orientation/consciousness: No confusion HENMT Head: Yes normocephalic Ears: external ears normal and TM's normal bilaterally Face and sinus: Yes normal facial exam Mouth: moist mucous membranes Throat: Yes tonsils normal Eyes Conjunctivae: conjunctivae normal Pupils: Equal, round and reactive pupils present and Pupil accommodation reflex normal Direct Ophthalmoscopy: normal light reflex Neck Neck: No lymphadenopathy Thyroid: Thyroid normal Chest Chest palpation & inspection: normal inspection of the chest Resp Effort & Inspection: normal respiratory effort and no audible wheezes Auscultation: clear to auscultation bilaterally, no crackles, no wheezes and lung sounds not diminished Cardio Rate: regular rate Rhythm: regular rhythm Peripheral pulses: radial pulses present and dorsalis pedis present GI Other: colon test pending, pedal pulse and pin prick good Palpation (GI): no masses Auscultation: normal bowel sounds and normoactive bowel sounds Rectal Exam - Male: Yes deferred Male General Exam: Yes normal external exam Skin General skin exam: no rashes or lesions noted Rashes: no rashes Neuro General: No confusion Cranial nerves: Yes Equal, round and reactive pupils present and Yes Normal hearing present Cognition (Neuro): normal cognition Gait exam (Neuro): Normal gait present Motor exam (neuro): 5/5 motor strength present throughout Deep tendon reflexes (DTR's): Right brachioradialis reflex intensity grade: 2+, Left brachioradialis reflex intensity grade: 2+, Right patellar reflex intensity grade: 2+ and Left patellar reflex intensity grade: 2+ Extrem General: No edema Coding Level of Care Code Est Pt Prev Care >65y(74169) Diagnoses Annual physical exam Z00.00 Type 2 diabetes mellitus with hyperglycemia, without long-term current use of insulin E11.65 Diabetes mellitus manager intermediate insulin use: without intermediate use Essential hypertension I10 Hypertension type: essential hypertension High cholesterol E78.00 Prostate cancer C61 Tubular adenoma of colon D12.6 Assessment & Plan Assessment & Plan (1) Annual physical exam: Code(s): Z00.00 - Encounter for general adult medical examination without abnormal findings Category: Medical Plan: Patient is advised to eat healthy, keep well hydrated, keep active and have adequate sleep. (2) Type 2 diabetes mellitus with hyperglycemia: Comment: Dr. Coon 07/04/2022, Dr. Seay Code(s): E11.65 - Type 2 diabetes mellitus with hyperglycemia Category: Medical Qualifiers: Diabetes mellitus intermediate insulin use: without intermediate use Qualified Code(s): E11.65 - Type 2 diabetes mellitus with hyperglycemia Plan: Decrease the amount of carbohydrate intake, pasta, bread, rice and potatoes are all sugar and that is aside from all the sweet stuff, remember that fruits are good but they are Sweet also. Hemoglobin A1c goal of less than 7.0. Patient on metformin 500 mg twice a day (3) Hypertension: Code(s): I10 - Essential (primary) hypertension Category: Medical Qualifiers: Hypertension type: essential hypertension Qualified Code(s): I10 - Essential (primary) hypertension Plan: Continue with blood pressure medication. Decrease salt intake and exercise patient on hydrochlorothiazide metoprolol (4) High cholesterol: Code(s): E78.00 - Pure hypercholesterolemia, unspecified Category: Medical Plan: Avoid fried foods, chicken skin, eggs, butter margarine, pastries and meat. Be it pork or beef they have a lot of cholesterol LDL goal of less than 100 and triglyceride of less than 150 patient takes simvastatin 40 mg once a day (5) Prostate cancer: Comment: March 2024 transrectal ultrasound and prostate ultrasound guidance cryotherapy needle and probe placement transperineal ultrasound-guided prostate cryotherapy. Under Dr. Thomson Code(s): C61 - Malignant neoplasm of prostate Category: Medical Plan: Patient continues to follow-up with urology and the on surveillance with MR and PSA (6) Tubular adenoma of colon: Comment: 07/2020 Dr. Abreu Code(s): D12.6 - Benign neoplasm of colon, unspecified Category: Medical Plan: Patient is reminded about colonoscopy Plan History of Present Illness The patient is a 74 year old male presenting for a physical exam. He has a documented history of controlled diabetes mellitus, essential hypertension, and hypercholesterolemia. He recently experienced an 8-pound weight loss. He has a history of prostate cancer and is currently on active surveillance following a visit to the urologist, with an MRI and PSA test planned for follow-up. His last PSA reading was 3.41. The patient also has a past history of tubular adenoma from 2019. Recent blood work from January 20 shows resolving mild anemia, with hemoglobin at 13.5. Potassium levels have been noted as low, possibly due to his medication regimen including hydrochlorothiazide. His kidney function, electrolytes, and liver function tests remain within normal limits. The patient reports episodes of muscular pain unassociated with specific activities. He has observed a rash and denies any symptoms of shortness of breath or exertional chest pain. Previously, he was on finasteride, which has been discontinued as per his urologist's recommendation. His active medications now include metformin, simvastatin, and tadalafil. He has not experienced any new symptoms or undergone any surgical procedures recently. Despite having reduced his alcohol consumption to a few times a week, he remains aware of its effects. He denies tobacco use, dizziness, or gastrointestinal issues, though reports occasional diarrhea, possibly linked to metformin use. He maintains physical activity by mowing his lawn regularly and prioritizes his wellness. Health Maintenance - Weight management acknowledged, with reported 8-pound weight loss. - PSA monitoring for prostate cancer, with next test scheduled for April. - MRI of the pelvis scheduled for April 2025. - Follow-up with urology is ongoing. - Reminded of a colonoscopy, scheduled for March 06, 2025, with Dr. Long. - Reviewed kidney function; GFR is good. - Discussed importance of maintaining hydration and healthy diet. - Regular physical activity encouraged, such as mowing lawn and staying active. - Reminder to reduce alcohol consumption further, given risk factors. - Advised on metformin-induced diarrhea risk; patient tolerating well currently. - Discussed potassium monitoring due to thiazide use. - Reviewed benefits of potential shingles vaccination, though patient undecided. Social History - Alcohol consumption: reduced to a couple of times per week, primarily beer. - Denies tobacco use. - Actively maintains a physical lifestyle by mowing the lawn and caring for personal health. - Has access to healthcare and scheduled visits with urology and for colonoscopy. - Acknowledges importance of hydration and healthy diet to manage diabetes and cardiovascular risk. Review of Systems - General: Reports 8-pound weight loss. - Cardiovascular: Denies shortness of breath, exertional pain. - Gastrointestinal: Reports occasional diarrhea. - Genitourinary: Reports low nocturnal urination frequency. - Musculoskeletal: Reports muscular pain unassociated with activity. - Dermatological: Reports rash. Physical Exam General: Cooperative, healthy appearing, comfortable, no acute distress and well developed Orientation: Patient oriented x3 Limitations: No limitations Head: Normal to inspection Ears: Hearing grossly normal bilaterally Nose: Normal external nose present Face and sinus: Normal facial exam Eyes: Appearance normal, both eyes and all related structures Neck: Normal visual inspection and Yes full ROM Respiratory: Normal respiratory effort and able to speak in complete sentences. Clear to auscultation bilaterally Cardiovascular: Regular rate and rhythm. Normal S1 and S2 GI: Normal to inspection. Soft to palpation and nontender Skin: No rashes or lesions noted, except for a fungal infection in the toes Neuro: Patient oriented x3 Extremities: Normal to inspection, except for a fungal infection in the toes Results - Labs: Hemoglobin 13.5, resolving mild anemia; low potassium 3.3; PSA 3.41. - Metabolic: Blood sugar 93 mg/dL; Hemoglobin A1c 6.0; LDL cholesterol 43. - Kidney Function: GFR within normal limits; creatinine 1.12. - Liver Function: Within normal limits. Plan 1. 0, so metformin will remain the same. Blood pressure is managed with hydrochlorothiazide and metoprolol, though low potassium requires monitoring. Hypercholesterolemia is stable under simvastatin, with LDL below target. Surveillance for prostate cancer continues with scheduled MRI and PSA check in April, while erectile dysfunction management is supported with tadalafil. We're watching his mild anemia and rash closely. A colonoscopy is planned for February with Dr. Long, given the history of tubular adenoma. Alcohol and activity levels were reviewed to support ongoing wellness.: Patient was informed and verbally consented to the use of an ambient scribe for clinic note documentation during this visit. Discussion Notes I reviewed my management plan with the patient, emphasizing the controlled state of his diabetes with the current medication regimen, and ensured his understanding of potential low potassium causes and future management adjustments if necessary. The importance of routine monitoring of his prostate cancer through scheduled MRI and PSA was reiterated along with the continuation of his current erectile dysfunction treatment. I discussed the graduating resolution of his anemia, advising that any changes in his rash warrant attention. The historical context of his tubular adenoma was revisited with a reminder of his February colonoscopy. Lifestyle improvements, including the benefits of activity and alcohol reduction, were highlighted to enhance his overall health risk management strategy. Patient Instructions - Continue taking your medications as prescribed: metformin, simvastatin, metoprolol, and tadalafil. - Return for your follow-up MRI and PSA check in April 2025. - Maintain a healthy diet and drink plenty of water. - Stay active by mowing the lawn and engaging in light physical activities. - Reduce your alcohol consumption to lower your health risks. - Monitor for any changes in your rash and report any significant changes. - Follow up with your scheduled colonoscopy in February. - Contact me if diarrhea becomes more frequent or severe. - Stay on top of blood work before your next appointment. Orders: Orders Thyroid Stimulating Hormone 6 Months E11.65 - Type 2 diabetes mellitus with hyperglycemia Reticulocyte Count 6 Months E11. - Type 2 diabetes mellitus with hyperglycemia Vitamin B12 and Folate 6 Months E11. - Type 2 diabetes mellitus with hyperglycemia Lipid Panel 6 Months E11. - Type 2 diabetes mellitus with hyperglycemia, E78.00 - Pure hypercholesterolemia, unspecified Complete Blood Count Auto Diff 6 Months E11. - Type 2 diabetes mellitus with hyperglycemia Comprehensive Met. Panel 6 Months E11. - Type 2 diabetes mellitus with hyperglycemia Free T4 (Free Thyroxine) 6 Months E11.65 - Type 2 diabetes mellitus with hyperglycemia Hemoglobin A1c 6 Months E11.65 - Type 2 diabetes mellitus with hyperglycemia Ferritin 6 Months E11.65 - Type 2 diabetes mellitus with hyperglycemia IRON PROFILE 6 Months E11.65 - Type 2 diabetes mellitus with hyperglycemia
--- OUTSIDE RECORDS SUMMARY | 2025-02-19 08:54 | XMS_ITS | Patient Health Record ---
[facility] Address [address] [place] [address] Care Team Providers Care Management Recruiter Name Role Phone Elvie Velez MD Primary Care Provider Kayden Velasquez [phone] Reason For Referral No Information Medications Medication SIG (Take, Route, Frequency, Duration) Notes Start Date End Date Status Metoprolol Succinate ER 100 MG 1 tablet Orally Once a day Active Simvastatin 40 MG 1 tablet in the even ing Orally Once a day Active Aspirin 81 MG 1 tablet Orally Once a day Active Vitamin D Active metFORMIN HCl Active Tylenol PRN Active Immunizations Vaccine Route Administration Date Status Comme nts Influenza Unknown 06/15/2020 Administered Problems Problem Type SNOMED Code ICD Code Onset Dates Problem Status W/U Status Risk Notes Problem [id number] Encounter for screening for malignant neoplasm of colon (Z12.11) Active confirmed Problem [id number] Preprocedural examination (Z01.818) Active confirmed Problem 967004407 Long-term use of aspirin therapy (Z79.82) Active confirmed Problem 267828231 Hx of adenomatou s colonic polyps (Z86.010) Active confirmed Plan Of Treatment Future Test Test Name Order Date COLONOSCOPY 01/21/2015 COLONOSCOPY 06/16/2020 Next Appt Details Provider Name:Kayden Leon , 03/06/2025 10:20:00 AM, [address], [address], [place], [address], Insurance Providers Payer Name Payer Address Payer Phone Subscriber Number Group Number Insured Name Patient Relationship to Insured Coverage Start Date Coverage End Date [employer] Medicare Advantage Plan [address] [address] [place] [address] [id number] ANNELISE REARDON Self - patient is the insured Medical (General) History Medical History History ICD Code Screening Colonoscopy 10-28-2004-only min imal internal hemorrhoids HTN History of dysphagia--EGD11999 with a balloon dilation of a distal esophageal ring by Dr. Fallon Denies [place],CVA,Lung disease,renal disease NIDDM Hyperlipidemia Colonoscopy in 03/2015-1 small tubular ad enoma removed Surgical History Surgery Date(Month/Year) Tonsillectomy
== END 2025-02-19 09:41 | disposition home or self-care (01) ==
LOC: HO.HMCH 08:44
PROVIDERS: PCP Internal Medicine; Visit Provider Internal Medicine
DX: Z00.00 Encounter for general adult medical examination without abnormal findings (principal); E11.65 Type 2 diabetes mellitus with hyperglycemia; C61 Malignant neoplasm of prostate; I10 Essential (primary) hypertension; E78.00 Pure hypercholesterolemia, unspecified; D12.6 Benign neoplasm of colon, unspecified

== ENCOUNTER → 2025-02-19 08:36 | Outpatient (BNVA) | payer MEDICARE, SELFPAY | PROVIDERS: PCP Internal Medicine; Visit Provider Internal Medicine | DX: Z00.00 Encounter for general adult medical examination without abnormal findings (principal); E11.65 Type 2 diabetes mellitus with hyperglycemia; I10 Essential (primary) hypertension; E78.00 Pure hypercholesterolemia, unspecified; C61 Malignant neoplasm of prostate; D12.6 Benign neoplasm of colon, unspecified | CPT/HCPCS: 99397 ==

== ENCOUNTER 2025-04-18 06:02 | Outpatient (REF) | payer MEDICARE, SELFPAY ==
[2025-04-18 08:03] LABS: Prostate Specific Antigen 4.32 ng/mL (<0.05-4.0)
== END 2025-04-18 06:03 | disposition home or self-care (01) ==
LOC: HO.LAB 06:02
PROVIDERS: PCP Internal Medicine; Visit Provider Urology
DX: C61 Malignant neoplasm of prostate (principal)
CPT/HCPCS: 36415; 84153

== ENCOUNTER 2025-05-06 08:08 | Outpatient (REF) | payer MEDICARE, SELFPAY ==
--- NOTE | ~2025-05-06 | MR_ITS ---
EXAMINATION: MR PROSTATE WITHOUT THEN WITH IV CONTRAST, MR EXAM UNLISTED HISTORY: C61 - Malignant neoplasm of prostate. Status post cryotherapy. TECHNIQUE: 1.5T body coil survey of the pelvis was performed. Phase array coil imaging of the prostate was performed in multiplanar high resolution axial, coronal, sagittal fast spin echo T2 and axial T1 weighted imaging sequences. Axial diffusion imaging at intermediate and high field performed with ADC mapping. Next, 7.5 mL Gadavist was given by intravenous infusion, and dynamic axial imaging performed. 3-D reconstructions and post-processing were performed on an independent workstation by the radiologist for biopsy planning using image fusion. COMPARISON: There are no prior studies available for comparison. CLINICAL DATA: Most recent PSA: 4.32 ng/mL on 04/18/2025. PSA Density: 0.16 ng/mL squared Prostate Biopsy: Positive biopsy on 05/18/2023 with a Ricardo score 3+4 = 7. FINDINGS: Prostate size: 4.1 x 4.6 x 2.7 cm. Calculated prostate volume is 26.5 mL. Hemorrhage: None. Transitional Zone: There is mild heterogeneous nodular hypertrophy of the transitional zone. Peripheral Zone: The peripheral zone demonstrates diffusely decreased T2 signal intensity which may be secondary to prior cryoablation. The diffusion-weighted images are degraded by artifact. There is diffuse mild decreased signal intensity on ADC map involving the entire peripheral zone. No definite increased signal on diffusion-weighted images. An area of interest is noted as described below: Area of interest #1: Location: Right lateral peripheral zone at the apex measuring approximately 12 mm in size (series 7, image [id number]). DWI PI-RADS v2.1 score: 3 T2 PI-RADS v2.1 score: 3 DCE PI-RADS v2.1 score: + Overall PI-RADS v2.1 score: 4 Capsular contact: yes Extracapsular extension: None Seminal vesicle invasion: None Neurovascular bundle involvement: None Seminal Vesicles/Ejaculatory Ducts: Symmetric and normal in signal and caliber. Pelvic Lymph Nodes: No obturator or internal iliac lymph nodes meeting size criteria for adenopathy. Marrow Signal: Normal marrow signal and enhancement without focal lesion identified. MR/MR Prostate wo/w con IMPRESSION: Diffusely decreased T2 signal intensity and decreased signal and intensity on diffusion-weighted images throughout the peripheral zone which may be related to prior cryoablation. Diffusion-weighted images are limited by artifact. There is an area of enhancement in the right lateral peripheral zone at the apex suggestive of clinically significant prostate carcinoma. PI-RADS 4: High (clinically significant cancer is likely to be present) PI-RADS Assessment Categories PI-RADS 1: Very low (clinically significant cancer is highly unlikely to be present) PI-RADS 2: Low (clinically significant cancer is unlikely to be present) PI-RADS 3: Intermediate (the presence of clinically significant cancer is equivocal) PI-RADS 4: High (clinically significant cancer is likely to be present) PI-RADS 5: Very high (clinically significant cancer is highly likely to be present) [employer]. MR Prostate Imaging Reporting and Data System version 2.1. [email or web address] Electronically signed by: Kayden Brandt MD 05/06/2025 10:37 AM EDT
== END 2025-05-06 08:09 | disposition home or self-care (01) ==
LOC: HO.MRI 08:08
PROVIDERS: PCP Internal Medicine; Visit Provider Urology
DX: C61 Malignant neoplasm of prostate (principal)
CPT/HCPCS: 72197; 76377; A9585

== ENCOUNTER → 2025-05-06 08:08 | Outpatient (BNV) | payer MEDICARE, SELFPAY | PROVIDERS: PCP Internal Medicine; Visit Provider Radiology Diagnostic Radiology | DX: C61 Malignant neoplasm of prostate (principal) | CPT/HCPCS: 72197; 76377 ==

== ENCOUNTER 2025-05-15 12:33 | Outpatient (AMB) | payer MEDICARE, SELFPAY ==
--- NOTE | 2025-05-15 12:41 | A.OFFVIS_ITS ---
Intake Visit Reasons: 6m/MRI/PSA Intake Note: Pt presents to the office today for follow up Urology meds: VITB-12, Finasteride,Potassium, Tadlafil Blood Thinner: None Labs done 04/18/2025: PSA 4.32 Imaging done 05/06/2025: MRI Cook Dessert Required: No Accompanied by: Self / Same As Patient Allergies lisinopril Allergy (Unknown, Verified 05/15/25 12:42) anaphalyxis HPI Comments Details: Jan is a very pleasant 72-year-old male patient of Dr. Velez. He has a past medical history of ED, high cholesterol, hypertension, obesity, vitamin-D deficiency, and type 2 diabetes. - elevated PSA - prostate cancer PSA 07/11 0.5, 05/12 4.3 Repeat prostate MRI New prostate lesion right side Is due for targeted biopsy 05/12 Diffusely decreased T2 signal intensity and decreased signal and intensity on diffusion-weighted images throughout the peripheral zone which may be related to prior cryoablation. Diffusion-weighted images are limited by artifact. There is an area of enhancement in the right lateral peripheral zone at the apex suggestive of clinically significant prostate carcinoma 04/10 Targeted prostate cryotherapy 02/08 PSA 2.2 Prostate MRI - confirms left base single legion Prostate cancer - 05/10 low volume, intermediate risk, clinically localized PSA at diagnosis 5.1, free% 7 Prostate volume 40 g All cores positive left side Histologic type: Acinar adenocarcinoma Histologic grade: [place] score: 3+3=6 (F), 3+4=7 (B,D) % of pattern 4: 20% % of pattern 5: N/A Tumor quantitation: Number cores positive: 3 % of tissue involved: 6% of all tissue Periprostatic fat inv.: Not identified Seminal vesicle inv.: Not identified Perineural inv.: Not identified LVI: Not identified Has been using 5 mg Cialis daily for prostate symptoms PFSH Medical History Obesity (BMI 30-39.9) Vitamin D deficiency Erectile dysfunction Type 2 diabetes mellitus with hyperglycemia History of dysphagia High cholesterol Hypertension Surgical History Hx of prostate biopsy Hx of tonsillectomy History of esophagogastroduodenoscopy (EGD) Hx of colonoscopy Family History Father Hypertension Mother Uterine cancer Sister In good health Brother No problems noted. Social History (Updated 02/19/25 @ 09:18 by Elvie Velez MD) Housing: House Alcohol intake: current Alcohol intake frequency: a few times a week Comment: 2-3 x a week2 drinks Patient Tobacco Use Status: Never used Tobacco Tobacco use type: Cigarette e-Cigarette/Vaping Use: Never Used Second Hand Smoke Exposure: Yes service: No Current occupational status: employed and retired Cognitive needs: No Hearing needs: No Vision needs: Yes (Glasses) Review of Systems Const Denies chills and Denies fever(s) Card Reports no additional complaints and Denies syncope Resp Denies cough GI Denies abdominal pain and Denies heartburn Reports as per HPI and Denies change in libido Neuro Denies syncope Psych Denies change in libido Endo Denies change in libido Physical Exam Const General: cooperative, healthy appearing, comfortable and no acute distress Orientation/consciousness: patient oriented x3 HEENT Face and sinus: Yes normal facial exam Mouth: moist mucous membranes Neck Neck: Yes normal visual inspection, Yes full ROM and Yes trachea midline Chest Chest palpation & inspection: normal inspection of the chest Resp Effort & Inspection: normal respiratory effort, able to speak in complete sentences and no respiratory distress GI Inspection: Yes normal to inspection Back/Spine/Pelvis Cervical Spine: normal cervical lordosis Thoracic/Lumbar Spine: thoracic and lumbar spine normal to inspection Skin General skin exam: no rashes or lesions noted Neuro General: patient oriented x3, gait normal, tone normal and moves all extremities Extrem General: Yes normal to inspection and Yes capillary refill normal Assessment & Plan Assessment & Plan (1) Prostate cancer: Comment: March 2024 transrectal ultrasound and prostate ultrasound guidance cryotherapy needle and probe placement transperineal ultrasound-guided prostate cryotherapy. Under Dr. Thomson Code(s): C61 - Malignant neoplasm of prostate Category: Medical Plan Targeted prostate biopsy Risks, benefits and alternatives to therapy were discussed. These include but are not limited to infection, bleeding, damage to local organs and tissues, need for further interventions. Anesthetic risks regarding cardiac arrhythmia, blood clots, and potential mortality were discussed. The patient understands the typical recovery time and the outpatient nature of the procedure. After consideration of these risks the patient gives full in formed consent and they wish to move ahead with the procedure. Patient Instructions: This note is constructed using voice recognition software. While every effort has been made to ensure accuracy senior net software engineer errors may have been included. Imaging studies, laboratory and physical exam results were discussed and reviewed in detail. No major barriers to patient understanding were identified. An opportunity to ask questions regarding the treatment plan was provided. All questions were answered. The patient expressed understanding and agreement with the above treatment plan. The patient is aware they should contact our office by phone for worsening of their current condition or the appearance of new urologic symptoms. Compliance is encouraged with any medications and followup testing that is ordered. It is a privilege to participate in the urologic care of your patient. If you have any questions or concerns regarding treatment for the above conditions, or other urologic issues, please do not hesitate to contact me. The office telephone contact is [phone]. Sincerely, Dr Costa Thomson MD, [facility] - Urology Compassionate Specialist Care for the Genitourinary System Coding Level of Care Code Est Pt Level 4 (72032) Diagnoses Prostate cancer C61
== END 2025-05-15 13:44 | disposition home or self-care (01) ==
LOC: HO.HUSH 12:33
PROVIDERS: PCP Internal Medicine; Visit Provider Urology
DX: C61 Malignant neoplasm of prostate (principal)
CPT/HCPCS: 99214

== ENCOUNTER → 2025-05-15 12:33 | Outpatient (BNVA) | payer MEDICARE, SELFPAY | PROVIDERS: PCP Internal Medicine; Visit Provider Urology | DX: C61 Malignant neoplasm of prostate (principal) | CPT/HCPCS: 99212 ==

== ENCOUNTER 2025-06-09 09:43 | Day surgery (SDC) | payer MEDICARE, SELFPAY ==
--- NOTE | 2025-06-05 12:56 | HO.ANESPROP2 ---
Documented by User: Nicki Marx NP 06/05/25 12:57 HPI - Anesthesia Eval Consult details Narrative: 74yo M for Colonoscopy [facility] Active Problems Active Problems: All Active Problems Tubular adenoma of colon (Acute) Cataract, right eye (Acute) Prostate cancer (Acute) Prostate enlargement (Acute) Lower urinary tract symptoms (Acute) Urinary urgency (Acute) Urinary frequency (Acute) Nocturia (Acute) Overweight (BMI 25.0-29.9) (Acute) PSA elevation (Acute) Hospital discharge follow-up (Acute) Preop exam for internal medicine (Acute) Onychomycosis (Acute) Annual physical exam (Acute) Erectile dysfunction (Acute) High cholesterol (Acute) Hypertension (Acute) Type 2 diabetes mellitus with hyperglycemia (Acute) Past Medical History Medical History Obesity (BMI 30-39.9) Vitamin D deficiency Erectile dysfunction Type 2 diabetes mellitus with hyperglycemia History of dysphagia High cholesterol Hypertension Family History Family History Father Hypertension Mother Uterine cancer Sister In good health Brother No problems noted. Family history of problems with anesthesia: No Surgical History Surgical History History of prostate surgery Hx of prostate biopsy Hx of tonsillectomy History of esophagogastroduodenoscopy (EGD) Hx of colonoscopy History of Problems with Anesthesia: No Social History Social History Housing: House Alcohol intake: current Alcohol intake frequency: a few times a week Comment: 2-3 x a week2 drinks Patient Tobacco Use Status: Never used Tobacco Tobacco use type: Cigarette e-Cigarette/Vaping Use: Never Used Second Hand Smoke Exposure: Yes service: No Current occupational status: employed and retired Cognitive needs: No Hearing needs: No Vision needs: Yes (Glasses) Meds Allergies Allergy/AdvReac Type Severity Reaction Status Date / Time lisinopril Allergy Severe anaphalyxis Verified 06/05/25 14:49 Home Medications ?Medication ?Instructions ?Recorded ?Confirmed ?Last Taken ?Type cholecalciferol (vitamin D3) 25 25 mcg PO DAILY 07/23/20 06/05/25 Unknown History mcg (1,000 unit) capsule (Vitamin D3) Exam Pertinent Lab Results Pertinent Lab Results: Laboratory Tests 01/20/25 06:25 WBC 7.0 Hgb 13.5 L Hct 39.3 L Plt Count 303 Sodium 136 Potassium 3.3 Chloride 100 Carbon Dioxide 24 BUN 12 Creatinine 1.12 Assessment and Plan Assessment Anesthesia Assessment: Chart Reviewed Final Anesthetic Review Family History of Problems with Anesthesia: No History of Problems with Anesthesia: No Documented by User: Stephanie Eddy MD 06/09/25 08:43 PMFSH Past Medical History Medical History Obesity (BMI 30-39.9) Vitamin D deficiency Erectile dysfunction Type 2 diabetes mellitus with hyperglycemia History of dysphagia High cholesterol Hypertension Family History Family History Father Hypertension Mother Uterine cancer Sister In good health Brother No problems noted. Surgical History Surgical History History of prostate surgery Hx of prostate biopsy Hx of tonsillectomy History of esophagogastroduodenoscopy (EGD) Hx of colonoscopy Social History Social History Housing: House Alcohol intake: current Alcohol intake frequency: a few times a week Comment: 2-3 x a week2 drinks Patient Tobacco Use Status: Never used Tobacco Tobacco use type: Cigarette e-Cigarette/Vaping Use: Never Used Second Hand Smoke Exposure: Yes service: No Current occupational status: employed and retired Cognitive needs: No Hearing needs: No Vision needs: Yes (Glasses) Meds Allergies Allergy/AdvReac Type Severity Reaction Status Date / Time lisinopril Allergy Severe anaphalyxis Verified 06/05/25 14:49 Home Medications ?Medication ?Instructions ?Recorded ?Confirmed ?Last Taken ?Type cholecalciferol (vitamin D3) 25 25 mcg PO DAILY 07/23/20 06/05/25 Unknown History mcg (1,000 unit) capsule (Vitamin D3) Exam Airway Mallampati Class: III TM Dist: <=3cm Neck ROM: Limited Heart: rrr Lungs: cta Assessment and Plan Assessment Anesthesia Assessment: Anesthesia Plan Discussed Final Anesthetic Review NPO: Yes ASA Class: II Final Preanesthetic Review: No Changes in Pt Med Stat, Meds/Allgs Chart Reviewed, Consent Obtained/Reviewed and Anes Risks/Benef Reviewed Patient Risk: Intermediate Procedure Risk: Low Anesthetic Plan Anesthetic Plan: MAC: Disposition: Standard PACU
[2025-06-05 14:52] VITALS: BMI 26.1
[2025-06-09 09:52] VITALS: BMI 24.7
[2025-06-09 10:00] VITALS: BP 139/72; PULSE 52; RESP 16; TEMP 36.2; O2SAT 100
[2025-06-09 10:15] LABS: Glucose, Whole Blood 93 mg/dL (60-115)
[2025-06-09] MEDS: Lactated Ringers 1,000 ML 100 ML IVCONT (10:22)
[2025-06-09 10:23] VITALS: PULSE 57
[2025-06-09 12:27] VITALS: BP 109/69; PULSE 60; RESP 15; TEMP 36.1; O2SAT 100
--- NOTE | 2025-06-09 12:37 | P.BOP_ITS ---
Brief Operative Note Date of Service: 06/09/25 Pre-op diagnosis: Screening Post-op diagnosis: other (Diverticulosis) Procedure: Colonoscopy to the cecum and TI Surgeon: Kayden Leon MD Anesthesia: MAC Was an Local City Driver used for this Procedure?: No Estimated blood loss (mL): 0 Pathology: none sent Condition: stable Disposition: PACU
[2025-06-09 12:42] VITALS: BP 109/69; PULSE 57; RESP 16; TEMP 36.1; O2SAT 100
--- NOTE | 2025-06-09 23:42 | OP_ITS ---
DATE OF SERVICE: 06/09/2025 SURGEON: Kayden Leon MD INDICATIONS: The patient presents for evaluation of colorectal cancer screening. Full consent has been obtained from him for this, including risks of bleeding and perforation. PREOPERATIVE DIAGNOSIS: POSTOPERATIVE DIAGNOSIS: PROCEDURE PERFORMED: Colonoscopy to the cecum and terminal ileum. ESTIMATED BLOOD LOSS: COMPLICATIONS: ANESTHESIA: Monitored anesthesia care. ASSISTANTS: SPECIMENS: PREOPERATIVE DIAGNOSES: Colorectal cancer screening and personal history of tubular adenoma of the colon. POSTOPERATIVE DIAGNOSES: Colorectal cancer screening and personal history of tubular adenoma of the colon, diverticulosis, internal hemorrhoids, limited bowel prep. DESCRIPTION OF PROCEDURE: The patient was placed in the left lateral decubitus position. The digital rectal exam revealed no abnormalities. The Olympus video pediatric colonoscope was entered into the rectum and advanced easily to the cecum. Once in the cecum, I did identify cecal pouch. Visualization was somewhat limited due to some retained stool despite a lot of irrigation and suctioning. However, the majority of the cecum including the appendiceal orifice was visualized and appeared normal. The terminal ileum was cannulated and appeared normal. The scope was withdrawn back into the cecum. The ileocecal valve appeared normal. The scope was slowly withdrawn, assessing all mucosal surfaces carefully. Preparation throughout the colon was good for the most part but there was still some residual solid stool which was attempted to be irrigated as best as possible, but was not complete. I did not visualize any polyps, colitis, nor angiodysplasia. There was a mild amount of sigmoid diverticulosis. In the rectum, scope was retroflexed, visualizing internal hemorrhoids, but no other pathology. The rectal mucosa appeared normal. Scope was straightened and withdrawn from the patient. He tolerated the procedure well and was returned to the recovery area in stable condition. IMPRESSION: 1. Diverticulosis. 2. Internal hemorrhoids. 3. Limited prep. PLAN: Given the somewhat limited prep and his previous history of tubular adenoma, I would recommend that he obtain a Cologuard test through his primary care provider. If this is negative, then I do not think he would need any further screening, given the otherwise negative exam. However, if the Cologuard test is positive, he would then need to have a repeat colonoscopy with a better clean out. He has been given instructions in this regard. MD IVAN Ross/MORIS / [id number] BITA
== END 2025-06-09 13:23 | disposition home or self-care (01) ==
PROVIDERS: PCP Internal Medicine; Visit Provider Internal Medicine
PROC: 0DJD8ZZ Inspection of Lower Intestinal Tract, Via Natural or Artificial Opening Endoscopic (ICD-10-PCS; CPT 45378; principal; 2025-06-09 10:50)
DX: Z12.11 Encounter for screening for malignant neoplasm of colon (principal); Z86.0101 Personal history of adenomatous and serrated colon polyps; K57.30 Diverticulosis of large intestine without perforation or abscess without bleeding; K64.8 Other hemorrhoids; C61 Malignant neoplasm of prostate; I10 Essential (primary) hypertension; E78.5 Hyperlipidemia, unspecified; E11.9 Type 2 diabetes mellitus without complications; Z79.84 Long term (current) use of oral hypoglycemic drugs; Z79.899 Other long term (current) drug therapy
CPT/HCPCS: G0105; 82947; J2704

== ENCOUNTER 2025-07-14 09:24 | Day surgery (SDC) | payer MEDICARE, SELFPAY ==
--- NOTE | 2025-07-09 14:29 | HO.ANESPROP2 ---
Documented by User: Kesha Jewell NP 07/09/25 14:29 HPI - Anesthesia Eval Consult details Narrative: 74 yr old male for Targeted Prostate Needle Biopsy PMFSH Active Problems Active Problems: All Active Problems Tubular adenoma of colon (Acute) Cataract, right eye (Acute) Prostate cancer (Acute) Prostate enlargement (Acute) Lower urinary tract symptoms (Acute) Urinary urgency (Acute) Urinary frequency (Acute) Nocturia (Acute) Overweight (BMI 25.0-29.9) (Acute) PSA elevation (Acute) Hospital discharge follow-up (Acute) Preop exam for internal medicine (Acute) Onychomycosis (Acute) Annual physical exam (Acute) Erectile dysfunction (Acute) High cholesterol (Acute) Hypertension (Acute) Type 2 diabetes mellitus with hyperglycemia (Acute) Past Medical History Medical History (Updated 06/09/25 @ 09:51 by Sarah Miller RN) Bilateral cataracts Obesity (BMI 30-39.9) Vitamin D deficiency Erectile dysfunction Type 2 diabetes mellitus with hyperglycemia History of dysphagia High cholesterol Hypertension Family History Family History Father Hypertension Mother Uterine cancer Sister In good health Brother No problems noted. Family history of problems with anesthesia: No Surgical History Surgical History (Updated 07/10/25 @ 09:52 by Roselia Vences RN) History of prostate surgery Hx of prostate biopsy Hx of tonsillectomy History of esophagogastroduodenoscopy (EGD) Hx of colonoscopy (06/09/25) History of Problems with Anesthesia: No Social History Social History Housing: House Are you a primary pet caretaker to a significant other at home: No Do you presently have visiting nurse or other home services: No Alcohol intake: current Alcohol intake frequency: holidays/special occasions only Comment: 2-3 x a week2 drinks Patient Tobacco Use Status: Former Tobacco user Tobacco use type: Cigarette e-Cigarette/Vaping Use: Never Used Second Hand Smoke Exposure: No Use of substances other than those prescribed or required for medical reasons: No Have you been hit, kicked, punched, or otherwise hurt by someone within the past year? If so, by whom?: No Are you DNR?: No Advance Directives: No Advance Directives Information Provided: Yes Advance Directives on File: No service: No Current occupational status: employed and retired Cognitive needs: No Hearing needs: No Vision needs: Yes (Glasses) Meds Allergies Allergy/AdvReac Type Severity Reaction Status Date / Time lisinopril Allergy Severe anaphalyxis Verified 06/05/25 14:49 Home Medications ?Medication ?Instructions ?Recorded ?Confirmed ?Last Taken ?Type cholecalciferol (vitamin D3) 25 25 mcg PO DAILY 07/23/20 07/10/25 Unknown History mcg (1,000 unit) capsule (Vitamin D3) Assessment and Plan Final Anesthetic Review Family History of Problems with Anesthesia: No History of Problems with Anesthesia: No Documented by User: João Cabrera MD 07/14/25 11:29 [facility] Past Medical History Medical History (Updated 06/09/25 @ 09:51 by Sarah Miller RN) Bilateral cataracts Obesity (BMI 30-39.9) Vitamin D deficiency Erectile dysfunction Type 2 diabetes mellitus with hyperglycemia History of dysphagia High cholesterol Hypertension Family History Family History Father Hypertension Mother Uterine cancer Sister In good health Brother No problems noted. Surgical History Surgical History (Updated 07/10/25 @ 09:52 by Roselia Vences RN) History of prostate surgery Hx of prostate biopsy Hx of tonsillectomy History of esophagogastroduodenoscopy (EGD) Hx of colonoscopy (06/09/25) Social History Social History Housing: House Are you a primary pet caretaker to a significant other at home: No Do you presently have visiting nurse or other home services: No Alcohol intake: current Alcohol intake frequency: holidays/special occasions only Comment: 2-3 x a week2 drinks Patient Tobacco Use Status: Former Tobacco user Tobacco use type: Cigarette e-Cigarette/Vaping Use: Never Used Second Hand Smoke Exposure: No Use of substances other than those prescribed or required for medical reasons: No Have you been hit, kicked, punched, or otherwise hurt by someone within the past year? If so, by whom?: No Are you DNR?: No Advance Directives: No Advance Directives Information Provided: Yes Advance Directives on File: No service: No Current occupational status: employed and retired Cognitive needs: No Hearing needs: No Vision needs: Yes (Glasses) Meds Allergies Allergy/AdvReac Type Severity Reaction Status Date / Time lisinopril Allergy Severe anaphalyxis Verified 06/05/25 14:49 Home Medications ?Medication ?Instructions ?Recorded ?Confirmed ?Last Taken ?Type cholecalciferol (vitamin D3) 25 25 mcg PO DAILY 07/23/20 07/10/25 Unknown History mcg (1,000 unit) capsule (Vitamin D3) Exam Airway Mallampati Class: III TM Dist: >3cm Neck ROM: Full Denture: Upper and Lower Heart: RRRwith pvc Lungs: CTA Assessment and Plan Final Anesthetic Review NPO: Yes ASA Class: II Final Preanesthetic Review: No Changes in Pt Med Stat, Meds/Allgs Chart Reviewed, Consent Obtained/Reviewed and Anes Risks/Benef Reviewed Patient Risk: Low Procedure Risk: Low Anesthetic Plan Anesthetic Plan: GA Disposition: Standard PACU
[2025-07-10 09:58] VITALS: BMI 24.7
[2025-07-14 10:08] VITALS: BP 129/57; PULSE 66; RESP 16; TEMP 36.2; O2SAT 98
[2025-07-14 10:11] LABS: Glucose, Whole Blood 94 mg/dL (60-115)
[2025-07-14] MEDS: Lactated Ringers 1,000 ML 100 ML IVCONT (10:11)
--- NOTE | 2025-07-14 11:15 | MHC.SHP ---
Pre-Procedural Eval Section A - 24 Hr Update-Section A only Date of Service: 07/14/25 The patient is an INPATIENT: No Changes since office visit: No Cold of Flu in the past 2 weeks, No New Medical Problems, No Changes in Medication and No Patient answered all questions The patient has been examined within 24 hours of the surgical procedure. The History & Physical has been completed within 30 days and I have reviewed it.: Yes Section B - Complete if H&P > 30 days Chief Complaint: Malignant neoplasm of prostate Details of Present Illness: Trans perineal stereotactic MRI targeted saturation prostate biopsy Relevant Family History (Specify if Yes): No Relevant Social History: None Present Medications: see Short Stay Collaborative assessment Medical History: No relevant PMH History of Previous Operations: No relevant previous surgery Allergies: Allergies Allergy/AdvReac Type Severity Reaction Status Date / Time lisinopril Allergy Severe anaphalyxis Verified 06/05/25 14:49 Review of Systems Sugical H&P ROS: Negative: Constitution, Cardiovascular, Respiratory, Neurological, Psychiatric, Hem-Onc, Allergic/Immunologic, Gastrointestinal, Genitourinary, Musculoskeletal, Integumentary, Endocrine and Eyes/Ears/Nose/Throat Exam Surgical H&P Exam: Normal: HEENT, Normal: Heart, Normal: Lungs, Normal: Extremities, Normal: Abdomen, Normal: Skin and Normal: Neurological Plan Diagnosis/Plan: Unchanged I have reviewed the history and physical and performed a pertinent physical examination on my patient. No changes have occurred unless specified. Time Spent With Patient Time: Total time managing care of this patient today ____ minutes.
[2025-07-14 12:27] VITALS: BP 126/72; PULSE 85; RESP 15; TEMP 36.1; O2SAT 99
[2025-07-14 12:30] VITALS: BP 119/69; PULSE 76; RESP 16; O2SAT 99
[2025-07-14 12:35] VITALS: BP 114/72; PULSE 71; RESP 13; O2SAT 99
[2025-07-14 12:40] VITALS: BP 128/68; PULSE 79; RESP 13; O2SAT 100
--- NOTE | 2025-07-14 12:46 | P.OP_ITS ---
Operative Note Operative Note Date of Service: 07/14/25 Narrative: Preoperative diagnosis: Prostate Cancer Postoperative diagnosis: Prostate Cancer Procedure: 1. transrectal ultrasound-guided pudendal nerve block 2. Prostate Ultrasound image acquisition, registration and 3D model creation 3. Prostate MRI Model and Target fusion with intraoperative prostate ultrasound 3. Transperineal Ultrasound Guided Sterotactic prostate biopsy 13 including saturation biopsy of MRI identified targeted prostate lesions Surgeon: Dr. Costa Thomson Anesthetic: Sedation plus local Indications for procedure: Prostate Cancer - grade group 2, PSA 4.3. Prior prostate cryotherapy March 2024. Recent MRI 30 g prostate right lateral peripheral zone apical 12 mm lesion PI-RADS 3/4 Procedure: After informed consent was verified, the patient was brought into the procedure area. Patient identity confirmed. Perioperative antibiotics confirmed. Safety pause time out performed. Anesthesia performed per protocol. Scrotum taped out of operative area. Iodine prep used. Perineal injection of local anesthetic. Digital guided prostate pudendal nerve block performed with 10 cc of 1% lidocaine. 5cc each side. Ultrasound probe was placed per rectum. Ultrasound probe stabilized on a prostate stepper with attached perineal sterotactic targeting grid with 5mm interval holes. Perineal targeting grid A-C covering right prostate and c-F covering left prostate. Numbers 1.0-2.5 covering posterior prostate and 2.5-4.0 covering anterior prostate. [employer] software and hardware platform was used for prostate ultrasound image acquisition, ultrasound image registration, 3D model creation and MRI-US fusion image overlay. Ultrasound placement was made with external grid calibration for height and prostate diameter in both the transverse and longitudinal planes. Prostate was aligned midline and reviewed for transverse and sagittal positioning. The bottom of the prostate was aligned with the 1.0 horizontal positioning on the guidance grid. Once perineal grid calibration was confirmed prostate ultrasound data acquisition was performed with ultrasound sweeping in a transverse fashion. Images were acquired moving from prostate base to apex. This was performed in an even fashion with approx 0.5cm extra length at base and apex. The acquired ultrasound images were then registered to create 3D model boundaries in the operating room. [place] markers were applied to ultrasound images in transverse and longitudinal sterotactic fashion. [place] and base were marked first followed by conformational boundaries. A three dimensional sterotactic ultrasound model was created using [employer] software. The model was reviewed against acquired ultrasound images and perineal grid alignment was performed. The planned perineal needle sterotactic targeting, based on prior acquisition of MRI imaging, was overlaid on the ultrasound 3D images and targets confirmed through ultrasound review. Adjustments were then made between real time and projected model targeting locations. Based on pre-planning evaluation 13 targets had been identified. Targets have been identified according to template grid positions. Modelled taget locations are reviewed in real time for 3D mapping of location. These included 4 cores as saturation biopsy of described 12 mm lesion identified on MRI. Biopsies were performed moving from far left lateral inferior to far right lateral inferior. Non-target biopsies were distributed evenly between left and right prostate lobes. Sterotactic targeting of biopsy needle location was confirmed in real time with longitudinal US prior to biopsy needle firing. Cognitive adjustments to preplanned positions were made as necessary to ensure samples were taken from planned prostate areas particularly regarding depth of biopsy with respect to prostate apex and base. Saturation biopsy was performed on targeted lesions. Biopsy number was dependent on prostate lesion size. Upon biopsy completion probe was removed from the rectum. The patient tolerated the procedure well and was transferred to stable condition in the PACU. Printed instructions regarding antibiotic use and common side effects such as low-grade temperature, potential infection and bleeding were given Pathology: 13 prostate biopsy - 4 targeted CPT 88107 Modifier 22 for complexity of procedure execution (Saturation Perineal prostate biopsy) CPT code 53333: Transrectal ultrasound; this is a diagnostic test for evaluation of the prostate and surrounding structures, looking for abnormalities or suspicious areas worrisome for cancer CPT code 81958: Ultrasonic guidance for needle placement (eg, biopsy, aspiration, injection, localization device), imaging supervision and interpretation CPT 71133: 3D rendering with interpretation and reporting of computed tomography (CT), MRI, ultrasound, or other tomographic modality with image postprocessing under concurrent supervision; not requiring image postprocessing on an independent workstation
[2025-07-14 12:52] VITALS: BP 140/77; PULSE 68; RESP 19; TEMP 36.6; O2SAT 98
== END 2025-07-14 13:30 | disposition home or self-care (01) ==
PROVIDERS: PCP Internal Medicine; Visit Provider Urology
PROC: (CPT 55700; principal; 2025-07-14 11:50)
DX: C61 Malignant neoplasm of prostate (principal); N52.9 Male erectile dysfunction, unspecified; I10 Essential (primary) hypertension; E11.65 Type 2 diabetes mellitus with hyperglycemia; E78.00 Pure hypercholesterolemia, unspecified; E55.9 Vitamin D deficiency, unspecified; E66.9 Obesity, unspecified; Z79.899 Other long term (current) drug therapy; Z88.8 Allergy status to other drugs, medicaments and biological substances; Z87.891 Personal history of nicotine dependence
CPT/HCPCS: 55706; 82947; 88305; 88344; J2003; J2250; J2405; J2704

== ENCOUNTER → 2025-07-14 09:24 | Outpatient (BNV) | payer MEDICARE, SELFPAY | PROVIDERS: PCP Internal Medicine; Visit Provider Urology | DX: C61 Malignant neoplasm of prostate (principal) | CPT/HCPCS: 55706 ==

== ENCOUNTER 2025-07-23 08:02 | Outpatient (AMB) | payer MEDICARE, SELFPAY ==
--- NOTE | 2025-07-23 08:02 | A.OFFVIS_ITS ---
Intake Visit Reasons: Prostate biopsy results Intake Note: Patient is present for Prostate Biopsy Results Urology Med: Finasteride, Tadalafil Antibiotic Allergy: None Blood Thinner: None Machine Operator Picker Required: No Accompanied by: Self / Same As Patient Allergies lisinopril Allergy (Severe, Verified 07/23/25 08:03) anaphalyxis HPI Comments Details: Jan is a very pleasant 72-year-old male patient of Dr. Velez. He has a past medical history of ED, high cholesterol, hypertension, obesity, vitamin-D deficiency, and type 2 diabetes. - elevated PSA - prostate cancer Telemedicine Evaluation 15 min Consultation [employer] Michael Video 07/12 Histologic grade: 3+3=6 Sunflower score: 3+3=6 (G and M) Grade group: 1 (G and M) Tumor quantitation: Number cores positive: 2 Total number of cores: 13 Periprostatic fat inv.: Not identified Seminal vesicle inv.: Not identified Perineural inv.: Not identified LVI: Not identified Low volume low-grade disease - right side posterolateral Initially can be followed May repeat cryotherapy PSA 07/11 0.5, 05/12 4.3 Repeat prostate MRI New prostate lesion right side Is due for targeted biopsy 05/12 Diffusely decreased T2 signal intensity and decreased signal and intensity on diffusion-weighted images throughout the peripheral zone which may be related to prior cryoablation. Diffusion-weighted images are limited by artifact. There is an area of enhancement in the right lateral peripheral zone at the apex suggestive of clinically significant prostate carcinoma 12 mm 04/10 Targeted prostate cryotherapy 02/08 PSA 2.2 Prostate MRI - confirms left base single legion Prostate cancer - 05/10 low volume, intermediate risk, clinically localized PSA at diagnosis 5.1, free% 7 Prostate volume 40 g All cores positive left side Histologic type: Acinar adenocarcinoma Histologic grade: Ricardo score: 3+3=6 (F), 3+4=7 (B,D) % of pattern 4: 20% % of pattern 5: N/A Tumor quantitation: Number cores positive: 3 % of tissue involved: 6% of all tissue Periprostatic fat inv.: Not identified Seminal vesicle inv.: Not identified Perineural inv.: Not identified LVI: Not identified Has been using 5 mg Cialis daily for prostate symptoms PFSH Medical History Bilateral cataracts Obesity (BMI 30-39.9) Vitamin D deficiency Erectile dysfunction Type 2 diabetes mellitus with hyperglycemia History of dysphagia High cholesterol Hypertension Surgical History History of prostate surgery Hx of prostate biopsy Hx of tonsillectomy History of esophagogastroduodenoscopy (EGD) Hx of colonoscopy (06/09/25) Family History Father Hypertension Mother Uterine cancer Sister In good health Brother No problems noted. Social History Housing: House Are you a primary medicare insurance specialist to a significant other at home: No Do you presently have visiting nurse or other home services: No Alcohol intake: current Alcohol intake frequency: holidays/special occasions only Comment: 2-3 x a week2 drinks Patient Tobacco Use Status: Former Tobacco user Tobacco use type: Cigarette e-Cigarette/Vaping Use: Never Used Second Hand Smoke Exposure: No service: No Current occupational status: employed and retired Cognitive needs: No Hearing needs: No Vision needs: Yes (Glasses) Review of Systems Const All systems reviewed & are unremarkable except as noted in HPI and below Reports no additional complaints Card Reports no additional complaints and Denies syncope Resp Reports no additional complaints GI Reports no additional complaints Reports as per HPI and Denies change in libido Musc Reports no additional complaints Neuro Denies syncope Psych Denies change in libido Endo Denies change in libido Physical Exam Telemedicine evaluation Appropriate responses Regular breathing rate and rhythm Const General: cooperative, healthy appearing, comfortable and no acute distress Orientation/consciousness: patient oriented x3 HEENT Head: Yes normal to inspection Ears: hearing grossly normal bilaterally Face and sinus: Yes normal facial exam Mouth: moist mucous membranes Eyes General: appearance normal, both eyes and all related structures Neck Neck: Yes normal visual inspection Chest Chest palpation & inspection: normal inspection of the chest Resp Effort & Inspection: normal respiratory effort and able to speak in complete sentences GI Inspection: Yes normal to inspection Back/Spine/Pelvis Cervical Spine: normal cervical lordosis Thoracic/Lumbar Spine: thoracic and lumbar spine normal to inspection Skin General skin exam: no rashes or lesions noted Neuro General: patient oriented x3, gait normal, tone normal and moves all extremities Extrem General: Yes normal to inspection and Yes capillary refill normal Telehealth Telehealth Telehealth Platform: [employer] Location of provider rendering services: practice address Location of patient: address on file Patient Identification confirmed using: Name, : Yes Telehealth method: voice only Patient verbally consented to treatment: Yes Patient verbally consented to billing insurance company: Yes Patient informed of any privacy concerns related to visit: Yes Minutes spent on Phone/Video with Pt.: 15 Assessment & Plan Assessment & Plan (1) Prostate cancer: Comment: March 2024 transrectal ultrasound and prostate ultrasound guidance cryotherapy needle and probe placement transperineal ultrasound-guided prostate cryotherapy. Under Dr. Thomson June 2025 biopsyProstatic adenocarcinoma, Sunflower score 3+3=6 (Grade group 1), involving 7% of the tissue core Code(s): C61 - Malignant neoplasm of prostate Category: Medical Plan Six-month follow-up Orders: Orders PSA,Total (Free>4and<10) 6 Months C61 - Malignant neoplasm of prostate Patient Instructions: This note is constructed using voice recognition software. While every effort has been made to ensure accuracy survey project manager errors may have been included. Imaging studies, laboratory and physical exam results were discussed and reviewed in detail. No major barriers to patient understanding were identified. An opportunity to ask questions regarding the treatment plan was provided. All questions were answered. The patient expressed understanding and agreement with the above treatment plan. The patient is aware they should contact our office by phone for worsening of their current condition or the appearance of new urologic symptoms. Compliance is encouraged with any medications and followup testing that is ordered. It is a privilege to participate in the urologic care of your patient. If you have any questions or concerns regarding treatment for the above conditions, or other urologic issues, please do not hesitate to contact me. The office telephone contact is [phone]. Sincerely, Dr Costa Thomson MD, [facility] - Urology Compassionate Specialist Care for the Genitourinary System Coding Level of Care Code Tele Est Pt Level 3 (28493) Complex EM visit Add On G2211 Diagnoses Prostate cancer C61
== END 2025-07-23 10:12 | disposition home or self-care (01) ==
LOC: HO.HUSH 08:02
PROVIDERS: PCP Internal Medicine; Visit Provider Urology
DX: C61 Malignant neoplasm of prostate (principal)
CPT/HCPCS: 99024